=== PATIENT | male | born 1970 | race Caucasian/White ===

== ENCOUNTER → 2021-09-20 | Outpatient (CLI) | payer MEDICARE, OTHER, SELFPAY ==
--- NOTE | 2021-09-20 10:20 | HIP_PTH ---
PATIENT: MICHAEL PARIKH [facility] U#:[id number] AGE/SX: 51/M ROOM: RE09/20/[address]: Dr. Zeyad Chandler MD : [id number] BED: DIS: 09/20/2021 SPEC #: [id number] RECD: 09/20/21 15:06 STATUS: JOSEPH RERicardo #: [id number] VILMA: 09/20/21 10:[address]: Zeyad Chandler DEPT: SURGICAL PATHOLOGY RECD BY: Chiki Piedra ENTERED: 09/23/21 06:54 SP TYPE: TOTAL HIP OTHR DR: Dr. Roxi Stallworth MD [facility] Tissues: Hip, NOS Procedures: Decalcification bone/plaque Surgery Specimen Level IV HEADER OPERATION: Left total hip arthroplasty PRE-OP DIAGNOSIS: Grade 4 osteoarthritis left hip TISSUE SUBMITTED: Left hip bone and soft tissue MICROSCOPIC DIAGNOSIS Bone and tissue of left hip, total hip resection: Consistent with degenerative joint disease. AM:dhara 10/01/2021 MICROSCOPIC DESCRIPTION Slides are reviewed. GROSS DESCRIPTION Received is one container labeled with the patient's name and designated bone and soft tissue hip, left. The specimen consists of a flores femoral head measuring 4.5 x 4.5 x 5 cm. The articular surface shows minimal erosion and osteophyte formation. Also present in the specimen container are multiple irregular fragments of bone reamings and pink-yellow soft tissue measuring in aggregate 9 x 10 x 3 cm. Camera Control Operator sections are submitted in four cassettes as follows: 1 - soft tissue, 2-4 - bone after decalcification. / MARY:dhara 09/23/2021 TC:5 CPT: 84297, 54280
== END | disposition home or self-care (01) ==
LOC: LABSPEC 15:21
PROVIDERS: PCP Family Medicine; Visit Provider Specialist
DX: M16.12 Unilateral primary osteoarthritis, left hip (principal)
CPT/HCPCS: 88305; 88311

== ENCOUNTER → 2022-06-03 | Outpatient (CLI) | payer MEDICARE, OTHER, SELFPAY ==
[2022-06-03 16:17] LABS: Hematocrit 47.6 % (40-54); Hemoglobin 15.8 g/dL (13.0-16.5); Mean Corp Hgb Conc 33.2 g/dL (32-36); Mean Corpuscular Hgb 31.9 pg (27.0-32.0); Mean Corpuscular Volume 96.2 fL (80-94); Mean Platelet Vol. 10.3 fl (6.2-12.0); Platelet Count 406 K/mm3 (150-450); RBC Distribution Width CV 12.5 % (11.6-14.6); RBC Distribution Width SD 43.3 fl (35.1-43.9); Red Blood Count 4.95 M/mm3 (4.6-6.2); White Blood Count 8.5 K/mm3 (4.4-11.0)
[2022-06-03 16:59] LABS: Anion Gap 5 (5-15); BUN 16 mg/dL (7-18); BUN/Creat Ratio 24.2 RATIO (10-20); Calcium,Total 8.9 mg/dL (8.5-10.1); Chloride 110 mmol/L (98-107); Creatinine, Serum 0.66 mg/dL (0.70-1.30); EST Glomerular Filtration Rate 133 mL/min (>60); Est Glom Filt Rate - Afr Amer 161 mL/min (>60); Glucose 74 mg/dL (74-106); PSA,Total - Annual Screen 0.79 ng/mL (0.00-4.00); Potassium 4.2 mmol/L (3.5-5.1); Sodium Level 142 mmol/L (136-145)
== END | disposition home or self-care (01) ==
LOC: LAB 15:04
PROVIDERS: PCP Family Medicine; Referring Provider Urology; Visit Provider Urology
DX: Z12.5 Encounter for screening for malignant neoplasm of prostate (principal); M79.7 Fibromyalgia
CPT/HCPCS: 36415; 80048; 84153; 85027; G0103

== ENCOUNTER → 2022-06-12 | Outpatient (CLI) | payer MEDICARE, OTHER, SELFPAY ==
--- NOTE | 2022-06-12 13:54 | CT_ITS ---
STUDY: CT ABDOMEN AND PELVIS WITH CONTRAST REASON FOR EXAM: Male, 52 years old. Diffuse abdominal pain RADIATION DOSAGE (If Supplied By Facility): CTDIvol = ( 17.68 ) mGy, DLP = ( 2167.79 ) mGycm TECHNIQUE: Transaxial images were obtained from the dome of the diaphragm to the symphysis pubis without oral contrast. IV 100mL Isovue-370 was administered. Sagittal and coronal images were reconstructed. Individualized dose optimization techniques were used for this CT. COMPARISON: None. FINDINGS: The visualized lung bases are unremarkable. The visualized portions of the heart are within normal limits. Normal liver. There are surgical clips in the gallbladder fossa consistent with a prior cholecystectomy. Normal spleen. Normal pancreas. Normal bilateral adrenal glands. Normal right kidney. Left kidney shows hydronephrosis and dilated renal pelvis. Findings due to a 1.13 cm calcification at the left UPJ Postsurgical changes noted in the stomach without anastomotic leak. Normal small intestine. Post surgical changes also noted in the left upper quadrant without anastomotic leak. There is non-visualization of the appendix. Normal abdominal aorta. Normal inferior vena cava. Normal retroperitoneum. Normal urinary bladder. Normal abdominal wall. Bony structures show degenerative change with replaced left hip joint free of complication CT/Abdomen/Pelvis W IV Cont ONLY IMPRESSION: There is a 1.13 cm calcification in the left UPJ causing dilatation of the left renal calyces in the left renal pelvis. No free intraperitoneal fluid, air, or suspicious adenopathy Replaced left hip joint free of complication Electronically Signed: Ezequiel Jimenez MD at 14:48 EDT ,
== END | disposition home or self-care (01) ==
LOC: CT 13:52
PROVIDERS: PCP Family Medicine; Referring Provider Urology; Visit Provider Urology
DX: R10.2 Pelvic and perineal pain (principal)
CPT/HCPCS: 74177; Q9967

== ENCOUNTER 2022-06-25 13:59 | Day surgery (SDC) | payer MEDICARE, OTHER, SELFPAY ==
--- NOTE | 2022-06-25 14:05 | RAD_ITS ---
STUDY: X-RAY - ABDOMEN/PELVIS REASON FOR EXAM: Male, 52 years old. PRE-OP TECHNIQUE: Total views COMPARISON: None. FINDINGS: Normal visualized lung bases. There is an unremarkable bowel gas pattern. There is no demonstrated free abdominal air. Possible 1 cm stone over the left renal shadow. Surgical clips visible over the right upper quadrant. Normal soft tissue structures. There is a left hip prosthesis in place. RAD/Abdomen Single View IMPRESSION: There is a left renal calculus. Electronically Signed: Moncho Bustillo DO at 18:05 EDT ,
[2022-06-25 14:32] VITALS: BP 143/91; PULSE 73; RESP 14; TEMP 36.3; O2SAT 98; BMI 30.8
[2022-06-25] MEDS: Lactated Ringers 1,000 ML 15 ML IV (14:35)
[2022-06-25] MEDS: Cefazolin 2 GM in 0.9% Normal Saline 100 ML IV (15:19)
--- NOTE | 2022-06-25 15:53 | DCINST_ITS ---
Discharge Instructions Diet Discharge Diet: No restrictions, Light diet - advance as tolerated and Soft diet Activity Discharge Activity: Return to Normal Activity Follow Up Care Please Follow Up With: Kervin Nielson MD When: call for an appt in ten days to remove stent, need xray day of procedure to check stone. Test Results: Test results from this visit will be discussed in further detail at your follow- up appointment, if applicable. Discharge Plan Admission Primary Reason for Your Visit: left kidney stone Attending Provider: Kervin Nielson Primary Care Provider: Kristin Holliday Discharge Orders/Prescriptions Prescriptions: New ciprofloxacin HCl [Cipro] 500 mg tablet 500 mg PO BID Qty: 10 0RF oxycodone-acetaminophen [Endocet] 5-325 mg tablet 1 tab PO Q6H PRN (Reason: pain) 7 Days Qty: 20 0RF phenazopyridine [Pyridium] 100 mg tablet 100 mg PO TID PRN (Reason: pain) Qty: 14 0RF Continued venlafaxine [Effexor XR] 75 mg Capsule,Extended Release 24hr 225 mg PO DAILY gabapentin 600 mg tablet 600 mg PO TID acetaminophen 650 mg Tablet 650 mg PO Q6H PRN (Reason: Pain) tramadol 50 mg tablet 100 mg PO TID Label Comments: TAKE 1 TO 2 TABLETS BY MOUTH THREE TIMES DAILY NEEDED FOR SEVERE PAIN pantoprazole 20 mg tablet,delayed release (DR/EC) 20 mg PO DAILY ferrous sulfate 325 mg (65 mg iron) Tablet 325 mg PO BID zolpidem [Ambien] 10 mg Tablet 10 mg PO QHS PRN (Reason: Sleep) prazosin 2 mg capsule 2 mg PO QHS diclofenac sodium 1 % gel 1 g TOPICAL BID Centrum Silver Men 300-600-300 mcg Tablet 1 tab PO DAILY calcium carb-mag ox-zinc gluc 333-133-5 mg Tablet 3 tab PO DAILY Referrals / Follow Up: Kristin Holliday DO [Primary Care Provider] - Kervin Nielson MD [Med Staff - Active Staff] - Disposition Disposition (needs filled in before D/C Order can be placed): Home, Self Care
--- NOTE | 2022-06-25 15:53 | PCM.HP.STD ---
HPI - General General Date of Service: 06/25/22 Chief Complaint: Left kidney stone HPI Narrative MICHAEL PARIKH, is a 52 M who presents for treatment of a left kidney stone with shockwave lithotripsy here stent also placed a stent at the same time he also knows is possible he may need more than 1 treatment [facility] Medical History (Updated 06/25/22 @ 15:[address] Kervin Nielson MD) Alcohol use Anemia Anxiety Arthritis Asthma Depression Gastric reflux History of echocardiogram History of pain when walking History of ulceration Injury of back Injury of head and neck Kidney stones Leg cramps Migraine headache Seizures Sleep apnea Wears glasses Wears hearing aid Home Medications acetaminophen 650 mg tablet 650 mg PO Q6H PRN Pain 06/18/22 [History Last Taken Unknown] calcium carbonate 333 mg-magnesium oxide 133 mg-zinc gluc 5 mg tablet 3 tab PO DAILY 06/18/22 [History Last Taken Unknown] diclofenac sodium 1 % topical gel 1 g topical BID 06/18/22 [History Last Taken Unknown] ferrous sulfate 325 mg (65 mg iron) tablet 325 mg PO BID 06/18/22 [History Last Taken Unknown] gabapentin 600 mg tablet 600 mg PO TID 06/18/22 [History Last Taken 06/25/22] xlywpsjv-hnc-biqrt acid 300 mcg-lycopene 600 mcg-lutein 300 mcg tablet (Centrum Silver Men) 1 tab PO DAILY 06/18/22 [History Last Taken Unknown] pantoprazole 20 mg tablet,delayed release 20 mg PO DAILY 06/18/22 [History Last Taken 06/25/22] prazosin 2 mg capsule 2 mg PO QHS 06/18/22 [History Last Taken Unknown] tramadol 50 mg tablet 100 mg PO TID 06/18/22 [History Last Taken Unknown] venlafaxine 75 mg capsule,extended release 24 hr (Effexor XR) 225 mg PO DAILY 06/18/22 [History Last Taken 06/25/22] zolpidem 10 mg tablet (Ambien) 10 mg PO QHS PRN Sleep 06/18/22 [History Last Taken Unknown] ciprofloxacin HCl 500 mg tablet (Cipro) 500 mg PO BID #10 tabs 06/25/22 [Rx Last Taken Unknown] oxycodone-acetaminophen 5 mg-325 mg tablet (Endocet) 1 tab PO Q6H PRN pain 7 days #20 tabs 06/25/22 [Rx Last Taken Unknown] phenazopyridine 100 mg tablet (Pyridium) 100 mg PO TID PRN pain #14 tabs 06/25/22 [Rx Last Taken Unknown] Allergy/AdvReac Type Severity Reaction Status Date / Time amoxicillin Allergy Rash Verified 06/25/22 14:31 bupropion [From Wellbutrin] Allergy Other Verified 06/25/22 14:31 Penicillins [PCN] Allergy Rash Verified 06/25/22 14:31 Surgical History (Updated 06/18/22 @ 09:35 by Rosa Hendrix) History of esophagogastroduodenoscopy (EGD) Hx laparoscopic cholecystectomy Hx of arthroscopic knee surgery Hx of arthroscopy of shoulder Hx of colonoscopy Hx of gastric bypass Hx of hernia repair Hx of tonsillectomy Hx of total hip arthroplasty Hx of vasectomy Social History Smoking Status: Never smoker Vital Signs Vital Signs Vital Signs: 06/25/22 14:32 06/25/22 14:32 Temperature 97.4 F L Temperature Source Temporal Pulse Rate 73 Respiratory Rate 14 Respiratory Pattern Normal Blood Pressure 143/91 H Blood Pressure Mean 108 Blood Pressure Source Monitor Blood Pressure Position Semi-Fowlers Blood Pressure Location Left Arm Pulse Ox 98 Oxygen Delivery Method Room Air Weight Weight: 92 kg Body Mass Index (BMI) 30.8
--- NOTE | 2022-06-25 15:55 | OP.PCM_ITS ---
Report of Operation Date of Procedure: 06/25/22 Pre-Operative Diagnosis: Left kidney stone Post-Operative Diagnosis: The same Surgery/Procedure Performed:: Cystoscopy left stent placement, left extracorporeal shockwave lithotripsy Description of Surgical Findings:: Patient was taken back to the operating room and smooth duction of general anesthesia he was placed in dorsolithotomy position. The penis and testicles were prepped and draped in usual sterile fashion went into the bladder with a 21 Upper Sorbian rigid cystourethroscope the entire entire length the urethra is normal prostate was normal identified the left ureteral orifice advanced a wire up into the kidney and coiled in the kidney and over the wire placed a stent of 6 Upper Sorbian by 26 cm stent. The stent coiled in the kidney and bladder good position left the string of the stent but cut it short to prevent early extraction. The patient was then repositioned on the lithotripter table and we found the stone in the left renal pelvis about an 8 mm stone and we proceeded with shockwave lithotripsy a total of 3000 shocks were delivered to the stone at a rate of 90 shocks per minute power from 3 to 5 kV and we during the fragmentation we monitored the stone removed the therapy had around to make sure all the fragments were freed treated at the end we are very happy with the results from the treatment of the stone. Patient anesthetic was reversed he was taken back to PACU in good condition plan to see him back in about 10 days with a KUB and will do a stent removal if the stone looks like it is broken up all the way. Surgeon: Kervin Nielson Type of Anesthesia: General Drains: stent left Estimated Blood Loss (mL): none Admit VTE Documentation VTE Present on Admission: No VTE Mechan Device Prophylaxis: SCD's VTE Pharm Prophylaxis ordered?: No
[2022-06-25 16:21] VITALS: BP 138/83; BP 143/91; PULSE 77; RESP 18; TEMP 36.2; O2SAT 92
[2022-06-25] MEDS: Ketorolac 15 MG/ML Vial IV (16:31)
[2022-06-25 16:32] VITALS: BP 129/96; BP 143/91; PULSE 80; RESP 18; O2SAT 95
[2022-06-25 16:51] VITALS: BP 143/91; BP 144/95; PULSE 77; RESP 18; TEMP 36.4; O2SAT 97
[2022-06-25 17:19] VITALS: BP 143/91
== END 2022-06-25 17:42 | disposition home or self-care (01) ==
LOC: SDC 14:00 → AC 14:12
PROVIDERS: PCP Family Medicine; Referring Provider Urology; Visit Provider Urology
PROC: (CPT 50590; principal; 2022-06-25 16:10)
DX: N20.0 Calculus of kidney (principal); G47.30 Sleep apnea, unspecified; F41.9 Anxiety disorder, unspecified; F32.A Depression, unspecified; K21.9 Gastro-esophageal reflux disease without esophagitis; Z79.899 Other long term (current) drug therapy
CPT/HCPCS: 50590; 52332; 00873; 74018; J7120; C1769; C2617; J2405

== ENCOUNTER → 2022-07-10 | Outpatient (CLI) | payer MEDICARE, OTHER, SELFPAY ==
--- NOTE | 2022-07-10 10:00 | RAD_ITS ---
STUDY: X-RAY - ABDOMEN/PELVIS REASON FOR EXAM: Male, 52 years old. Flank pain TECHNIQUE: Two AP supine views of the abdomen and pelvis. COMPARISON: 06/25/2022 FINDINGS: Normal visualized lung bases. Left-sided JJ stent has been placed since the previous study. It appears in satisfactory position. Previous noted left renal calculus is no longer identified, and static, there are are multiple calcific densities noted along the aspect of the distal stent suggesting lithotripsy has occurred since the previous study. Continued follow-up recommended to assure clearance of the calcific densities along the distal stent. There is an unremarkable bowel gas pattern. There is no demonstrated free abdominal air. The visualized liver, spleen and kidneys are grossly normal in size and morphology. Normal soft tissue structures. There are diffuse degenerative changes of the visualized lumbar spine. Replaced left hip joint free of complication RAD/Abdomen Single View IMPRESSION: I suspect there has been lithotripsy between the previous study and current study. Previously noted large calcification projecting over the left kidney no longer identified. Instead, there is now a left-sided JJ stent in place with multiple calcific densities now noted along the distal aspect of the stent. Follow-up recommended to assure passage of the calcifications. No acute findings, degenerative bony changes Electronically Signed: Ezequiel Jimenez MD at 10:27 EDT ,
== END | disposition home or self-care (01) ==
PROVIDERS: PCP Family Medicine; Referring Provider Urology; Visit Provider Urology
DX: N20.0 Calculus of kidney (principal)
CPT/HCPCS: 74018

== ENCOUNTER 2022-07-11 00:43 | Observation (INO) | payer MEDICARE, OTHER, SELFPAY ==
[2022-07-11 00:08] VITALS: BP 140/92; PULSE 67; RESP 18; TEMP 36.3; O2SAT 98; BMI 31.7
[2022-07-11] MEDS: 0.9% Saline Lock 10 ML Syringe IV (01:05)
[2022-07-11] MEDS: 0.9% Normal Saline 1,000 ML 150 ML IV ×3 (01:05→18:04)
[2022-07-11] MEDS: Morphine 4 MG/ML Syringe IV (01:06)
[2022-07-11] MEDS: Gabapentin 600 MG Tablet PO ×4 (01:16→21:50)
[2022-07-11] MEDS: Venlafaxine XR 75 MG Capsule 225 MG PO (01:19)
[2022-07-11] MEDS: traMADol 50 MG Tablet 100 MG PO ×4 (01:21→21:49)
[2022-07-11] MEDS: Zolpidem Tartrate 5 MG Tablet PO (01:21)
--- NOTE | 2022-07-11 01:37 | NURSING ---
PT GIVEN ALL HIS HS MEDS SINCE HE HAS NOT HAD ANY PER PT AND REQUEST, INCLUDING THE AMBIEN D/T PT HAVING PTSD AND OFTEN HAS DIFFICULTY SLEEPING. MULTIPLE STONES NOTED IN URINAL AND LEFT FOR DR VEGAS TO SEE IN AM.
--- NOTE | 2022-07-11 06:00 | EKG12_ITS ---
Test Reason : AM EKG Blood Pressure : / mmHG Vent. Rate : 078 BPM Atrial Rate : 078 BPM P-R Int : 154 ms QRS Dur : 082 ms QT Int : 372 ms P-R-T Axes : 063 058 036 degrees QTc Int : 424 ms Normal sinus rhythm Normal ECG No previous ECGs available Confirmed by OMKAR KELLEY ([id number]), makeup editor MAYE CUELLAR ([id number]) on 07/16/2022 10:29:44 AM Referred By: Kervin Nielson Confirmed By:OMKAR KELLEY
[2022-07-11 06:55] LABS: Absolute Lymphocyte Count 2.37 X10^3/uL (0.83-4.51); Absolute Neutrophil Count 4.7 X10^3/uL (2.0-7.7); Basophil# 0.06 X10^3/uL; Basophil% 0.7 % (0-1); Eosinophil# 0.24 X10^3/uL; Eosinophils% 2.8 % (0-5); Hematocrit 42.2 % (40-54); Hemoglobin 13.8 g/dL (13.0-16.5); Lymphocyte # 2.37 X10^3/ul (0.83-4.51); Mean Corp Hgb Conc 32.7 g/dL (32-36); Mean Corpuscular Hgb 31.9 pg (27.0-32.0); Mean Corpuscular Volume 97.7 fL (80-94); Mean Platelet Vol. 10.1 fl (6.2-12.0); Monocyte# 1.05 X10^3/uL; Monocyte% 12.4 % (0-10); NRBC Flagged by Analyzer 0 % (0-5); Neutrophil # 4.71 X10^3/uL (2.7-7.7); Neutrophil % 55.7 % (47-70); Platelet Count 284 K/mm3 (150-450); RBC Distribution Width CV 12.4 % (11.6-14.6); RBC Distribution Width SD 44.7 fl (35.1-43.9); Red Blood Count 4.32 M/mm3 (4.6-6.2); White Blood Count 8.5 K/mm3 (4.4-11.0)
[2022-07-11 07:55] VITALS: BP 133/90; PULSE 69; RESP 18; TEMP 36.5; O2SAT 96
[2022-07-11] MEDS: 0.9% Normal Saline 1,000 ML 999 ML IV (08:15)
[2022-07-11] MEDS: Multivitamins,Ther W-Minerals Tablet 1 TABLET PO (09:20)
[2022-07-11] MEDS: Ferrous Sulfate 325 MG Tablet PO ×2 (09:20→18:05)
[2022-07-11] MEDS: Pantoprazole Sodium 20 MG Tablet PO (09:20)
--- NOTE | 2022-07-11 14:00 | RAD_ITS ---
STUDY: X-RAY - ABDOMEN/PELVIS REASON FOR EXAM: Male, 52 years old. kidney stones TECHNIQUE: Two AP supine views of the abdomen and pelvis. COMPARISON: Yesterday FINDINGS: Normal visualized lung bases. Previously noted left sided JJ stent has been removed. Persistent subtle densities in the left hemipelvis likely represent residua of the lithotripsy. There is an unremarkable bowel gas pattern. There is no demonstrated free abdominal air. The visualized liver, spleen and kidneys are grossly normal in size and morphology. Normal soft tissue structures. Normal visualized osseous structures. Replaced left hip joint free of complication RAD/Abdomen Single View IMPRESSION: Status post removal of the left-sided JJ stent. Persistent subtle densities in the left hemipelvis likely sequela from previous lithotripsy No acute findings Electronically Signed: Ezequiel Jimenez MD at 14:01 EDT ,
[2022-07-11 15:32] VITALS: BP 123/72; PULSE 68; RESP 18; TEMP 36.2; O2SAT 97
--- NOTE | 2022-07-11 15:57 | CASEMGMT ---
DIDI CM in to discuss SNYDER form with patient. RN CM explained SNYDER form, patient voiced understanding. Pt signed form and filed in chart. Pt provided with a copy of signed SNYDER form. Patient had no further questions or concerns at this time.
--- NOTE | 2022-07-11 17:59 | HP.PCM_ITS ---
HPI - General General Date of Admission: 07/11/22 Chief Complaint: Severe left flank pain HPI Narrative MICHAEL PARIKH, is a 52 M who presents to the hospital with severe pain on the left side status post left ESWL and stent placement stent was removed then he presented to an outside emergency room with severe left flank pain he was transferred here for further care KUB demonstrates multiple fragments of distal left ureter has not been able to pass so plan to take him to surgery tomorrow for laser lithotripsy of these fragments and extraction of these fragments and stent placement to left side. [facility] Medical History (Updated 07/11/22 @ 00:22 by Lei Gunn) Alcohol use Anemia Anxiety Arthritis Asthma Depression Gastric reflux History of echocardiogram History of pain when walking History of ulceration Injury of back Injury of head and neck Kidney stones Leg cramps Migraine headache Seizures Sleep apnea Wears glasses Home Medications acetaminophen 650 mg tablet 650 mg PO Q6H PRN Pain 06/18/22 [History Last Taken Unknown] calcium carbonate 333 mg-magnesium oxide 133 mg-zinc gluc 5 mg tablet 3 tab PO DAILY supplement 06/18/22 [History Last Taken 07/10/22] diclofenac sodium 1 % topical gel 1 g topical BID joint pain 06/18/22 [History Last Taken Unknown] ferrous sulfate 325 mg (65 mg iron) tablet 325 mg PO BID supplement 06/18/22 [History Last Taken 07/10/22] gabapentin 600 mg tablet 600 mg PO TID joint pain 06/18/22 [History Last Taken 07/10/22] ctrtuasd-ytb-udvfl acid 300 mcg-lycopene 600 mcg-lutein 300 mcg tablet (Centrum Silver Men) 1 tab PO DAILY supplement 06/18/22 [History Last Taken 07/10/22] pantoprazole 20 mg tablet,delayed release 20 mg PO DAILY GERD 06/18/22 [History Last Taken 07/10/22] prazosin 2 mg capsule 2 mg PO QHS nightmares 06/18/22 [History Last Taken 07/09/22] tramadol 50 mg tablet 100 mg PO TID pain 06/18/22 [History Last Taken 07/10/22] venlafaxine 75 mg capsule,extended release 24 hr (Effexor XR) 225 mg PO DAILY anxiety 06/18/22 [History Last Taken 07/10/22] zolpidem 10 mg tablet (Ambien) 10 mg PO QHS PRN Sleep 06/18/22 [History Last Taken 07/09/22] oxycodone-acetaminophen 5 mg-325 mg tablet (Endocet) 2 tab PO Q4H PRN pain 7 days #20 tabs 07/10/22 [Rx Last Taken Unknown] Allergy/AdvReac Type Severity Reaction Status Date / Time amoxicillin Allergy Rash Verified 06/25/22 14:31 bupropion [From Wellbutrin] Allergy Other Verified 06/25/22 14:31 Penicillins [PCN] Allergy Rash Verified 06/25/22 14:31 Surgical History History of esophagogastroduodenoscopy (EGD) Hx laparoscopic cholecystectomy Hx of arthroscopic knee surgery Hx of arthroscopy of shoulder Hx of colonoscopy Hx of gastric bypass Hx of hernia repair Hx of tonsillectomy Hx of total hip arthroplasty Hx of vasectomy Social History Smoking Status: Current every day smoker tobacco type: cigarettes Vital Signs Vital Signs Vital Signs: 07/11/22 00:08 07/11/22 07:55 07/11/22 15:32 Temperature 97.4 F L 97.7 F L 97.2 F L Temperature Source Oral Temporal Temporal Pulse Rate 67 69 68 Respiratory Rate 18 18 18 Blood Pressure 140/92 H 133/90 H 123/72 H Blood Pressure Mean 108 104 89 Blood Pressure Source Monitor Blood Pressure Position Semi-Fowlers Blood Pressure Location Left Arm Pulse Ox 98 96 97 Oxygen Delivery Method Room Air Room Air Room Air Weight Weight: 94.7 kg Body Mass Index (BMI) 31.7 Physical Exam Const alert and oriented x3 General Appearance: cooperative HEENT normocephalic, head/scalp atraumatic, EAC's normal and TM's normal bilaterally Eyes PERRL and EOMs intact bilaterally Pupil: sluggish Neck no lymphadenopathy, supple and no JVD General: trachea midline Lymph Lymphatic: no lymphadenopathy noted, lymphedema and lymphadenopathy Resp normal respiratory effort, normal air movement and clear to auscultation nery aterally Cardio regular rate, regular rhythm and peripheral pulses 2+ throughout GI soft to palpation, non-tender and non-distended Extremity normal capillary refill and no clubbing, cyanosis or edema General Extremity: no tenderness to palpation of joints or extremities Skin no rashes or lesions noted General Skin Exam: turgor normal Lesions: no lesions Rashes: no rashes Neuro CN's II-XII intact bilaterally Speech: speech normal Motor Exam: strength 5/5 throughout; Negative for general weakness Psych thought process normal, cooperative and affect normal Appearance: appropriate Results Lab / Micro Data Result Diagrams: 07/11/22 06:26 Labs: Laboratory Results - last 24 hr 07/11/22 06:26: WBC 8.5, RBC 4.32 L, Hgb 13.8, Hct 42.2, MCV 97.7 H, MCH 31.9, MCHC 32.7, RDW Std Deviation 44.7 H, RDW Coeff of Nichole 12.4, Plt Count 284, MPV 10.1, Immature Gran % (Auto) 0.400, Neut % (Auto) 55.7, Lymph % (Auto) 28.0, [place] % (Auto) 12.4 H, Eos % (Auto) 2.8, Baso % (Auto) 0.7, Absolute Neuts (auto) 4.7, Absolute Lymphs (auto) 2.37, Nucleated RBC % 0 Radiology Impression KUB X-Ray 07/11/22 14:00 IMPRESSION: Status post removal of the left-sided JJ stent. Persistent subtle densities in the left hemipelvis likely sequela from previous lithotripsy No acute findings Electronically Signed: Ezequiel Jimenez MD at 14:01 EDT , Assessment & Plan Assessment/Plan (1) Kidney stone on left side: PLAN: Plan for laser and basket extraction of stones on the left side and stent placement
[2022-07-11] MEDS: Doxazosin 1 MG Tablet 2 MG PO (21:49)
[2022-07-11 22:00] VITALS: BP 131/80; PULSE 68; RESP 14; TEMP 36.5; O2SAT 95
[2022-07-12] MEDS: 0.9% Normal Saline 1,000 ML 150 ML IV ×2 (00:15→05:50)
[2022-07-12] MEDS: Gabapentin 600 MG Tablet PO (05:50)
[2022-07-12] MEDS: traMADol 50 MG Tablet 100 MG PO (05:50)
[2022-07-12 05:54] VITALS: BP 147/89; PULSE 66; RESP 15; TEMP 36.6; O2SAT 97; BMI 31.6
--- NOTE | 2022-07-12 07:35 | NURSING ---
pt transferred down for surgery via bed. present
--- NOTE | 2022-07-12 07:59 | OP.PCM_ITS ---
Report of Operation Date of Procedure: 07/12/22 Pre-Operative Diagnosis: Distal stones in the left ureter status post shockwave lithotripsy Post-Operative Diagnosis: Stones past Surgery/Procedure Performed:: Cystoscopy, balloon dilation of left ureter, left ureteroscopy no stent Description of Surgical Findings:: Patient presented to the hospital with severe pain on the left side after stent removal he had a bunch of fragments that had passed down from the kidney were stuck in the distal ureter so today plan to take him to surgery to remove these stone fragments stuck in the distal ureter, KUB yesterday demonstrated the stones in distal ureter of note the patient stated that he did pass a few fragments last night Patient was taken back to the operating room at the [facility] of general anesthesia he was placed in dorsolithotomy position. The penis testicles were prepped and draped in usual fashion when in the bladder with a 21 Haitian rigid cystourethroscope I then cannulated the left ureter orifice with a Glidewire balloon dilated the distal ureter and then went in with a flexible ureteroscope was able to go all the way to the kidney inspected upper pole midpole lower pole the kidney worked my way all the way down the ureter and there was no more stone fragments left across the ureter he had passed all the stone, the night before. So therefore no stent was placed bladder was drained and is taken back to PACU in good condition to be discharged home today. Surgeon: Kervin Nielson Type of Anesthesia: General Drains: no stent Admit VTE Documentation VTE Present on Admission: No VTE Mechan Device Prophylaxis: SCD's VTE Pharm Prophylaxis ordered?: No
--- NOTE | 2022-07-12 07:59 | DCINST_ITS ---
Discharge Instructions Diet Discharge Diet: No restrictions Dressing / Incision Call your doctor if your incision/area has: Continuous Slow Oozing, Increased Pain/ Swelling, Increased Redness and Foul Smelling Discharge Call your doctor if you observe: Fever of 101 or Higher, Numbness or Tingling, Shortness of breath, Dizziness, Calf discomfort and Uncontrolled pain Follow Up Care Please Follow Up With: Kervin Nielson MD Test Results: Test results from this visit will be discussed in further detail at your follow- up appointment, if applicable. Discharge Plan Admission Admit Date/Time: 07/11/22 00:43 Primary Reason for Your Visit: stone Attending Provider: Kervin Nielson Primary Care Provider: Kristin Holliday Discharge Orders/Prescriptions Prescriptions: No Action venlafaxine [Effexor XR] 75 mg Capsule,Extended Release 24hr 225 mg PO DAILY gabapentin 600 mg tablet 600 mg PO TID acetaminophen 650 mg Tablet 650 mg PO Q6H PRN (Reason: Pain) tramadol 50 mg tablet 100 mg PO TID Label Comments: TAKE 1 TO 2 TABLETS BY MOUTH THREE TIMES DAILY NEEDED FOR SEVERE PAIN pantoprazole 20 mg tablet,delayed release (DR/EC) 20 mg PO DAILY ferrous sulfate 325 mg (65 mg iron) Tablet 325 mg PO BID zolpidem [Ambien] 10 mg Tablet 10 mg PO QHS PRN (Reason: Sleep) prazosin 2 mg capsule 2 mg PO QHS diclofenac sodium 1 % gel 1 g TOPICAL BID Centrum Silver Men 300-600-300 mcg Tablet 1 tab PO DAILY calcium carb-mag ox-zinc gluc 333-133-5 mg Tablet 3 tab PO DAILY oxycodone-acetaminophen [Endocet] 5-325 mg tablet 2 tab PO Q4H PRN (Reason: pain) 7 Days Qty: 20 0RF Referrals / Follow Up: Kristin Holliday DO [Primary Care Provider] - Kervin Nielson MD [Med Staff - Active Staff] -
--- NOTE | 2022-07-12 08:03 | PCM.DC.SUM ---
Providers Date of Admission: 07/11/22 Primary Care Physician: Dr. Kristin Holliday DO Reason For Visit: KIDNEY STONE Diagnosis Discharge Diagnosis (1) Kidney stone on left side: Status: Acute Code(s): N20.0 - Calculus of kidney Plan: Plan for laser and basket extraction of stones on the left side and stent placement Medications at Discharge Home Medications acetaminophen 650 mg tablet 650 mg PO Q6H PRN Pain 06/18/22 calcium carbonate 333 mg-magnesium oxide 133 mg-zinc gluc 5 mg tablet 3 tab PO DAILY supplement 06/18/22 diclofenac sodium 1 % topical gel 1 g topical BID joint pain 06/18/22 ferrous sulfate 325 mg (65 mg iron) tablet 325 mg PO BID supplement 06/18/22 gabapentin 600 mg tablet 600 mg PO TID joint pain 06/18/22 twhfvukt-eeb-ahqwa acid 300 mcg-lycopene 600 mcg-lutein 300 mcg tablet (Centrum Silver Men) 1 tab PO DAILY supplement 06/18/22 pantoprazole 20 mg tablet,delayed release 20 mg PO DAILY GERD 06/18/22 prazosin 2 mg capsule 2 mg PO QHS nightmares 06/18/22 tramadol 50 mg tablet 100 mg PO TID pain 06/18/22 venlafaxine 75 mg capsule,extended release 24 hr (Effexor XR) 225 mg PO DAILY anxiety 06/18/22 zolpidem 10 mg tablet (Ambien) 10 mg PO QHS PRN Sleep 06/18/22 oxycodone-acetaminophen 5 mg-325 mg tablet (Endocet) 2 tab PO Q4H PRN pain 7 days #20 tabs 07/10/22 Hospital Course Summary of Care Provided Hospital Course: Patient was admitted for severe pain on the left side after stent removal he had shockwave lithotripsy the week before and had broken up a large stone and he had developed severe fragments in the distal left ureter causing severe pain so he was admitted for pain control he did pass some fragments initially we got an x-ray still showed a lot of fragments left and then we put him on the schedule for the next day. Overnight he did pass a few more fragments the next day took him to surgery we did ureteroscopy and he had passed all the fragments so at that point in surgery we did not put a stent in he was taken back to PACU good condition he will go home today and follow-up as planned. Physical Exam Const alert and oriented x3 General Appearance: cooperative HEENT normocephalic, head/scalp atraumatic, EAC's normal and TM's normal bilaterally Eyes PERRL and EOMs intact bilaterally Pupil: sluggish Neck no lymphadenopathy, supple and no JVD General: trachea midline Lymph Lymphatic: no lymphadenopathy noted, lymphedema and lymphadenopathy Resp normal respiratory effort, normal air movement and clear to auscultation bilaterally Cardio regular rate, regular rhythm and peripheral pulses 2+ throughout GI soft to palpation, non-tender and non-distended Extremity normal capillary refill and no clubbing, cyanosis or edema General Extremity: no tenderness to palpation of joints or extremities Skin no rashes or lesions noted General Skin Exam: turgor normal Lesions: no lesions Rashes: no rashes Neuro CN's II-XII intact bilaterally Speech: speech normal Motor Exam: strength 5/5 throughout; Negative for general weakness Psych thought process normal, cooperative and affect normal Appearance: appropriate Weight / BMI Weight Weight: 94.376 kg Body Mass Index (BMI) 31.6 ABG / Lab / Microbiology Data Result Diagrams: 07/11/22 06:26 Radiography Diagnostic Testing: Radiology Impression KUB X-Ray 07/11/22 14:00 IMPRESSION: Status post removal of the left-sided JJ stent. Persistent subtle densities in the left hemipelvis likely sequela from previous lithotripsy No acute findings Electronically Signed: Ezequiel Jimenez MD at 14:01 EDT Reading Location ID and State: [address] [place] [address] , Service support , D/C Instructions Discharge Diet: No restrictions Call your doctor if your incision/area has: Continuous Slow Oozing, Increased Pain/ Swelling, Increased Redness and Foul Smelling Discharge Call your doctor if you observe: Fever of 101 or Higher, Numbness or Tingling, Shortness of breath, Dizziness, Calf discomfort and Uncontrolled pain Please Follow Up With: Kervin Nielson MD Meaningful Use Info Meaningful Use Diagnoses (Choose all that apply): None applicable Discharge Plan Admission Admit Date/Time: 07/11/22 00:43 Primary Reason for Your Visit: stone Attending Provider: Kervin Nielson Primary Care Provider: Kristin Holliday Discharge Orders/Prescriptions Prescriptions: No Action venlafaxine [Effexor XR] 75 mg Capsule,Extended Release 24hr 225 mg PO DAILY gabapentin 600 mg tablet 600 mg PO TID acetaminophen 650 mg Tablet 650 mg PO Q6H PRN (Reason: Pain) tramadol 50 mg tablet 100 mg PO TID Label Comments: TAKE 1 TO 2 TABLETS BY MOUTH THREE TIMES DAILY NEEDED FOR SEVERE PAIN pantoprazole 20 mg tablet,delayed release (DR/EC) 20 mg PO DAILY ferrous sulfate 325 mg (65 mg iron) Tablet 325 mg PO BID zolpidem [Ambien] 10 mg Tablet 10 mg PO QHS PRN (Reason: Sleep) prazosin 2 mg capsule 2 mg PO QHS diclofenac sodium 1 % gel 1 g TOPICAL BID Centrum Silver Men 300-600-300 mcg Tablet 1 tab PO DAILY calcium carb-mag ox-zinc gluc 333-133-5 mg Tablet 3 tab PO DAILY oxycodone-acetaminophen [Endocet] 5-325 mg tablet 2 tab PO Q4H PRN (Reason: pain) 7 Days Qty: 20 0RF Referrals / Follow Up: Kristin Holliday DO [Primary Care Provider] - Kervin Nielson MD [Med Staff - Active Staff] - Disposition Discharge Orders: Discharge Patient (Routine); Ordered 07/12/22 Ordered By: Dr. Kervin Nielson
--- NOTE | 2022-07-12 08:04 | NURSING ---
pt off unit in OR/PACU area
[2022-07-12 08:13] VITALS: BP 123/70; BP 147/89; PULSE 66; RESP 18; TEMP 36.3; O2SAT 95
[2022-07-12 08:15] VITALS: BP 125/73; BP 147/89; PULSE 74; RESP 18; O2SAT 95
[2022-07-12 08:37] VITALS: BP 126/74; BP 147/89; PULSE 74; RESP 18; TEMP 36.3; O2SAT 96
[2022-07-12 08:56] VITALS: BP 119/82; PULSE 63; RESP 18; TEMP 36.3; O2SAT 96
[2022-07-12] MEDS: Pantoprazole Sodium 20 MG Tablet PO (08:58)
[2022-07-12] MEDS: Multivitamins,Ther W-Minerals Tablet 1 TABLET PO (08:58)
[2022-07-12] MEDS: Venlafaxine XR 75 MG Capsule 225 MG PO (08:58)
[2022-07-12] MEDS: Ferrous Sulfate 325 MG Tablet PO (08:58)
[2022-07-12 10:21] VITALS: BP 124/76; PULSE 78; RESP 18; TEMP 36.7; O2SAT 97
== END 2022-07-12 10:20 | disposition home or self-care (01) ==
PROVIDERS: Anesthesiology; Admitting Provider Urology; PCP Family Medicine; Visit Provider Urology
PROC: 0TJ98ZZ Inspection of Ureter, Via Natural or Artificial Opening Endoscopic (ICD-10-PCS; CPT 52352; principal; 2022-07-12 07:30)
DX: N20.2 Calculus of kidney with calculus of ureter (principal); F17.210 Nicotine dependence, cigarettes, uncomplicated; M19.90 Unspecified osteoarthritis, unspecified site; J45.909 Unspecified asthma, uncomplicated; K21.9 Gastro-esophageal reflux disease without esophagitis; G47.30 Sleep apnea, unspecified; Z79.899 Other long term (current) drug therapy; Z98.84 Bariatric surgery status; D64.9 Anemia, unspecified
CPT/HCPCS: 52344; 00910; 36415; 74018; 76000; 85025; 93005; 96361; 96374; 99221; 99406; J7030; A4216; C1726; C1769; G0378; J2405

== ENCOUNTER → 2023-04-06 | Outpatient (CLI) | payer MEDICARE, OTHER, SELFPAY ==
[2023-04-06 18:16] LABS: Amphetamine Urine VISTA NEGATIVE (<1000 ng/mL); Barbiturate Urine VISTA NEGATIVE (< 200 ng/mL); Benzodiazepine Urine VISTA NEGATIVE (< 200 ng/mL); Cocaine Urine VISTA NEGATIVE (< 300 ng/mL); Ecstacy Urine VISTA NEGATIVE (< 500 ng/mL); Methadone Urine VISTA NEGATIVE (< 300 ng/mL); PCP Urine VISTA NEGATIVE (< 25 ng/mL); THC Urine VISTA NEGATIVE (< 50 ng/mL); Vista UDS pH Range 5
== END | disposition home or self-care (01) ==
PROVIDERS: PCP Nurse Practitioner Family; Referring Provider Anesthesiology Pain Medicine; Visit Provider Anesthesiology Pain Medicine
DX: Z79.891 Long term (current) use of opiate analgesic (principal); Z79.899 Other long term (current) drug therapy
CPT/HCPCS: 80307

== ENCOUNTER → 2024-10-21 | Outpatient (CLI) | payer MEDICARE, OTHER, SELFPAY ==
[2024-10-21 09:57] LABS: Hematocrit 40.5 % (40-54); Hemoglobin 13.4 g/dL (13.0-16.5); Immature Granulocytes Count 0.020 X10^3/uL (0.0-0.0); Mean Corp Hgb Conc 33.1 g/dL (32-36); Mean Corpuscular Volume 89.8 fL (80-94); Mean Platelet Vol. 10.0 fl (6.2-12.0); NRBC Flagged by Analyzer 0 % (0-5); POSITIVE MORPHOLOGY YES; Platelet Count 288 K/mm3 (150-450); RBC Distribution Width CV 13.9 % (11.6-14.6); RBC Distribution Width SD 45.5 fl (35.1-43.9); Red Blood Count 4.51 M/mm3 (4.6-6.2); White Blood Count 5.3 K/mm3 (4.4-11.0)
[2024-10-21 10:38] LABS: Differential Indicated SCAN CRITERIA MET
[2024-10-21 10:51] LABS: Anion Gap 11 (5-15); BUN 9 mg/dL (4-19); BUN/Creat Ratio 10.4 RATIO (10-20); Calcium,Total 8.8 mg/dL (7.6-11.0); Carbon Dioxide 24.5 mmol/L (21.0-32.0); Chloride 102 mmol/L (98-108); Glucose 106 mg/dL (70-99); Potassium 3.9 mmol/L (3.3-5.1)
== END | disposition home or self-care (01) ==
PROVIDERS: Referring Provider Physician Assistant Surgical; Visit Provider Physician Assistant Surgical
DX: Z01.818 Encounter for other preprocedural examination (principal)
CPT/HCPCS: 36415; 80048; 85025

== ENCOUNTER → 2025-02-09 | Outpatient (CLI) | payer MEDICARE, OTHER, SELFPAY ==
[2025-02-09 14:21] LABS: AST(SGOT) 23 U/L (<=37); Alanine Aminotransfer ALT/SGPT 30 U/L (<=46); Albumin, Serum 4.5 g/dL (3.5-5.0); Alkaline Phosphatase 94 U/L (40-129); Anion Gap 11 (5-15); BUN 8 mg/dL (4-19); BUN/Creat Ratio 7.4 RATIO (10-20); Calcium,Total 9.2 mg/dL (7.6-11.0); Carbon Dioxide 25.5 mmol/L (21.0-32.0); Chloride 105 mmol/L (98-108); Globulin 2.5 g/dL (2.2-4.2); Glucose 86 mg/dL (70-99); Magnesium 2.3 mg/dL (1.5-2.2); Potassium 4.3 mmol/L (3.3-5.1); Vitamin B12 257 pg/mL (180-914)
[2025-02-09 14:28] LABS: Ammonia 27.0 umol/L (16-60)
== END | disposition home or self-care (01) ==
DX: R56.9 Unspecified convulsions (principal); G31.84 Mild cognitive impairment of uncertain or unknown etiology
CPT/HCPCS: 36415; 80053; 81401; 82140; 82607; 83735; 84443

== ENCOUNTER → 2025-02-20 | Outpatient (CLI) | payer MEDICARE, OTHER, SELFPAY ==
--- NOTE | 2025-02-20 13:00 | RAD_ITS ---
PROCEDURE: HIPS B/L MIN 2 VIEWS W/ PELVIS 02/20/2025 REASON FOR EXAM: HIP PAIN TECHNIQUE: Procedure Code: [id number] Modality: DX Procedure: HIPS B/L 5 VIEWS W/ PELVIS Laterality: Bilateral. COMPARISON: Abdomen study of 07/11/2022. RAD/Hips B/L min 2 views w/ Pelvis IMPRESSION: A neurostimulator is partially visualized over the lower abdomen. Degenerative changes of the lower lumbar spine are again present. Sacroiliac joints appear symmetric and within the normal range for age. Bilateral total hip prostheses are in place, with satisfactory alignment noted. No evidence of loosening or metallic fracture. No fracture or dislocation is evident. Reading Location: [id number]
--- OUTSIDE RECORDS SUMMARY | 2025-02-20 17:41 | XMS RPT_ITS | CCD ---
Author Organization [facility] ion [facility] Care Team Providers Care Bean Weigher Name Role Phone Deb Rasheed LPN S Unavailable [phone] Wili CRANE Deb S Unavailable Ananya Kemp Unavailable DINA REPROGRAPHICS TECHNICIAN-BREEDER HEN SERVICE TECHNICIAN, YOSI Leach Consulting Kaseyvayulissa lable UNGERER REPROGRAPHICS TECHNICIAN-VERONICA, ANANYA Primary Care Unavai labLUIS Giles DO Admitting Unavailable LUIS LUCIANO DO Attending Unavailable KAPPER REPROGRAPHICS TECHNICIAN-BREEDER HEN SERVICE TECHNICIAN, CORRINA Mena Consulting Unavaila ble LUIS LUCIANO DO Attending Unavailable UNGERER REPROGRAPHICS TECHNICIAN-VERONICA, ANANYA Primary Care Physician Sunitha Rodriguez PA-C Unavailable Dr. Ramy Montoya Unavailable Floridalma Sanchez MA Unavailable Unavailable Sunitha Bergman Primary Care Provider Julia Rojas Attending Provider [phone] Julia Rojas Referring Provider Sunitha Rodriguez Primary Care Unavailable Julia Romero Referring Unavailable Julia Romero Attending Unavailable UNGERER, ANANYA RETAIL SPECIALIST Consulting Unavailable UNGERER, ANANYA RETAIL SPECIALIST Primary Care Unavailable UNGERER, ANANYA RETAIL SPECIALIST Admitting Unavailable UNGERER, ANANYA RETAIL SPECIALIST Attending Unavailable PROVIDER, UNKNOWN Consulting Unavailable UNGERER, ANANYA RETAIL SPECIALIST Consulting Unavailable UNGERER, ANANYA RETAIL SPECIALIST Primary Care Unavailable UNGERER, ANANYA RETAIL SPECIALIST Admitting Unavailable UNGERER, ANANYA RETAIL SPECIALIST Attending Unavailable PROVIDER, UNKNOWN Consulting Unavailable JASON CHILD DO Admitting Unavailable JASON CHILD DO Attending Unavailable JASON CHILD DO Primary Care Unavailable ANANYA NARVAEZ NP Consulting Unavailable PROVIDER, UNKNOWN Consulting Unavailable JENNIFER, SUNITHA PAC Consulting Unavailable JULIA ROMERO Admitting Unavailable JULIA ROMERO Attending Unavailable JULIA ROMERO Primary Care Unavailable PROVIDER, UNKNOWN Consulting Unavailable RODRIGUEZ, SUNITHA PAC Primary Care Unavailable RODRIGUEZ, SUNITHA PAC Consulting Unavailable RODRIGUEZ, SUNITHA PAC Admitting Unavailable RODRIGUEZ, SUNITHA PAC Attending Unavailable PROVIDER, UNKNOWN Consulting Unavailable RAMY MONTOYA MD Admitting Unavailable RODRIGUEZ, SUNITHA PAC Consulting Unavailable RAMY MONTOYA MD Attending Unavailable RAMY MONTOYA MD Primary Care Unavailable PROVIDER, UNKNOWN Consulting Unavailable RODRIGUEZ, SUNITHA PAC Consulting Unavailable RAMY MONTOYA MD Admitting Unavailable RAMY MONTOYA MD Attending Unavailable RAMY MONTOYA MD Primary Care Unavailable PROVIDER, UNKNOWN Consulting Unavailable Allergies Allergy Classification Reported Allergen(s) Allergy Type Date of Onset Reaction(s) Facility (3 sources) Amoxicillin Drug Allergy [address] [facility] (4 sources) buPROPion; Translations: [bupropion] Drug Allergy 3 Aggressive behavior (finding) [facility] Comment on above: AGGRESSIVE BEHAVIOR (3 sources) Penicillins Allergy to substance [address] [facility] (1 source) Penicillin; Translations: [penicillin] Drug Allergy [facility] (10 sources) buPROPion Drug Allergy [facility], [facility], [facility]. (10 sources) Penicillins [facility], [facility], [facility]. (1 source) Amoxicillin Drug Allergy 3 [facility] Repository (1 source) buPROPion Drug Allergy 3 [facility] (1 source) Penicillins Drug allergy (disorder) 3 [facility] (1 source) buPROPion Drug Allergy [facility] Repository (1 source) Penicillin Drug Allergy [facility] Repository Medications Current Medications Medication Drug Class(es) Dates Sig (Normalized) Sig (Original) acetaminophen 500 mg oral powder (7 sources) Start: 12-07-2023 Tylenol Extra Strength 500 mg oral powder 2 packet(s), Oral, q6h, PRN as needed for pain, # 12 packet(s), 0 Refill(s) Start Date: 12/07/23 Status: Ordered Start: 06-18-2022 take 1 tablet by cristofer th every six hours as needed for pain Acetaminophen 650 mg Tablet Active 650 mg PO EVERY 6 HOURS as needed for Pain June 18, 2022 12:00am Start: 10-10-2015 TYLENOL 8 HOUR ARTHRITIS PAIN 650 MG CR-TABS ACETAMINOPHEN [id number] Juan F Bowling Start: 10-10-2015 TYLENOL 8 HOUR ARTHRITIS PAIN 650 MG CR-TABS ACETAMINOPHEN [id number] Juan F Bowling acetaminophen 325 mg / HYDROcodone bitartrate 5 mg oral tablet (2 sources) Opioid Agonist Start: 12-09-2023 End: 12-16-2023 take 1 tablet by mouth every six hours as needed for pain Chauvin 325- 5 mg oral tablet Dose = 1 tab(s), Oral, q6h, PRN for pain, X 2 day(s), # 8 tab(s), 0 Refill(s), Acute pain, 100 Start Date: 12/12/23 Stop Date: 12/14/23 Status: Ordered acetaminophen 325 mg / oxyCODONE hydrochloride 5 mg oral tablet (13 sources) Opioid Agonist Start: 07-10-2022 take 2 tablets by mouth every four hours as needed for pain Oxycodone-Acetami nophen (Endocet) 5-325 mg tablet Active 2 {tbl} PO Q4H as needed for pain 20 7 0 July 10, 2022 Calculus of left kidney Calculus of kidney oxyCODONE-acetam inophen 5 mg-325 mg tablet ; as needed (5-325 mg) Comments: Medication taken as needed. Comment on above: Medication taken as needed. busPIRone hydrochloride 10 mg oral tablet (11 sources) Start: 12-07-2023 busPIRone 10 mg oral tablet Dose : 20 mg = 2 tab(s), Oral, BID, 0 Refill(s) Start Date: 12/07/23 Status: Ordered busPIRone 10 mg tablet ; 2 two times daily (10 mg) Calcium Carb-Mag Ox-Zinc Glu c (3 sources) Start: 06-18-2022 Calcium Carb-M ag Ox-Zinc Gluc 333-133-5 mg Tablet Active 3 {tbl} PO DAILY June 18, 2022 12:00am supplement Start: 06-18-2022 take 3 tablets by mo uth once daily Calcium Carb-Mag Ox-Zinc Gluc Active 3 TABLET PO DAILY June 17, 2022 11:00pm Start: 06-18-2022 take 3 tablets by mo uth once daily Calcium Carb-Mag Ox-Zinc Gluc Active 3 TABLET PO DAILY June 18, 2022 12:00am cefdinir 300 mg oral capsule (1 source) Cephalosporin Antibacterial Start: 12-13-2023 End: 12-18-2023 cefdinir 300 mg oral capsule Dose : 300 mg = 1 cap(s), Oral, q12h, X 5 day(s), # 10 cap(s), 0 Refill(s), 12/18/23 8:00:00 AM EDT, 100 Start Date: 12/13/23 Stop Date: 12/18/23 Status: Ordered clindamycin 300 mg oral capsule (10 sources) Lincosamide Antibacterial clindamycin HCL 300 mg capsule ; 1 four times daily (300 mg) Comments: x10 days Comment on above: x10 days cyclobenzaprine hydrochloride 10 mg oral tablet (11 sources) Muscle Relaxant Start: 12-07-2023 cyclobenzaprine 10 mg oral tablet Dose : 10 mg = 1 tab(s), Oral, qHS, PRN as needed for spasm, # 30 tab(s), 0 Refill(s) Start Date: 12/07/23 Status: Ordered diclofenac sodium 0.01 mg/mg topical gel (3 sources) Nonsteroidal Anti-inflammatory Drug Start: 06-18-2022 apply 1 g topically twice daily Diclofenac Sodium 1 % gel Active 1 g TOPICAL TWICE A DAY June 18, 2022 12:00am joint pain Start: 06-18-2022 apply 1 g topically twice aidan y Diclofenac Sodium Active 1 GM TOPICAL TWICE A DAY June 17, 2022 11:00pm doxazosin 2 mg oral tablet (20 sources) alpha-Adrenergic Maxwell Start: 12-07-2023 doxaz osin 2 mg oral tablet Dose : 2 mg = 1 tab(s), Oral, qHS, # 30 tab(s), 0 Refill(s) Start Date: 12/07/23 Status: Ordered Start: 12-07-2023 doxazosin 1 mg oral tablet Dose : 1 mg = 1 tab(s), Oral, qHS, # 30 tab(s), 0 Refill(s) Start Date: 12/07/23 Status: Ordered take 1 tablet by mouth at bedtim e doxazosin 1 mg tablet ; 1 at bedtime (1 mg) Comments: take with 2mg tab Comment on above: take with 2mg tab take with 1mg ferrous sulfate 325 mg oral tablet (3 sources) Start: 3 take 1 tablet by mouth twice daily Ferrous Sulfate 325 mg (65 mg iron) Tablet Active 325 mg PO TWICE A DAY June 18, 2022 12:00am supplement gabapentin 600 mg oral tablet (3 sources) Anti-epileptic Agent Start: 3 take 1 tablet by mouth three times daily Gabapentin 600 mg tablet Active 600 mg PO THREE TIMES A DAY June 18, 2022 12:00am joint pain hydrOXYzine pamoate 50 mg oral capsule (11 sources) Antihistamine Start: 4 hydrOXYzine pamoate 50 mg oral capsule Dose : 50 mg = 1 cap(s), Oral, BID, PRN for anxiety, # 40 cap(s), 0 Refill(s) Start Date: 12/07/23 Status: Ordered Comment on above: Medication taken as needed. Gjjdjuzn-Uwo-Qi-Lyco pen-Lutein (Centrum Silver Men) 300-600-300 mcg Tablet (1 source) Start: 3 take 300-600 tablets by mouth once daily Gikdcpwc-Olo-Re-Lyc open-Lutein (Centrum Silver Men) 300-600-300 mcg Tablet Active 1 TABLET PO DAILY June 18, 2022 12:00am Eb-Yay-Sbgbr-K1-Lyco pen-Lutein (Centrum Silver Men) 300-600-300 mcg Tablet (2 sources) Start: 3 Bi-Bif-Fugay-K1-Lyc open-Lutein (Centrum Silver Men) 300-600-300 mcg Tablet Active 1 {tbl} PO DAILY June 18, 2022 12:00am supplement Start: 06-18-2022 take 300-600 tablets by mouth once daily Ll-Not-Dvzkx-Y7-Ualrlxh-Pfgigr (Centrum Silver Men) 300-600-300 mcg Tablet Active 1 TABLET PO DAILY June 17, 2022 11:00pm pantoprazole 20 mg delayed release oral tablet (14 sources) Proton Pump Inhibitor Start: 06-18-2022 take 1 tablet by mouth once daily Pantoprazole 20 mg tablet,delayed release (DR/EC) Active 20 mg PO DAILY June 18, 2022 12:00am GERD prazosin 2 mg oral capsule (6 sources) alpha-Adrenergic Maxwell Start: 06-18-2022 take 1 capsule by mouth at bedtime Prazosin 2 mg capsule Active 2 mg PO AT BEDTIME June 18, 2022 12:00am nightmares Start: 10-10-2015 PRAZOSIN HCL 5 MG CAPS PRAZOSIN HCL [id number] Juan F Bowling pregabalin 150 mg oral capsule (11 sources) Start: 12-07-2023 pregabalin 150 mg oral capsule Dose : 150 mg = 1 cap(s), Oral, TID, # 180 cap(s), 0 Refill(s) Start Date: 12/07/23 Status: Ordered risperiDONE 1 mg oral tablet (10 sources) Atypical Antipsychotic risperiDO NE 1 mg tablet ; at bedtime (1 mg) rOPINIRole 1 mg oral tablet (14 sources) Nonergot Dopamine Agonist Start: 12-07-2023 rOPINIRole 1 mg oral tablet Dose : 1 mg = 1 tab(s), Oral, qHS, # 270 tab(s), 0 Refill(s) Start Date: 12/07/23 Status: Ordered Start: 10-10-2015 ROPINIROLE HCL 2 MG TABS ROPINIROLE HCL [id number] Juan F Bowling traMADol hydrochloride 50 mg oral tablet (3 sources) Opioid Agonist Start: 06-18-2022 take 2 tablets by mouth three times daily Tramadol 50 mg tablet Active 100 mg PO THREE TIMES A DAY June 18, 2022 12:00am pain Start: 06-18-2022 take 100 mg by mouth three times daily Tramadol Active 100 MG PO THREE TIMES A DAY June 17, 2022 11:00pm 24 hr venlafaxine 150 mg extended release oral capsule (17 sources) Serotonin and Norepinephrine Reuptake Inhibitor Start: 12-07-2023 venlafaxine 150 mg oral capsule, extended release Dose : 150 mg = 1 cap(s), Oral, BIDM, 0 Refill(s) Start Date: 12/07/23 Status: Ordered Start: 06-18-2022 take 1 capsule by [facility] once daily Venlafaxine (Effexor Xr) 75 mg Capsule,Extended Release 24hr Active 225 mg PO DAILY June 18, 2022 12:00am anxiety Start: 10-10-2015 EFFEXOR XR 150 MG [id number] VENLAFAXINE HCL [id number] Juan F Bowling Start: 10-10-2015 EFFEXOR XR 150 MG [id number]-BUF VENLAFAXINE HCL [id number] Juan F Bowling venlafaxine ER 1 50 mg capsule,extended release 24 hr ; 2 daily (150 mg) zolpidem tartrate 10 mg oral tablet (4 sources) gamma-Aminobutyric Acid-ergic Agonist Start: 06-18-2022 zolpidem 10 mg oral tablet Dose : 10 mg = 1 tab(s), Oral, qHS, PRN for sleep, 0 Refill(s) Start Date: 12/07/23 Status: Ordered Completed/Discontinued Medications Medication Drug Class(es) Dates Sig (Normalized) Sig (Original) clonazePAM 0.5 mg oral tablet (3 sources) Benzodiazepine Start: 10-10-2015 KLONOPIN 0.5 MG TABS CLONAZEPAM [id number] Juan F Bowling omeprazole 20 mg delayed release oral capsule (3 sources) Proton Pump Inhibitor Start: 10-10-2015 OMEPRAZOLE MAGNESIUM 20.6 (20 Base) MG CPDR OMEPRAZOLE MAGNESIUM [id number] Juan F Bowling traZODone hydrochloride 150 mg oral tablet (3 sources) Serotonin Reuptake Inhibitor Start: 10-10-2015 TRAZODONE HCL 150 MG TABS TRAZODONE HCL [id number] Juan F Bowling Problems Active Problems Problem Classification Problem Date Documented Date Episodic/Chronic Anxiety disorders (20 sources) Anxiety; Translations: [Anxiety disorder, unspecified] 07-19-2024 Chronic Calculus of urinary tract (4 sources) Kidney stone; Translations: [Calculus of kidney] 06-25-2022 Episodic Deficiency and other anemia (1 source) Iron deficiency anemia secondary to blood loss (chronic); Translations: [Iron deficiency anemia secondary to blood loss (chronic)] Onset: 05-10-2024 Chronic Esophageal disorders (20 sources) Gastroesophageal reflux disease; Translations: [Gastro-esophageal reflux disease without esophagitis] 07-19-2024 Chronic Essential hypertension (20 sources) Hypertensive disorder; Translations: [Essential (primary) hypertension] Onset: 05-10-2024 07-19-2024 Chronic Mood disorders (20 sources) Recurrent major depression in partial remission; Translations: [Major depressive disorder, recurrent, in partial remission] 07-19-2024 Chronic Osteoarthritis (20 sources) Bilateral osteoarthritis of knees; Translations: [Bilateral primary osteoarthritis of knee] 07-19-2024 Chronic Other hereditary and degenerative nervous system conditions (20 sources) Restless legs; Translations: [Restless legs syndrome] 07-19-2024 Chronic Pleurisy; pneumothorax; pulmonary collapse (2 sources) Pleural effusion; Translations: [Pleural effusion, not elsewhere classified] Onset: 12-10-2023 Episodic Pneumonia (except that caused by tuberculosis or sexually transmitted disease) (2 sources) Pneumonia; Translations: [Pneumonia, unspecified organism] Onset: 12-10-2023 Episodic Residual codes; unclassified (1 source) Sleep apnea; Translations: [Sleep apnea, unspecified] Onset: 12-09-2023 Chronic Residual codes; unclassified (1 source) Tobacco user; Translations: [Tobacco use] Onset: 12-09-2023 Episodic Residual codes; unclassified (1 source) Past history of procedure; Translations: [Other specified postprocedural states] Onset: 12-10-2023 Episodic Residual codes; unclassified (1 source) Pain; Translations: [Pain, unspecified] Onset: 12-12-2023 Episodic Residual codes; unclassified (1 source) H/O Spinal surgery 12-10-2023 Episodic Respiratory failure; insufficiency; arrest (adult) (2 sources) Acute respiratory failure; Translations: [Acute respiratory failure with hypoxia] Onset: 12-10-2023 Episodic Spondylosis; intervertebral disc disorders; other back problems (20 sources) Degeneration of intervertebral disc; Translations: [Dorsopathy, unspecified] 07-19-2024 Episodic Unclassified (10 sources) Follow up for multiple chronic conditions - The patient is here for follow-up of anxiety, depression, GERD, hypertension and other condition(s) (PTSD). The patient always takes the prescribed medications. No side effects noted. The patient has an active lifestyle but no regular exercise program. The patient's out of office blood pressure checks occur frequently and dietary compliance is fairly good usually adhering to recommendations. The patient states that there is no recent angina or dyspnea, there are no vision changes or weakness, pain is generally stable (Patient has chronic pain related to osteoarthritis in his knees and spine. [facility] in general mood has improved (Patient reports good control of his symptoms with his current medications. He sees a psychiatric provider through the [facility] for management of PTSD, anxiety, and depression.) and they do not have headaches. The patient states that the disease has mild emotional impact, no impact on relationships and mild physical impact. Psychiatrist with [facility]. Note for Multiple chronic conditions follow-up: Patient is here to establish care today, voices no concerns at this time.Patient also has a history of hypertension, restless leg syndrome, and GERD all managed by his primary team at the [facility]. 07-19-2024 Unclassified (5 sources) Number of Children 10-04-2024 Comment on above: 3. Past or Other Problems Problem Classification Problem Date Documented Da te Episodic/Chronic Other bone disease and musculoskeletal deformities (3 sources) Chondromalacia; Translations: [Chondromalacia, unspecified knee] Onset: 10-10-2015 10-18-2015 Episodic Other connective tissue disease (3 sources) Lateral epicondylitis; Translations: [Lateral epicondylitis, unspecified elbow] Onset: 12-05-2015 12-14-2015 Episodic Other non-traumatic joint disorders (5 sources) Pain in elbow; Translations: [Knee pain] Onset: 10-10-2015 12-14-2015 Episodic Other non-traumatic joint disorders (1 source) Knee pain; Translations: [Pain in unspecified knee] Onset: 10-10-2015 10-10-2015 Episodic Other screening for suspected conditions (not mental disorders or infectious disease) (19 sources) Patient encounter status; Translations: [Encounter for screening for diabetes mellitus] Onset: 05-10-2024 10-31-2024 Episodic Unclassified (5 sources) Pre-operative clearance - Surgical procedure(s) planned: other (left knee arthroscopic medial meniscectomy). Date of procedure: (10/27/2024) Surgeon: (Ramy A. Jan, M.D) and Location of procedure: ([facility]) There have been no problems with general anesthesia or blood/blood products. Prosthetics include eye glasses and other (hearing aids). Note for Pre-operative clearance: Patient reports that he is feeling well at this time. He does not have any concerns at this time. 10-04-2024 NEGATED: Highlighted row has been ruled out!Unclassified (2 sources) No Problem Information Available Results Test Name Value Interpretation Reference Range Facility CBC (INCLUDES DIFF/PLT)on Basophils (Bld) [#/Vol] 0.08 10*3/uL Normal 0-200 [facility] Comment on above: Performed By: #### 1 023, 0, 6399 #### [facility] of [place] [address] [employer]ylon Machine Operator: Tyree Marcelo MD Basophils/100 WBC (Bld) 1.6 % Normal [facility] Comment on above: Performed By: #### 1 023, 7599, 6399 #### [facility] [place] [address] [employer] Machine Operator: Tyree Marcelo MD Eosinophils (Bld) [#/Vol] 0.25 10*3/uL Normal 15-500 [facility] Comment on above: Performed By: #### 1 023, 7599, 6399 #### [facility] [place] [address] [employer] Machine Operator: Tyree Marcelo MD Eosinophils/100 WBC (Bld) 5.0 % Normal [facility] Comment on above: Performed By: #### 1 023, 7599, 6399 #### [facility] [place] [address] [employer] Machine Operator: Tyree Marcelo MD Erythrocyte distribution width (RBC) [Ratio] 13.1 % Normal 11.0-15.0 [facility] Comment on above: Performed By: #### 1 023, 7599, 6399 #### [facility] [place] [address] [employer] Machine Operator: Tyree Marcelo MD Hematocrit (Bld) [Volume fraction] 40.6 % Normal 38.5-50.0 [facility] Comment on above: Performed By: #### 1 230, 7599, 6399 #### [facility] of [place] [address] [employer] Machine Operator: Tyree Marcelo MD Hemoglobin (Bld) [Mass/Vol] 13.2 g/dL Normal 13.2-17.1 [facility] Comment on above: Performed By: #### 1 023, 7599, 6399 #### [facility] [place] [address] [employer] Machine Operator: Tyree Marcelo MD Lymphocytes (Bld) [#/Vol] 2.225 10*3/uL Normal 850-3900 [facility] Comment on above: Performed By: #### 1 230, 7599, 6399 #### [facility] [place] [address] [employer] Machine Operator: Tyree Marcelo MD Lymphocytes/100 WBC (Bld) 44.5 % Normal [facility] Comment on above: Performed By: #### 1 230, 7599, 6399 #### [facility] [place] [address] [employer] Machine Operator: Tyree Marcelo MD MCH (RBC) [Entitic mass] 29.1 pg Normal 27.0-33.0 [facility] Comment on above: Performed By: #### 1 230, 7599, 6399 #### [facility] [place] [address] [employer] Machine Operator: Tyree Marcelo MD MCHC (RBC) [Mass/Vol] 32.5 g/dL Normal 32.0-36.[address] [facility] Comment on above: Result Comment: For adults, a slight decrease in the calculated MCHC value (in the range of 30 to 32 g/dL) is most likely not clinically significant; however, it should be interpreted with caution in correlation with other red cell parameters and the patient's clinical condition. Performed By: #### 1 023, 7599, 6399 #### [facility] of [address], [address] [place] [address] Nylon Machine Operator: Tyree Marcelo MD MCV (RBC) [Entitic vol] 89.4 fL Normal 80.0-100.0 [facility] Comment on above: Performed By: #### 1 0231, 0, 6399 #### [facility] of [address], [address] [place] [address] Nylon Machine Operator: Tyree Marcelo MD Monocytes (Bld) [#/Vol] 0.665 10*3/uL Normal 200-950 [facility] Comment on above: Performed By: #### 1 0231, 7599, 6399 #### [facility] [place] [address] [employer] Machine Operator: Tyree Marcelo MD Monocytes/100 WBC (Bld) 13.3 % Normal [facility] Comment on above: Performed By: #### 1 023, 7599, 6399 #### [facility] of [address], [address] [place] [address] Nylon Machine Operator: Tyree Marcelo MD Neutrophils (Bld) [#/Vol] 1.78 10*3/uL Normal 2766-0620 [facility] Comment on above: Performed By: #### 1 0231, 7599, 6399 #### [facility] [place] [address] [employer] Machine Operator: Tyree Marcelo MD Neutrophils/100 WBC (Bld) 35.6 % Normal [facility] Comment on above: Performed By: #### 1 0231, 0, 6399 #### [facility] [place] [address] [employer]ylon Machine Operator: Tyree Marcelo MD Platelet mean volume (Bld) [Entitic vol] 10.1 fL Normal 7.5-12.5 [facility] Comment on above: Performed By: #### 1 0231, 0, 6399 #### [facility] of [address] [place] [address] Nylon Machine Operator: Tyree Marcelo MD Platelets (Bld) [#/Vol] 303 10*3/uL Normal 140-400 [facility] Comment on above: Performed By: #### 1 0231, 7600, 6399 #### [facility] of [address], [address] [place] [address] Nylon Machine Operator: Tyree Marcelo MD RBC (Bld) [#/Vol] 4.54 10*6/uL Normal 4.20-5.80 [facility] Comment on above: Performed By: #### 1 0231, 7600, 6399 #### [facility] of [address], [address] [place] [address] Nylon Machine Operator: Tyree Marcelo MD WBC (Bld) [#/Vol] 5.0 10*3/uL Normal 3.8-10.8 [facility] Comment on above: Performed By: #### 1 0231, 0, 6399 #### [facility] of [address], [address] [place] [address] Nylon Machine Operator: Tyree Marcelo MD [facility] 01-11-2025 Albumin [Mass/Vol] 4.6 g/dL Normal 3.6-5.1 [facility] Comment on above: Performed By: #### 1 0231, 7600, 6399 #### [facility] of [place] [address] [employer] Machine Operator: Tyree Marcelo MD Albumin/Globulin [Mass ratio] 2.2 {ratio} Normal 1.0-2.5 [facility] Comment on above: Performed By: #### 1 0231, 7600, 6399 #### [facility] of [place] [address] [employer]ylon Machine Operator: Tyree Marcelo MD ALP [Catalytic activity/Vol] 85 U/L Normal 35-144 [facility] Comment on above: Performed By: #### 1 0231, 7600, 6399 #### [facility] of [address], [address] [place] [address] Nylon Machine Operator: Tyree Marcelo MD ALT [Catalytic activity/Vol] 29 U/L Normal 9-46 [facility] Comment on above: Performed By: #### 1 0231, 7599, 6399 #### [facility] of [address], [address] [place] [address] Nylon Machine Operator: Tyree Marcelo MD AST [Catalytic activity/Vol] 21 U/L Normal 10-35 [facility] Comment on above: Performed By: #### 1 0231, 7599, 6399 #### [facility] of [address], [address] [place] [address] [employer]ylon Machine Operator: Tyree Marcelo MD Bilirubin [Mass/Vol] 0.3 mg/dL Normal 0.2-1.2 [facility] Comment on above: Performed By: #### 1 023, 7599, 6399 #### [facility] of [address], [address] [place] [address] [employer]ylon Machine Operator: Tyree Marcelo MD BUN/CREATININE RATIO SEE NOTE: Normal 6-22 [facility] Comment on above: Result Comment: Not Reported: BUN and Creatinine are within reference range. Performed By: #### 1 023, 7599, 6399 #### [facility] of [address], [address] [place] [address] Nylon Machine Operator: Tyree Marcelo MD Calcium [Mass/Vol] 9.4 mg/dL Normal 8.6-10.3 [facility] Comment on above: Performed By: #### 1 023, 7599, 6399 #### [facility] of [address], [address] [place] [address] Nylon Machine Operator: Tyere Marcelo MD Chloride [Moles/Vol] 105 mmol/L Normal 98-110 [facility] Comment on above: Performed By: #### 1 023, 760, 6399 #### [facility] of [address], [address] [place] [address] Nylon Machine Operator: Tyree Marcelo MD CO2 [Moles/Vol] 29 mmol/L Normal 20-32 [facility] Comment on above: Performed By: #### 1 023, 7599, 6399 #### [facility] of [place] [address] Nylon Machine Operator: Tyree Marcelo MD Creatinine [Mass/Vol] 0.98 mg/dL Normal 0.70-1.[address] [facility] Comment on above: Performed By: #### 1 023, 7599, 6399 #### [facility] of [address], [address] [place] [address] Nylon Machine Operator: Tyree Marcelo MD GFR/1.73 sq M.predicted among non-blacks MDRD (S/P/Bld) [Vol rate/Area] 91 mL/min/{1.73_m2} Normal > OR = 60 [facility] Comment on above: Performed By: #### 1 230, 7599, 6399 #### [facility] of [address], [address] [place] [address] Nylon Machine Operator: Tyree Marcelo MD Globulin (S) [Mass/Vol] 2.1 g/dL Normal 1.9-3.7 [facility] Comment on above: Performed By: #### 1 023, 7599, 6399 #### [facility] [place] [address] Nylon Machine Operator: Tyree Marcelo MD Glucose [Mass/Vol] 93 mg/dL Normal 65-99 [facility] Comment on above: Result Comment: Fasting reference interval Performed By: #### 1 0231, 7599, 6399 #### [facility] of [address], [address] [place] [address] Nylon Machine Operator: Tyree Marcelo MD Potassium [Moles/Vol] 4.9 mmol/L Normal 3.5-5.[address] [facility] Comment on above: Performed By: #### 1 023, 7599, 6399 #### [facility] of [place] [address] Nylon Machine Operator: Tyree Marcelo MD Protein [Mass/Vol] 6.7 g/dL Normal 6.1-8.1 [facility] Comment on above: Performed By: #### 1 0231, 7600, 6399 #### [facility] of [place] [address] Nylon Machine Operator: Tyree Marcelo MD Sodium [Moles/Vol] 142 mmol/L Normal 135-146 [facility] Comment on above: Performed By: #### 1 0231, 7600, 6399 #### [facility] [place] [address] Nylon Machine Operator: Tyree Marcelo MD Urea nitrogen [Mass/Vol] 10 mg/dL Normal 7-25 [facility] Comment on above: Performed By: #### 1 0231, 7600, 6399 #### [facility] [place] [address] Nylon Machine Operator: Tyree Marcelo MD LIPID PANEL, [place] [address] Cholesterol [Mass/Vol] 212 mg/dL High <200 [facility] Comment on above: Performed By: #### 1 0231, 7600, 6399 #### [facility] [place] [address] Nylon Machine Operator: Tyere Marcelo MD Cholesterol in HDL [Mass/Vol] 59 mg/dL Normal > OR = 40 [facility] Comment on above: Performed By: #### 1 0231, 7600, 6399 #### [facility] [place] [address] Nylon Machine Operator: Tyree Marcelo MD Cholesterol in LDL [Mass/Vol] 118 mg/dL High [facility] Comment on above: Result Comment: Refe rence range: <100 Desirable range <100 mg/dL for primary prevention; <70 mg/dL for patients with CHD or diabetic patients with > or = 2 CHD risk factors. LDL-C is now calculated using the Sue calculation, which is a validated novel method providing better accuracy than the Friedewald equation in the estimation of LDL-C. Sergio RON et al. DANDRE. 2013;310(19): 3153-7624 (http://education.The Poshpacker.Kinvey/faq/KKC185) Performed By: #### 1 0231, 7600, 6399 #### [facility] [address], [address] [place] [address] Nylon Machine Operator: Tyree Marcelo MD Cholesterol.total/Chol esterol in HDL [Mass ratio] 3.6 {ratio} Normal <5.0 [facility] Comment on above: Performed By: #### 1 0231, 7600, 6399 #### [facility] [address], [address] [place] [address] Nylon Machine Operator: Tyree Marcelo MD NON HDL CHOLESTEROL 153 mg/dL (calc) High <130 [facility] Comment on above: Result Comment: For patients with diabetes plus 1 major ASCVD risk factor, treating to a non-HDL-C goal of <100 mg/dL (LDL-C of <70 mg/dL) is considered a therapeutic option. Performed By: #### 1 0231, 7600, 6399 #### [facility] [address], [address] [place] [address] Nylon Machine Operator: Tyree Marcelo MD Triglyceride [Mass/Vol] 228 mg/dL High <150 [facility] Comment on above: Result Comment: If a non-fasting specimen was collected, consider repeat triglyceride testing on a fasting specimen if clinically indicated. Solomon et al. J. of Clin. Lipidol. 2015;9:129-169. Performed By: #### 1 0231, 7600, 6399 #### [facility] [address], [address] [place] [address] Nylon Machine Operator: Tyree Marcelo MD PSA, TOTALon 01-11-2025 PSA, TOTAL 0.26 ng/mL Normal < OR = 4.00 [facility] Comment on above: Result Comment: The total PSA value from this assay system is standardized against the WHO standard. The test result will be approximately 20% lower when compared to the equimolar-standardized total PSA (Ursula Hugoton). Comparison of serial PSA results should be interpreted with this fact in mind. This test was performed using the Siemens chemiluminescent method. Values obtained from different assay methods cannot be used interchangeably. PSA levels, regardless of value, should not be interpreted as absolute evidence of the presence or absence of disease. Performed By: #### 1 0231, 3320, 6399 #### [facility] [address], [address] [place] [address] Nylon Machine Operator: Tyree Marcelo MD Absolute lymphocyte countOrd ered By: Julia Romero on 10-21-2024 Lymphocytes Auto (Unsp spec) [#/Vol] 2.22 10*3/uL 0.83-4.51 [facility] Absolute neutrophil countOrd ered By: Julia Romero on 10-21-2024 Neutrophils (Bld) [#/Vol] 1.9 10*3/uL Low 2.0-7.7 [facility] Anion gap in Serum or Plasma Ordered By: Julia Romero on 10-21-2024 Anion gap [Moles/Vol] 11 mmol/L 5-15 [facility] Automated lymphocyte count a s percentage of total leukocytesOrdered By: Julia Romero on 10-21-2024 Lymphocytes/100 WBC Auto (Unsp spec) 42.3 % High 19-41 [facility] BUN/creatinine ratioOrdered By: Julia Romero on 10-21-2024 Urea nitrogen/Creatinine [Mass ratio] 10.4 mg/mg 10- [facility] Basic Metabolic Profile (BMP )on 10-21-2024 BUN/CRE 10.4 RATIO Normal -20 [facility] Comment on above: Performed By: #### L 100.0100, L500.2500 #### [facility] [address] [place], [address] Calcium [Mass/Vol] 8.8 mg/dL Normal 7.6-11.0 [facility] Comment on above: Performed By: #### L 100.0100, L500.2500 #### [facility] [address] [place], [address] Chloride [Moles/Vol] 102 mmol/L Normal 98-108 [facility] Comment on above: Performed By: #### L 100.0100, L500.2500 #### [facility] [address] [place], [address] CO2 [Moles/Vol] 24.5 mmol/L Normal 21.0-32.0 [facility] Comment on above: Performed By: #### L 100.0100, L500.2500 #### [facility] [address] [place], [address] Creatinine [Mass/Vol] 0.88 mg/dL Normal 0.70-1.20 [facility] Comment on above: Performed By: #### L 100.0100, L500.2500 #### [facility] [address] [place], [address] GAP 11 Normal 5-15 [facility] Comment on above: Performed By: #### L 100.0100, L500.2500 #### [facility] [address] [place], [address] GFR/1.73 sq M.predicted among non-blacks MDRD (S/P/Bld) [Vol rate/Area] 101 mL/min/{1.73_m2} Normal >60 [facility] Comment on above: Result Comment: mL/m in/1.73m2 CKD-EPI Creatinine Equation (2020) Performed By: #### L 100.0100, L500.2500 #### [facility] [address] [place], [address] Glucose [Mass/Vol] 106 mg/dL High 70-99 [facility] Comment on above: Performed By: #### L 100.0100, L500.2500 #### [facility] [address] [place], [address] Potassium [Moles/Vol] 3.9 mmol/L Normal 3.3-5.1 [facility] Comment on above: Performed By: #### L 100.0100, L500.2500 #### [facility] [address] [place], [address] Sodium [Moles/Vol] 138 mmol/L Normal 133-145 [facility] Comment on above: Performed By: #### L 100.0100, L500.2500 #### [facility] [address] [place], [address] Urea nitrogen [Mass/Vol] 9 mg/dL Normal 4-19 [facility] Comment on above: Performed By: #### L 100.0100, L500.2500 #### [facility] [address] [place], [address] Basophil percentageOrdered B y: Julia Romero on 10-21-2024 Basophils/100 WBC (Bld) 1.5 % High 0-1 [facility] CBC W/Diff, Automatedon 09-28 Absolute Lymph 2.22 X10 3/uL Normal 0.83-4.51 [facility] Comment on above: Performed By: #### L 100.0100, L500.2500 #### [facility] [address] [place], [address] Absolute Neut 1.9 X10 3/uL Low 2.0-7.7 [facility] Comment on above: Performed By: #### L 100.0100, L500.2500 #### [facility] [address] [place], [address] Basophils/100 WBC (Bld) 1.5 % High 0-1 [facility] Comment on above: Performed By: #### L 100.0100, L500.2500 #### [facility] [address] [place], [address] Eosinophils/100 WBC (Bld) 4.6 % Normal 0-5 [facility] Comment on above: Performed By: #### L 100.0100, L500.2500 #### [facility] [address] [place], [address] Erythrocyte distribution width (RBC) [Ratio] 13.9 % Normal 11.6-14.6 [facility] Comment on above: Performed By: #### L 100.0100, L500.2500 #### [facility] [address] [place], [address] Hematocrit (Bld) [Volume fraction] 40.5 % Normal 40-54 [facility] Comment on above: Performed By: #### L 100.0100, L500.2500 #### [facility] [address] [place], [address] Hemoglobin (Bld) [Mass/Vol] 13.4 g/dL Normal 13.0-16.5 [facility] Comment on above: Performed By: #### L 100.0100, L500.2500 #### [facility] [address] [place], [address] IG% 0.400 Normal 0.0-0.9 [facility] Comment on above: Result Comment: IG% - Immature Granulocytes (promyelocytes, myelocytes and metamyelocytes) > 1% indicates that a LEFT SHIFT is Present. Performed By: #### L 100.0100, L500.2500 #### [facility] [address] [place] [place], [address] Lymphocytes/100 WBC (Bld) 42.3 % High 19-41 [facility] Comment on above: Performed By: #### L 100.0100, L500.2500 #### [facility] [address] [place], [address] MCH (RBC) [Entitic mass] 29.7 pg Normal 27.0-32.0 [facility] Comment on above: Performed By: #### L 100.0100, L500.2500 #### [facility] [address] [place], [address] MCHC (RBC) [Mass/Vol] 33.1 g/dL Normal 32-36 [facility] Comment on above: Performed By: #### L 100.0100, L500.2500 #### [facility] [address] [place], [address] MCV (RBC) [Entitic vol] 89.8 fL Normal 80-94 [facility] Comment on above: Performed By: #### L 100.0100, L500.2500 #### [facility] [address] [place], [address] Monocytes/100 WBC (Bld) 15.4 % High 0-10 [facility] Comment on above: Performed By: #### L 100.0100, L500.2500 #### [facility] [address] [place], [address] Neutrophils/100 WBC (Bld) 35.8 % Low 47-70 [facility] Comment on above: Performed By: #### L 100.0100, L500.2500 #### [facility] [address] [place], [address] Nucleated RBC (Bld) [#/Vol] 0 10*3/uL Normal 0-5 [facility] Comment on above: Performed By: #### L 100.0100, L500.2500 #### [facility] [address] [place], [address] Platelet mean volume (Bld) [Entitic vol] 10.0 fL Normal 6.2-12.0 [facility] Comment on above: Performed By: #### L 100.0100, L500.2500 #### [facility] [address] [place], [address] Platelets (Bld) [#/Vol] 288 10*3/uL Normal 150-450 [facility] Comment on above: Performed By: #### L 100.0100, L500.2500 #### [facility] [address] [place], [address] RBC (Bld) [#/Vol] 4.51 10*6/uL Low 4.6-6.2 [facility] Comment on above: Performed By: #### L 100.0100, L500.2500 #### [facility] [address] [place], [address] RDW SD 45.5 fl High 35.1-43.9 [facility] Comment on above: Performed By: #### L 100.0100, L500.2500 #### [facility] [address] [place], [address] WBC (Bld) [#/Vol] 5.3 10*3/uL Normal 4.4-11.0 [facility] Comment on above: Performed By: #### L 100.0100, L500.2500 #### [facility] [address] [place], [address] Carbon dioxide, total [Moles /volume] in Central venous bloodOrdered By: Julia Romero on 10-21-2024 CO2 [Moles/Vol] 24.5 mmol/L 21.0-32.0 [facility] Chloride assayOrdered By: Nino Romero on 10-21-2024 Chloride [Moles/Vol] 102 mmol/L 98-108 [facility] Eosinophil percentageOrdered By: Julia Romero on 10-21-2024 Eosinophils/100 WBC (Bld) 4.6 % 0-5 [facility] Erythrocyte distribution wid th ratioOrdered By: Julia Romero on 10-21-2024 Erythrocyte distribution width (RBC) [Ratio] 13.9 % 11.6-14.6 [facility] Erythrocyte distribution wid th standard deviationOrdered By: Julia Romero on 10-21-2024 Erythrocyte distribution width (RBC) [Ratio] 45.5 fl High 35.1-43.9 [facility] Glomerular filtration rate ( GFR) estimation/1.73 sq m using serum, plasma, or whole bOrdered By: Julia Romero on 10-21-2024 GFR/1.73 sq M.predicted among non-blacks MDRD (S/P/Bld) [Vol rate/Area] 101 mL/min/{1.73_m2} >60 [facility] Comment on above: mL/min/1.73m2 CKD-EP I Creatinine Equation (2020) Hematocrit Auto (Bld) [Volum e fraction]Ordered By: Julia Romero on 10-21-2024 Hematocrit (Bld) [Volume fraction] 40.5 % 40-54 [facility] Hemoglobin measurementOrdere d By: Julia Romero on 10-21-2024 Hemoglobin (Bld) [Mass/Vol] 13.4 g/dL 13.0-16.5 [facility] Immature granulocytes/100 WB C Auto (Bld)Ordered By: Julia Romero on 10-21-2024 Immature granulocytes/100 WBC (Bld) 0.400 % 0.0-0.9 [facility] Comment on above: IG% - Immature Granu locytes (promyelocytes, myelocytes and metamyelocytes) > 1% indicates that a LEFT SHIFT is Present. MCV (mean corpuscular volume ) determinationOrdered By: Julia Romero on 10-21-2024 MCV (RBC) [Entitic vol] 89.8 fL 80-94 [facility] Mean corpuscular hemoglobin (MCH) determinationOrdered By: Julia Romero on 10-21-2024 MCH (RBC) [Entitic mass] 29.7 pg 27.0-32.0 [facility] Mean corpuscular hemoglobin concentration (MCHC) determinationOrdered By: Julia Romero on 10-21-2024 MCHC (RBC) [Mass/Vol] 33.1 g/dL 32-36 [facility] Mean platelet volume determi nationOrdered By: Julia Romero on 10-21-2024 Platelet mean volume (Bld) [Entitic vol] 10.0 fL 6.2-12.0 [facility] Monocyte percentageOrdered B y: Julia Romero on 10-21-2024 Monocytes/100 WBC (Bld) 15.4 % High 0-10 [facility] Neutrophil percentageOrdered By: Julia Romero on 10-21-2024 Neutrophils/100 WBC (Bld) 35.8 % Low 47-70 [facility] Nucleated red blood cell per centageOrdered By: Julia Romero on 10-21-2024 Nucleated RBC/100 WBC (Bld) [Ratio] 0 % 0-5 [facility] Platelet countOrdered By: Nino Romero on 10-21-2024 Platelets (Bld) [#/Vol] 288 10*3/uL 150-450 [facility] Potassium measurement (mass/ volume)Ordered By: Julia Romero on 10-21-2024 Potassium (Unsp spec) [Mass/Vol] 3.9 mmol/L 3.3-5.1 [facility] RBC Auto (Bld) [#/Vol]Ordere d By: Julia Romero on 10-21-2024 RBC (Bld) [#/Vol] 4.51 10*6/uL Low 4.6-6.2 [facility] Serum creatinine measurement (mass/volume)Ordered By: Julia Romero on 10-21-2024 Creatinine [Mass/Vol] 0.88 mg/dL 0.70-1.20 [facility] Serum glucose measurement (m ass/volume)Ordered By: Julia Romero on 10-21-2024 Glucose [Mass/Vol] 106 mg/dL High 70-99 [facility] Serum or plasma calcium hemalatha urement (mass/volume)Ordered By: Julia Romero on 10-21-2024 Calcium [Mass/Vol] 8.8 mg/dL 7.6-11.0 [facility] Serum or plasma urea nitroge n measurement (mass/volume)Ordered By: Julia Romero on 10-21-2024 Urea nitrogen [Mass/Vol] 9 mg/dL 4-19 [facility] Sodium levelOrdered By: Odalis Romero on 10-21-2024 Sodium [Moles/Vol] 138 mmol/L 133-145 [facility] White blood cell (WBC) count Ordered By: Julia Romero on 10-21-2024 WBC (Bld) [#/Vol] 5.3 10*3/uL 4.4-11.0 [facility] MR KNEE W/O LTon 09-19-2024 MR KNEE W/O [place] [address] Patient: MICHAEL PARIKH Phone#: : 1970 Age: 54 Gender: M Pt. Type: Out Account: [id number] Location: 052 Ordering: RAMY RajeshBrandie MONTOYA Exam Date: 09/19/2024/12:08 Family Phys: SUNITHA RODRIGUEZ Charge Code: [id number] Physician: Cannon Order #: [id number] Dose#: PROCEDURE: MRI KNEE LT WITHOUT CONTRAST COMPARISON: [facility], MR, KNEE LT W/O CON, 10/14/2021, 8:23. INDICATIONS: Left knee sprain TECHNIQUE: A complete multi-planar MRI was performed. FINDINGS: MEDIAL COMPARTMENT MEDIAL MENISCUS: Complex tear of the medial/posterior body of the medial meniscus. HYALINE CARTILAGE: Normal. No visible defect. BONES: Normal. No marrow pathology, fracture, or significant arthropathy. MCL AND MEDIAL CAPSULE: Normal medial collateral ligament and medial capsule. LATERAL COMPARTMENT LATERAL MENISCUS: Normal. No visible tear or significant degeneration. HYALINE CARTILAGE: Normal. No visible defect. BONES: Normal. No marrow pathology, fracture, or significant arthropathy. LCL/POSTEROLAT. COMPLEX: Normal lateral collateral ligament, fascicles, lateral capsule and ligaments. ACL: Normal appearing ligament. PCL: Normal appearing ligament. MENISCOFEMORAL: Normal meniscofemoral ligaments. PATELLOFEMORAL: There is narrowing the lateral patellofemoral joint. Mildly signal the articular cartilage is consistent with chondromalacia. There is fraying the articular cartilage EFFUSION: None. No synovitis or loose bodies. OTHER: Negative. CONCLUSION: 1. Complex tear the medial/posterior medial meniscal body. Appearance is similar to prior exam. 2. Findings consistent with chondromalacia patella. Dictated by: Vashti Branham MD on 09/23/2024 at 16:42 Continued Report - Page 2 of 2 Patient: MICHAEL PARIKH Phone#: : 1970 Age: 54 Gender: M Pt. Type: Out Account: [id number] Location: 052 Ordering: RAMY MONTOYA Exam Date: 09/19/2024/12:08 Family Phys: SUNITHAABEBA RODRIGUEZ Charge Code: [id number] Physician: Cannon Order #: [id number] Dose#: Approved by: Vashti Branham MD on 09/23/2024 at 16:52 Normal [facility] MR KNEE WO RTon 09-19-2024 MR KNEE WO RT [facility] [address] [place], [place] [address] Patient: MICHAEL PARIKH [place] Phone#: : 1970 Age: 54 Gender: M Pt. Type: Out Account: [id number] Location: 052 Ordering: RAMY MONTOYA Exam Date: 09/19/2024/12:08 Family Phys: SUNITHA BEAN Charge Code: [id number] Physician: Cannon Order #: [id number] Dose#: PROCEDURE: MRI KNEE RT WITHOUT CONTRAST COMPARISON: [facility], , KNEE RT W/O CON, 05/20/2018, 19:26. INDICATIONS: Right knee sprain TECHNIQUE: A complete multi-planar MRI was performed. FINDINGS: MEDIAL COMPARTMENT MEDIAL MENISCUS: Normal. No visible tear or significant degeneration. HYALINE CARTILAGE: Normal. No visible defect. BONES: Normal. No marrow pathology, fracture, or significant arthropathy. MCL AND MEDIAL CAPSULE: There is thickening of the posterior capsule consistent with chronic injury. LATERAL COMPARTMENT LATERAL MENISCUS: Normal. No visible tear or significant degeneration. HYALINE CARTILAGE: Normal. No visible defect. BONES: Normal. No marrow pathology, fracture, or significant arthropathy. LCL/POSTEROLAT. COMPLEX: Normal lateral collateral ligament, fascicles, lateral capsule and ligaments. ACL: Normal appearing ligament. PCL: Normal appearing ligament. MENISCOFEMORAL: Normal meniscofemoral ligaments. PATELLOFEMORAL: There is minimal lateral patellar subluxation. Mildly abnormal signal of the patellar articular cartilage consistent with chondromalacia patella. EFFUSION: None. No synovitis or loose bodies. OTHER: Negative. CONCLUSION: 1. Chronic injury of the medial posterior capsule. 2. There is no evidence of acute meniscal abnormality. 3. Anterior and posterior cruciate ligaments are intact. 4. Findings consistent with chondromalacia patella. Continued Report - Page 2 of 2 Patient: MICHAEL PARIKH Phone#: : 1970 Age: 54 Gender: M Pt. Type: Out Account: [id number] Location: 052 Ordering: RAMY RajeshBrandie JAN Exam Date: 09/19/2024/12:08 Family Phys: SUNITHA RODRIGUEZ Charge Code: [id number] Physician: Cannon Order #: [id number] Dose#: Dictated by: Vashti Branham MD on 09/23/2024 at 10:20 Approved by: Vashti Branham MD on 09/23/2024 at 10:51 Normal [facility] ED MED ADMINISTRATION DETAIL on 06-13-2024 ED MED ADMINISTRATION DETAIL Rope [employer]utter Medication Administration Record [address] [address] [id number] 06/10/2024 Patient: MICHAEL PARIKH Sex: Male : 1970 Age: 54y MEASUREMENTS: Wt: 98.0 kg, Ht/Emeka: 68.0 in, BMI: 32.84 ALLERGIES: Penicillins, Wellbutrin, amoxicillin Medication Ordered Medication Administration Date/Time IV NS 0.9 % 1000 22:06/10 IV NS 0.9 % 1000 mL started in bag#1 1000 mL at Started mL at 150 mL/hr 150 mL/hr over 1 hour(s) via Site# 1. - 22:00 Herbie Arevalo R.N. 22:00 06/10/2024 (NOW x1) Herbie Arevalo R.N. 01:40 06/11 Medication Discontinued: bag #1 completed upon Stopped discharge. Total amount infused: 1000 mL. IV patency established. 01:40 06/11/2024 IV site checked: no pain, redness, or swelling. IV flushed thoroughly Jared Sarabia post-medication administration. - 01:45 Jared Sarabia R.N. R.N. Scanned Clindamycin IVPB 22:00 06/10 Clindamycin IVPB 600mg/50ml Premix 600 mg started Started 600mg/50ml Premix at 100 mL/hr over 1 hour(s) via Site# 1. - 22:00 Herbie Arevalo 22:00 06/10/2024 600 mg at 100 R.N. Herbie Arevalo R.N. mL/hr (NOW x1) Stopped :06/11 Medication Discontinued: IV completed upon :06/11/2024 discharge. Total amount infused: 50 mL. IV patency established. IV Jared Sarabia, site checked: no pain, redness, or swelling. IV flushed thoroughly R.N. post-medication administration. - 01:45 Jared Sarabia R.N. Scanned MORPHine IVP 4 22:00 06/10 MORPHine IVP 4 mg given over 2 minute(s) via Site# Given mg (NOW x1, HIGH 1. - 22:00 Suzie ToneyN. 22:06/10/2024 ALERT Herbie Arevalo R.N. MEDICATION) Not Scanned 1 of 2 [employer] Medication Ordered Medication Administration Date/Time Ondansetron IVP 4 21:59 06/10 Ondansetron IVP 4 mg given over 2 minute(s) via Given mg (NOW x1) Site# 1. - 21:59 Suzie ToneyNBrandie 21:59 06/10/2024 Herbie Arevalo R.N. Scanned MORPHine IVP 4 00:51 06/11 MORPHine IVP 4 mg given via Site# 1. Allergies Given mg (NOW x1, HIGH verified and confirmed 5 rights. IV patency established. IV site 00:51 06/11/2024 ALERT checked: no pain, redness, or swelling. IV flushed thoroughly Jared Sarabia MEDICATION) pre-medication administration. IVP given by nurse. Information R.N. reviewed with patient including reason for taking this medication, Not Scanned signs of allergic reaction and precautions. Verbalizes understanding. - 00:51 Jared Sarabia R.N. 2 of 2 Normal [facility] ED NURSES CLINICAL NOTEon ED NURSES CLINICAL NOTE Nurse Narrative Nurse Clinical Narrative [address] [address] [id number] 06/10/2024 Patient: MICHAEL PARIKH Sex: Male : 1970 Age: 54y Primary Insurance: MEDICARE OUTPATIENT Policy Number: [id number] Subscriber: Other Secondary Insurance: [employer] Policy Number: [id number] Subscriber: Other Disposition: Discharge to Home Disposition Decision Time: 00:05 06/11/2024 Departure Time: 01:45 06/11/2024 TRIAGE Arrived by private vehicle. Historian: (patient). ( Pt c/o tooth pain.). Triage time: 20:27 06/10/2024. Acuity: LEVEL 4. Chief Complaint: DENTAL PAIN. -- 20:33 06/10/24 EDT Suzie SandersNBrandie 20:06/10/24. SEPSIS SCREEN: NEGATIVE. SIRS criteria negative. -- 20:06/10/24 EDT Suzie SandersNBrandie 20:06/10/24. BP: 131/81 MAP: 98. HR: 85. RR: 16. O2 saturation: 97% Temperature: 98.6 F. Pain level now 8/10. -- 20:33 06/10/24 EDT Giovanny Anderson R.N. Measurements: 20:06/10/24 Wt: 98.0 kg, Ht/Emeka: 68.0 in, BMI: 32.84 -- 20:31 06/10/24 EDT Giovanny Anderson R.N. Medications: ropinirole 1 mg tablet: 1 tablet every night. -- 20:35 06/10/24 EDT Giovanny Anderson R.N. 1 of 4 Nurse Narrative Allergies: amoxicillin -- 20:06/10/24 EDT Giovanny Anderson RKassie Penicillins -- 20:06/10/24 EDT Suzie SandersNBrandie Wellbutrin -- 20:06/10/24 EDT Suzie SandersN. Problems: PTSD -- 20:06/10/24 EDT Giovanny Anderson R.N. Anxiety disorder -- 20:06/10/24 EDT Suzie SandersN. Depression -- 20:06/10/24 EDT Suzie SandersN. Fibromyalgia -- 20:30 06/10/24 EDT Suzie SandersN. Restless Legs Syndrome -- 20:30 06/10/24 EDT Suzie SandersYanet Arthritis -- 20:30 14/25 DREWT Giovanny Anderson R.N. ADDITIONAL SURGERIES: Hip Surgery -- 20:06/10/24 JOYCE Anderson R.N. Cholecystectomy -- 20:06/10/24 JOYCE Anderson R.N. History 20:06/10/24. SOCIAL HX: Former smoker. Alcohol use; consumes beer occasionally. Drug use: marijuana. The patient has not traveled outside the [place] Infectious disease exposure: No infectious disease exposure. ABUSE ASSESSMENT: The patient answered yes to the question(s) Do you feel safe in your home? and no to the question(s) Are you afraid to go home?. SELF HARM ASSESSMENT: Self harm assessment was performed. The patient answered no to the question(s) Have you recently felt down, depressed, or hopeless? and Do you have thoughts of harming or killing yourself?. FALL RISK ASSESSMENT: Fall risk assessment completed. No risk factors identified. -- 20:33 06/10/24 JOYCE Anderson R.N. 2 of 4 Nurse Narrative PHYSICAL ASSESSMENT 22:06/10/24. GENERAL / NEURO / PSYCH: Alert. Oriented X 4. HEENT: ( LEFT FACIAL SWELLING THAT STARTED AFTER DINNER). RESPIRATORY: Respirations not labored. Chest nontender. Breath sounds within normal limits. CVS: Normal sinus rhythm noted. Capillary refill less than 2 seconds. Pulses within normal limits. GI / : Abdomen soft and nontender and normal bowel sounds. SKIN: Skin is warm and dry. -- 22:06/10/24 JOYCE Arevalo R.N. NURSING PROGRESS NOTES 21:06/10/24. Ondansetron IVP 4 mg given over 2 minute(s) via Site# 1. -- 21:06/10/24 JOYCE Arevalo R.N. 21:06/10/24. Site #1 started via IV in the right antecubital space with an 18g angiocath; 1 attempt. Blood drawn: rainbow set tube(s). -- 21:06/10/24 JOYCE Arevalo R.N. 22:06/10/24. MORPHine IVP 4 mg given over 2 minute(s) via Site# 1. -- 22:00 06/10/24 EDT Herbie Arevalo R.N. 22:00 06/10/24. Clindamycin IVPB 600mg/50ml Premix 600 mg started at 100 mL/hr over 1 hour(s) via Site# 1. -- 22:00 06/10/24 EDT Herbie Arevalo R.N. 22:00 06/10/24. IV NS 0.9 % 1000 mL started in bag#1 1000 mL at 150 mL/hr over 1 hour(s) via Site# 1. -- 22:00 06/10/24 EDT Herbie Arevalo R.N. 22:06 06/10/24. RESPIRATORY: No respiratory distress. Breath sounds normal. CVS: Normal sinus rhythm noted. SKIN: Skin is warm and dry. Skin color within normal limits. Two patient identifiers checked. Call light placed in reach. Side rails up x 2. Bed placed in lowest position. Brakes of bed on. Brakes of chair on. -- 22:06/10/24 EDT Herbie Arevalo R.N. 22:53 06/10/24. ( REPORT TO JARED TOLBERT SBAR FORMAT). -- 22:53 06/10/24 EDT Herbie Arevalo R.N. 23:01 06/10/24. Care transferred and report received (From Chema TOLBERT). -- 23:06 06/10/24 EDT Jared Sarabia R.N. 00:51 06/11/24. MORPHine IVP 4 mg given via Site# 1. Allergies verified and confirmed 5 rights. IV patency established. IV site checked: no pain, redness, or swelling. IV flushed thoroughly pre-medication administration. IVP given by nurse. Information reviewed with patient including reason for taking this medication, signs of allergic reaction and precautions. Verbalizes understanding. -- 00:51 06/11/24 EDT Jared Sarabia R.N. DISPOSITIO (more content not included)... Normal [facility] ED ORDER SHEET (CPOE ONLY)on 06-13-2024 ED ORDER SHEET (CPOE ONLY) Order Sheet Order Sheet [address] [place] [address] [id number] 06/10/2024 [id number] Sex[facility] Male : 1970 Age: 54y MEASUREMENTS: Wt: 98.0 kg, Ht/Emeka: 68.0 in, BMI: 32.84 ALLERGIES: Penicillins, Wellbutrin, amoxicillin MEDICATION/IV/DRIP/FLUI D ORDERS Order Description Priority Entered Acknowledged Completed IV NS 0.9 %1000 mL at 150 21:43 06/10/2024 21:52 22:00 mL/hr (NOW x1) Jason Child D.O. 06/10/2024 06/10/2024 Herbie Toney R.NBrandie R.N. Clindamycin IVPB 600mg/50ml 21:43 06/10/2024 21:52 22:00 [id number] mg at 100 mL/hr Jason Child D.O. 06/10/2024 06/10/2024 (NOW x1) Herbie Toney R.N. R.NBrandie MORPHine IVP4 mg (NOW x1, 21:43 06/10/2024 21:52 22:00 HIGH ALERT MEDICATION) Jason Child D.O. 06/10/2024 06/10/2024 Herbie Toney R.N. R.N. Ondansetron IVP4 mg (NOW x1) 21:44 06/10/2024 21:52 21:59 Jason Child D.O. 06/10/2024 06/10/2024 Herbie Toney R.N. R.NBrandie 1 of 2 Order Sheet MORPHine IVP4 mg (NOW x1, 00:30 06/11/2024 00:31 00:51 HIGH ALERT MEDICATION) Jason Child D.O. 06/11/2024 06/11/2024 David Galindo R.N. Reason for ordering with alerts: Clinical consideration given --00:30 06/11/2024 Jason Child D.O. LAB ORDERS Order Description Priority Entered Acknowledged Collected Completed CBC w Diff Stat Stat 21:43 06/10/2024 21:52 06/10/2024 21:52 06/10/2024 Hoda Perez Samuel Burgett, R.N. R.N. CMP Stat Stat 21:43 06/10/2024 21:52 06/10/2024 21:52 06/10/2024 Hoda Perez Samuel Burgett, R.N. R.N. Amylase Stat Stat 23:46 06/10/2024 00:30 06/11/2024 00:30 06/11/2024 Hoda Perez R.N. [place], R.N. DIAGNOSTIC STUDY ORDERS Order Description Priority Entered Acknowledged Completed CT Facial w Cont Stat Stat 21:43 06/10/2024 21:52 21:52 Jason Child D.O. 06/10/2024 06/10/2024 Herbie Toney R.N. R.N. Reason for Study: Facial Pain STAFF ORDERS Order Description Priority Entered Acknowledged Collected Completed [Electronically signed by Jason Child D.O. (06/13/2024 21:17 EDT)] 2 of 2 Normal [facility] ED PHYSICIAN CLINICAL REPORT on 06-13-2024 ED PHYSICIAN CLINICAL REPORT Narrative Physician Clinical Narrative [address] [address] [id number] 06/10/2024 Patient: MICHAEL PARIKH Sex: Male : 1970 Age: 54y Primary Insurance: MEDICARE OUTPATIENT Policy Number: [id number] Subscriber: Other Secondary Insurance: [employer] Policy Number: [id number] Subscriber: Other Disposition: Discharge to Home Disposition Decision Time: 00:05 06/11/2024 Departure Time: 01:45 06/11/2024 Measurements Wt: 98.0 kg, Ht/Emeka: 68.0 in, BMI: 32.84 Initial Vital Sign Measured Time BP MAP HR RR O2Sat ETCO2 Temp Pain GCS RTS 20:33 06/10/2024 131/81 98 85 16 97% 98.6 F 8 Time Seen: 21:17 06/10/2024. Arrived- By private vehicle. Historian- patient. HISTORY OF PRESENT ILLNESS Chief Complaint: DENTAL PAIN. TOOTHACHE, JAW PAIN and SWELLING OF JAW / FACE. This started yesterday and is still present (worse). No sore throat, mouth sores, ear pain or swollen face. The patient has had toothache, swelling of the jaw, jaw pain, facial pain and nasal congestion. The patient has had a nasal discharge. Similar symptoms previously. None. Recent medical care: Not recently seen/assessed. REVIEW OF SYSTEMS of 11 Narrative : No difficulty with urination. SKIN: No skin rash. MUSCULOSKELETAL: No joint pain. NEUROLOGICAL: The patient has had a headache. No fainting episodes. CONSTITUTIONAL: No fever. RESPIRATORY: No cough or difficulty breathing. CVS: No chest pain. GI: No nausea, diarrhea, abdominal pain or vomiting. ENDO/HEME/LYMPH: The patient has had enlarged lymph nodes. PAST HISTORY See nurses notes. Anxiety disorder Arthritis Depression Fibromyalgia PTSD Restless Legs Syndrome Surgeries: Cholecystectomy Hip Surgery Medications: ropinirole 1 mg tablet: 1 tablet every night. Allergies: amoxicillin Penicillins Wellbutrin SOCIAL HISTORY Heavy tobacco smoker- less than 1 pack per day. Occasional alcohol use. Drug use: marijuana. ADDITIONAL NOTES The nursing notes have been reviewed. PHYSICAL EXAM of 11 Narrative Appearance: Alert. Patient in mild distress. Head: Moderate swelling of the left mandible. No facial erythema. Eyes: Pupils equal, round and reactive to light. No conjunctival findings. ENT: Severe, extensive dental decay. Moderate dental tenderness of multiple teeth with gingival tenderness (lower left first premolar and second premolar, lower left first molar, second molar and third molar). Nose normal. Pharynx normal. Lips normal. Uvula midline. (Some swelling redness and tenderness noted to the left lower gums. No focal abscess noted.). Neck: Trachea midline. No adenopathy. Thyroid normal. Neck supple. CVS: Normal heart rate and rhythm. Heart sounds normal. Pulses normal. Respiratory: No respiratory distress. Breath sounds normal. Chest nontender. Abdomen: Soft and nontender. No organomegaly. Skin: Normal skin color. No rash. Extremities: Extremities exhibit normal ROM. Extremities nontender. Neuro: Oriented X 3. No motor deficit. No sensory deficit. (Normal speech. No slurred speech. No hot potato voice.). LABS, X-RAYS, AND EKG Laboratory Tests: CBC + DIFF Final VILMA: 06/10/2024 22:32:00 EDT MsgRcvd: 06/10/2024 23:12 EDT Lab Test Result Reference Status Received Comments 06/10/2024 23:12 CBC-COMPLETE CBC + DIFF Final EDT BLOOD COUNT 06/10/2024 23:12 WBC 6.9 x 10/UL 4.5 - 10.8 Final EDT 06/10/2024 23:12 RBC 4.77 x 10/UL 4.50 - 6.00 Final EDT 06/10/2024 23:12 HEMOGLOBIN 14.7 g/dl 13.0 - 17.5 Final EDT 06/10/2024 23:12 HEMATOCRIT 42.4 % 40.0 - 52.0 Final EDT 3 of 11 Narrative Lab Test Result Reference Status Received Comments 06/10/2024 23:12 MCV 89 fl 81 - 98 Final EDT 06/10/2024 23:12 MCH 31 pg 27 - 33 Final EDT 06/10/2024 23:12 MCHC 35 X10 3 32 - 36 Final EDT 06/10/2024 23:12 RDW/CV 13.3 % 12.0 - 15.6 Final EDT 06/10/2024 23:12 PLATELET 303 x10/UL 150 - 450 Final EDT 06/10/2024 23:12 AUTOMATED MPV 7.7 fl 6.4 - 10.5 Final EDT DIFFERENTIAL 06/10/2024 23:12 NEUT % 48.8 % 46.0 - 76.0 Final EDT 06/10/2024 23:12 LYMPH % 33.4 % 20.0 - 45.0 Final EDT 14.4 % 06/10/2024 23:12 MONOS % 0.0 - 10.0 Final Above high normal EDT 06/10/2024 23:12 EO % 3.0 % 0.0 - 7.0 Final EDT 06/10/2024 23:12 BASO % 0.4 % 0.0 - 2.0 Final EDT 06/10/2024 23:12 Lymph # 2.30 x10/UL 0.80 - 2.80 Final EDT 06/10/2024 23:12 Neut # 3.36 x10/UL 1.50 - 7.10 Final EDT 4 of 11 Narrative Lab Test Result Reference Status Received Comments 06/10/2024 23:12 Cataño # 0.99 x10/UL 0.20 - 1.00 Final EDT 06/10/2024 23:12 EO # 0.21 x10/UL 0.00 - 0.50 Final EDT 06/10/2024 23:12 Baso # 0.03 x10/UL 0.00 - 0.10 Final EDT 06/10/2024 23:12 MANUAL (more content not included)... Normal [facility] ED SUPER BILLon 06-13-2024 ED SUPER BILL [facility] [address] [address] [id number] 06/10/2024 Patient: MICHAEL PARIKH Sex: Male : 1970 Age: 54y Item Facility Professional Category Description Code Code Quantity Fee Total Nurse/E/M EMERGENCY 886146 1 $0.00 $0.00 DEPARTMENT VISIT HIGH/URGENT SEVERITY (79910-09) Nurse/IV/IM/Infusions Drip/IVPB 890320 3 $0.00 $0.00 additional hour (14321) Nurse/IV/IM/Infusions Drip/IVPB initial 739769 1 $0.00 $0.00 (06139) Nurse/IV/IM/Infusions IVP additional 587894 2 $0.00 $0.00 push (55236) Nurse/IV/IM/Infusions IVP same med 652308 1 $0.00 $0.00 (31 min apart) (33486) Grand Total $0.00 Providers Jason Child D.O. 1 of 2 [facility] Chief Complaint DENTAL PAIN. TOOTHACHE, JAW PAIN and SWELLING OF JAW / FACE. Principal Diagnosis Acute sialoadenitis (Sialoadenitis left submandibular gland without obstructing stone and without abscess.). ICD-10 Codes K11.21: Acute sialoadenitis 2 of 2 Normal [facility] ED VISIT SUMMARYon ED VISIT SUMMARY Visit Overview Visit Overview [address] [place] [address] [id number] 06/10/2024 Patient: MICHAEL PARIKH Sex: Male : 1970 Age: 54y 06/13/2024 09:17 PM EDT ED Arrival:20:25 06/10/2024 EDT Status: Recent Travel:no Language:eng Adv Directive: Isolation Status: Ethnicity:N Fall Risk:no risk Infectious Disease Exposure:no Measurements:5'8 / 172.7 Self-Harm Status:risk Sepsis Screen:negative cm 216.0 lb / 98.0 kg Chief Complaint:DENTAL PAIN and (Pt c/o tooth pain.) ALLERGIES amoxicillin Penicillins Wellbutrin HOME MEDICATIONS ropinirole 1 mg tablet: 1 tablet every night. PAST MEDICAL HISTORY / PROBLEMS Anxiety disorder 1 of 3 Visit Overview Arthritis Depression Fibromyalgia PTSD Restless Legs Syndrome See nurses notes PAST SURGICAL HISTORY Cholecystectomy Hip Surgery SOCIAL HISTORY Smoking status: No Alcohol use: Yes Drug use: Yes ED COURSE MEDICATIONS GIVEN IN EMERGENCY DEPARTMENT 21:59 06/10/24 Ondansetron IVP 4 mg over 2 minute(s) 22:00 06/10/24 MORPHine IVP 4 mg over 2 minute(s) 22:00 06/10/24 Clindamycin IVPB 600mg/50ml Premix 600 mg 100 mL/hr over 1 hour(s) 22:00 06/10/24 IV NS 0.9 % 1000 mL 150 mL/hr over 1 hour(s) 00:51 06/11/24 MORPHine IVP 4 mg IV SITE INFORMATION INTAKE OUTPUT REASSESMENT (most recent) 22:06 06/10/24. RESPIRATORY: No respiratory distress. Breath sounds normal. CVS: Normal sinus rhythm noted. SKIN: Skin is warm and dry. Skin color within normal limits. Two patient identifiers checked. Call light placed in reach. Side rails up x 2. Bed placed in lowest position. Brakes of bed on. Brakes of chair on. 2 of 3 Visit Overview VITAL SIGNS First Vitals Last Vitals Temp 20:33 06/10/24 98.6 F Temp 01:36 06/11/24 BP 20:33 06/10/24 131/81 BP 01:36 06/11/24 129/79 HR 20:33 06/10/24 85 HR 01:36 06/11/24 71 RR 20:33 06/10/24 16 RR 01:36 06/11/24 16 O2 Sat 20:33 06/10/24 97% O2 Sat 01:36 06/11/24 97% Pain 20:33 06/10/24 8 Pain 01:36 06/11/24 2 ETCO2 20:33 06/10/24 ETCO2 01:36 06/11/24 GCS 20:33 06/10/24 GCS 01:36 06/11/24 RTS 20:33 06/10/24 RTS 01:36 06/11/24 PROCEDURES NURSING INTERVENTIONS LABS / STUDIES LABS / STUDIES ORDERED Amylase CBC w Diff CMP CT Facial w Cont CLINICAL IMPRESSION ACUTE SIALOADENITIS (SIALOADENITIS LEFT SUBMANDIBULAR GLAND WITHOUT OBSTRUCTING STONE AND WITHOUT ABSCESS.) 3 of 3 Normal [facility] ED VITALS FLOW SHEETon 06-13 ED VITALS FLOW SHEET Vitals [place] [address] [id number] 06/10/2024 Patient: MICHAEL PARIKH Sex: Male : 1970 Age: 54y Measurements Wt: 98.0 kg, Ht/Emeka: 68.0 in, BMI: 32.84 Measured Time BP MAP HR RR O2Sat ETCO2 Temp Pain GCS RTS 01:36 06/11/2024 129/79 96 71 16 97% 2 20:33 06/10/2024 131/81 98 85 16 97% 98.6 F 8 1 of 1 Normal [facility] AMYLASEon 06-11-2024 Amylase [Catalytic activity/Vol] 2385 U/L High 25 - 115 [facility] Comment on above: Performed By: #### 2 [id number] #### [address] [address] CBC + DIFFon 06-10-2024 Baso # 0.03 x10EE3/UL Normal 0.00 - 0.[address] [facility] Comment on above: Performed By: #### 2 55921 ####[facility],[address] [place] [address] Basophils/100 WBC (Bld) 0.4 % Normal 0.0 - 2.0 [facility] Comment on above: Performed By: #### 2 21443 ####[facility],[address] [place] [address] CBC + DIFF Normal [facility] Comment on above: Result Comment: CBC- COMPLETE BLOOD COUNT Performed By: #### 2 65593 ####[facility],[address] [place] [address] EO # 0.21 x10EE3/UL Normal 0.00 - 0.[address] [facility] Comment on above: Performed By: #### 2 40798 ####[facility],[address] [place] [address] Eosinophils/100 WBC (Bld) 3.0 % Normal 0.0 - 7.0 [facility] Comment on above: Performed By: #### 2 85555 ####[facility],[address] [place] [address] Erythrocyte distribution width (RBC) [Ratio] 13.3 % Normal 12.0 - 15.6 [facility] Comment on above: Performed By: #### 2 12337 ####[facility],[address] [place] [address] Hematocrit (Bld) [Volume fraction] 42.4 % Normal 40.0 - 52.0 [facility] Comment on above: Performed By: #### 2 34881 ####[facility],[address] [place] [address] Hemoglobin (Bld) [Mass/Vol] 14.7 g/dL Normal 13.0 - 17.5 [facility] Comment on above: Performed By: #### 2 95177 ####[facility],[address] [place] [address] Lymph # 2.30 x10EE3/UL Normal 0.80 - 2.[address] [facility] Comment on above: Performed By: #### 2 05009 ####[facility],[address] [place], [place] [id number] Lymphocytes/100 WBC (Bld) 33.4 % Normal 20.0 - 45.0 [facility] Comment on above: Performed By: #### 2 85475 ####[facility],[address] [place] [address] MANUAL DIFF N/A Normal [facility] Comment on above: Performed By: #### 2 17321 ####[facility],[address] [place] [address] MCH (RBC) [Entitic mass] 31 pg Normal 27 - 33 [facility] Comment on above: Performed By: #### 2 98764 ####[facility],[address] [place] [address] MCHC 35 X10 3 Normal 32 - 36 [facility] Comment on above: Performed By: #### 2 80423 ####[facility],[address] [place] [address] MCV (RBC) [Entitic vol] 89 fL Normal 81 - 98 [facility] Comment on above: Performed By: #### 2 09925 ####[facility],[address] [place] [address] Cataño # 0.99 x10EE3/UL Normal 0.20 - 1.[address] [facility] Comment on above: Performed By: #### 2 29937 ####[facility],[address] [place] [address] MONOS % 14.4 % High 0.0 - 10.0 [facility] Comment on above: Performed By: #### 2 84315 ####[facility],[address] [place], [place] [id number] Morphology Altaf (Bld) [Interp] N/A Normal [facility] Comment on above: Performed By: #### 2 95762 ####[facility],[address] [place] [address] Neut # 3.36 x10EE3/UL Normal 1.50 - 7.[address] [facility] Comment on above: Performed By: #### 2 83130 ####[facility],[address] [place] [address] Neutrophils/100 WBC (Bld) 48.8 % Normal 46.0 - 76.0 [facility] Comment on above: Performed By: #### 2 77724 ####[facility],[address] [place] [address] PLATELET 303 x10EE3/UL Normal 150 - 450 [facility] Comment on above: Performed By: #### 2 83098 ####[facility],[address] [place] [address]9595 Platelet mean volume (Bld) [Entitic vol] 7.7 fL Normal 6.4 - 10.5 [facility] Comment on above: Result Comment: AUTO MATED DIFFERENTIAL Performed By: #### 2 35962 ####[facility],[address] [place] [address]1282 RBC 4.77 x 10EE6/UL Normal 4.50 - 6.00 [facility] Comment on above: Performed By: #### 2 37957 ####[facility],[address] [place] [address] WBC 6.9 x 10EE3/UL Normal 4.5 - 10.8 [facility] Comment on above: Performed By: #### 2 04134 ####[facility],[address] [place] [address]81 CMP with eGFRon 06-10-2024 AGE 54 years Normal [facility] Comment on above: Performed By: #### 2 88805 #### [facility],[address] [place] [address] 98439 Albumin [Mass/Vol] 3.9 g/dL Normal 3.4 - 5.0 [facility] Comment on above: Performed By: #### 2 70256 #### [facility],[address] [place] [address]776 Albumin/Globulin [Mass ratio] 1.3 {ratio} Normal 0.9 - 1.6 [facility] Comment on above: Performed By: #### 2 95828 #### [facility],[address] [place] [address] ALK PHOS 140 U/L High 46 - 116 [facility] Comment on above: Performed By: #### 2 32970 #### [facility],[address] [place] [address] 98399 ALT [Catalytic activity/Vol] 43 U/L Normal 16 - 63 [facility] Comment on above: Performed By: #### 2 22106 #### [facility],[address] [place] [address] 42024 Anion gap [Moles/Vol] 13 mmol/L Normal 10 - 20 [facility] Comment on above: Performed By: #### 2 58412 #### [facility],[address] [place] [address] 96837 AST [Catalytic activity/Vol] 20 U/L Normal 15 - 37 [facility] Comment on above: Performed By: #### 2 16384 #### [facility],[address] [place] [address] 65700 B/C RATIO 11 ratio Normal 0 - 30 [facility] Comment on above: Performed By: #### 2 35851 #### [facility],[address] [place] [address] 83134 Bilirubin [Mass/Vol] 0.2 mg/dL Normal 0.2 - 1.0 [facility] Comment on above: Performed By: #### 2 43995 #### [facility],[address] [place] [address] 65098 Calcium [Mass/Vol] 8.4 mg/dL Low 8.5 - 10.1 [facility] Comment on above: Performed By: #### 2 67213 #### [facility],[address] [place] [address] 34086 Chloride [Moles/Vol] 104 mmol/L Normal 98 - 107 [facility] Comment on above: Performed By: #### 2 09975 #### [facility],[address] [place] [address] 11305 CMP with eGFR Normal [facility] Comment on above: Result Comment: COMP REHENSIVE METABOLIC PANEL Performed By: #### 2 87009 #### [facility],[address] [place] [address]109 CO2 [Moles/Vol] 24.2 mmol/L Normal 21.0 - 32.0 [facility] Comment on above: Performed By: #### 2 76943 #### [facility],[address] [place] [address] 86869 Creatinine [Mass/Vol] 0.92 mg/dL Normal 0.70 - 1.30 [facility] Comment on above: Performed By: #### 2 38103 #### [facility],[address] [place] [address] 82910 GFR/1.73 sq M.predicted among non-blacks MDRD (S/P/Bld) [Vol rate/Area] mL/min/{1.73_m2} Normal 60 - 999 [facility] Comment on above: Performed By: #### 2 89892 #### [facility],[address] [place] [id number] Result Comment: ACCO RDING TO THE NATIONAL KIDNEY DISEASE EDUCATION PROGRAM(NKDE), A NORMAL eGFR IS A VALUE GREATER THAN OR EQUAL TO 60 ML/MIN/1.73 SQ METERS. CHRONIC KIDNEY DISEASE: <60mL/MIN/1.73 SQ METERS KIDNEY FAILURE: <15mL/MIN/1.73 SQ METERS THIS TEST SHOULD ONLY BE USED FOR PATIENTS 18 YEARS OF AGE AND OLDER. Globulin (S) [Mass/Vol] 3.1 g/dL Normal 1.5 - 3.8 [facility] Comment on above: Performed By: #### 2 84288 #### [facility],[address] [place] [address] 96649 Glucose [Mass/Vol] 79 mg/dL Normal 74 - 106 [facility] Comment on above: Performed By: #### 2 57168 #### [facility],[address] [place] [address] 17831 Potassium [Moles/Vol] 4.0 mmol/L Normal 3.5 - 5.1 [facility] Comment on above: Performed By: #### 2 87843 #### [facility],[address] [place] [address] 24998 Protein [Mass/Vol] 7.0 g/dL Normal 6.4 - 8.2 [facility] Comment on above: Performed By: #### 2 97431 #### [facility],[address] [place] [address] 50546 Sodium [Moles/Vol] 137 mmol/L Normal 136 - 145 [facility] Comment on above: Performed By: #### 2 04787 #### [facility],[address] [place], [place] [id number] Urea nitrogen [Mass/Vol] 10 mg/dL Normal 7 - 18 [facility] Comment on above: Performed By: #### 2 06234 #### [facility],[address] [place], [place] [id number] CT FACIAL BONES W/CONTRASTon 06-10-2024 CT FACIAL BONES W/CONTRAST [place] [address] Patient: MICHAEL PARIKH Phone#: : 1970 Age: 54 Gender: M Pt. Type: ER Account: [id number] Location: [facility] Ordering: JASON CHILD Exam Date: 06/10/2024/22:16 Family Phys: ANANYA NARVAEZ Charge Code: 038284 Physician: Cannon Order #: [id number] Dose#: 30.50 PROCEDURE: CT FACIAL BONES WITH CONTRAST COMPARISON: None. INDICATIONS: Jaw pain. TECHNIQUE: After obtaining the patient's consent, CT images were created with non-ionic intravenous contrast. All CT scans at this facility use dose modulation, iterative reconstruction, and/or weight based dosing when appropriate to reduce radiation dose to as low as reasonably achievable. IV CONTRAST: Omnipaque 350,50ml TOTAL DOSE: 30.5 CTDIvol(mGy) FINDINGS: FACIAL BONES: Left mandibular canine and right mandibular 1st premolar periapical lucencies and dental caries. SINUSES: Maxillary sinus mucosal thickening. Right maxillary sinus mucous retention cysts. NASAL FOSSA: Rightward nasal septal spur. Right sphenoid sinus mucosal thickening. SKULL BASE: Normal. No mass or bone destruction. ORBITS: Normal. No visible mass, hematoma, edema or fracture. CAVERNOUS SINUS: Normal. Symmetric appearance with no visible lesion. SALIVARY GLANDS: Soft tissue swelling of the left parotid gland with stranding of the adjacent subcutaneous tissues. No loculated or rim enhancing fluid collection. There are reactive appearing left lymph nodes. OTHER: There is soft tissue stranding overlying the anterior mandible. No rim enhancing fluid collection. CONCLUSION: 1. Left parotid sialadenitis 2. Mandibular periapical lucencies and dental caries. Dictated by: Malka Dunn MD on 06/11/2024 at 14:53 Continued Report - Page 2 of 2 Patient: MICHAEL PARIKH Phone#: : 1970 Age: 54 Gender: M Pt. Type: ER Account: [id number] Location: [facility] Ordering: JASON CHILD Exam Date: 06/10/2024/22:16 Family Phys: ANANYA NARVAEZ Charge Code: 846342 Physician: Cannon Order #: [id number] Dose#: 30.50 Approved by: Malka Dunn MD on 06/11/2024 at 15:09 Normal [facility] CBC + DIFFon 05-10-2024 Baso # 0.01 x10EE3/UL Normal 0.00 - 0.[address] [facility] Comment on above: Performed By: #### 2 97248 #### [facility],[address] [place] [address] 09456 Basophils/100 WBC (Bld) 0.3 % Normal 0.0 - 2.0 [facility] Comment on above: Performed By: #### 2 69881 #### [facility],[address] [place] [address] CBC + DIFF Normal [facility] Comment on above: Result Comment: CBC- COMPLETE BLOOD COUNT Performed By: #### 2 26369 #### [facility],[address] [place] [address] EO # 0.21 x10EE3/UL Normal 0.00 - 0.[address] [facility] Comment on above: Performed By: #### 2 96986 #### [facility],[address] [place] [address] 36525 Eosinophils/100 WBC (Bld) 5.2 % Normal 0.0 - 7.0 [facility] Comment on above: Performed By: #### 2 22450 #### [facility],[address] [place], [place] [address] Erythrocyte distribution width (RBC) [Ratio] 13.2 % Normal 12.0 - 15.6 [facility] Comment on above: Performed By: #### 2 57553 #### [facility],[address] [place] [address] Hematocrit (Bld) [Volume fraction] 49.0 % Normal 40.0 - 52.0 [facility] Comment on above: Performed By: #### 2 11552 #### [facility],[address] [place] [address] 64644 Hemoglobin (Bld) [Mass/Vol] 16.1 g/dL Normal 13.0 - 17.5 [facility] Comment on above: Performed By: #### 2 25610 #### [facility],[address] [place], [place] [address] Lymph # 1.79 x10EE3/UL Normal 0.80 - 2.[address] [facility] Comment on above: Performed By: #### 2 45132 #### [facility],[address] [place] [address] Lymphocytes/100 WBC (Bld) 43.8 % Normal 20.0 - 45.0 [facility] Comment on above: Performed By: #### 2 48616 #### [facility],[address] [place] [address] MANUAL DIFF N/A Normal [facility] Comment on above: Performed By: #### 2 75099 #### [facility],[address] [place] [address] MCH (RBC) [Entitic mass] 30 pg Normal 27 - 33 [facility] Comment on above: Performed By: #### 2 58629 #### [place] [address] MCHC 33 X10 3 Normal 32 - 36 [facility] Comment on above: Performed By: #### 2 27308 #### [place] [address] MCV (RBC) [Entitic vol] 90 fL Normal 81 - 98 [facility] Comment on above: Performed By: #### 2 56563 #### [facility],[address] [place] [address] Cataño # 0.36 x10EE3/UL Normal 0.20 - 1.[address] [facility] Comment on above: Performed By: #### 2 79925 #### [place] [id number] MONOS % 8.7 % Normal 0.0 - 10.0 [facility] Comment on above: Performed By: #### 2 15665 #### [facility],[address] [place], [place] [address] Morphology Altaf (Bld) [Interp] N/A Normal [facility] Comment on above: Performed By: #### 2 32518 #### [facility],[address] [place] [address] 32867 Neut # 1.72 x10EE3/UL Normal 1.50 - 7.[address] [facility] Comment on above: Performed By: #### 2 50966 #### [facility],[address] [place] [address] 26105 Neutrophils/100 WBC (Bld) 42.0 % Low 46.0 - 76.0 [facility] Comment on above: Performed By: #### 2 42500 #### [facility],[address] [place] [address] 18237 PLATELET 274 x10EE3/UL Normal 150 - 450 [facility] Comment on above: Performed By: #### 2 37413 #### [facility],[address] [place] [address] 01642 Platelet mean volume (Bld) [Entitic vol] 8.2 fL Normal 6.4 - 10.5 [facility] Comment on above: Result Comment: AUTO MATED DIFFERENTIAL Performed By: #### 2 35982 #### [facility],[address] [place] [address] 70026 RBC 5.46 x 10EE6/UL Normal 4.50 - 6.00 [facility] Comment on above: Performed By: #### 2 30264 #### [facility],[address] [place] [address] 80962 WBC 4.1 x 10EE3/UL Low 4.5 - 10.8 [facility] Comment on above: Performed By: #### 2 27985 #### [facility],[address] [place] [address] 32506 CMP with eGFRon 05-10-2024 AGE 54 years Normal [facility] Comment on above: Performed By: #### 2 25462 #### [facility],[address] [place] [address] 06814 Albumin [Mass/Vol] 4.3 g/dL Normal 3.4 - 5.0 [facility] Comment on above: Performed By: #### 2 10711 #### [facility],[address] [place] [address] 29278 Albumin/Globulin [Mass ratio] 1.3 {ratio} Normal 0.9 - 1.6 [facility] Comment on above: Performed By: #### 2 20405 #### [facility],[address] [place] [address] ALK PHOS 120 U/L High 46 - 116 [facility] Comment on above: Performed By: #### 2 60278 #### [facility],[address] [place] [address] ALT [Catalytic activity/Vol] 47 U/L Normal 16 - 63 [facility] Comment on above: Performed By: #### 2 56979 #### [facility],[address] [place], [place] [address] Anion gap [Moles/Vol] 17 mmol/L Normal 10 - 20 [facility] Comment on above: Performed By: #### 2 59459 #### [facility],[address] [place] [address] AST [Catalytic activity/Vol] 23 U/L Normal 15 - 37 [facility] Comment on above: Performed By: #### 2 13654 #### [facility],[address] [place] [address] 32411 B/C RATIO 12 ratio Normal 0 - 30 [facility] Comment on above: Performed By: #### 2 39007 #### [facility],[address] [place] [address] 70077 Bilirubin [Mass/Vol] 0.5 mg/dL Normal 0.2 - 1.0 [facility] Comment on above: Performed By: #### 2 18207 #### [facility],[address] [place] [address] 35332 Calcium [Mass/Vol] 9.2 mg/dL Normal 8.5 - 10.1 [facility] Comment on above: Performed By: #### 2 89586 #### [facility],[address] [place] [address] 42919 Chloride [Moles/Vol] 103 mmol/L Normal 98 - 107 [facility] Comment on above: Performed By: #### 2 07463 #### [facility],[address] [place] [address] 69932 CMP with eGFR Normal [facility] Comment on above: Result Comment: COMP REHENSIVE METABOLIC PANEL Performed By: #### 2 77370 #### [facility],[address] [place] [address] 52582 CO2 [Moles/Vol] 23.5 mmol/L Normal 21.0 - 32.0 [facility] Comment on above: Performed By: #### 2 51318 #### [facility],[address] [place], [place] [address] Creatinine [Mass/Vol] 0.97 mg/dL Normal 0.70 - 1.30 [facility] Comment on above: Performed By: #### 2 09874 #### [facility],[address] [place] [address] 52821 GFR/1.73 sq M.predicted among non-blacks MDRD (S/P/Bld) [Vol rate/Area] mL/min/{1.73_m2} Normal 60 - 999 [facility] Comment on above: Performed By: #### 2 78861 #### [facility],[address] [place] [address] 02327 Result Comment: ACCO RDING TO THE NATIONAL KIDNEY DISEASE EDUCATION PROGRAM(NKDE), A NORMAL eGFR IS A VALUE GREATER THAN OR EQUAL TO 60 ML/MIN/1.73 SQ METERS. CHRONIC KIDNEY DISEASE: <60mL/MIN/1.73 SQ METERS KIDNEY FAILURE: <15mL/MIN/1.73 SQ METERS THIS TEST SHOULD ONLY BE USED FOR PATIENTS 18 YEARS OF AGE AND OLDER. Globulin (S) [Mass/Vol] 3.2 g/dL Normal 1.5 - 3.8 [facility] Comment on above: Performed By: #### 2 78770 #### [facility],[address] [place] [address] 05784 Glucose [Mass/Vol] 85 mg/dL Normal 74 - 106 [facility] Comment on above: Performed By: #### 2 88650 #### [facility],[address] [place] [address] 17643 Potassium [Moles/Vol] 4.2 mmol/L Normal 3.5 - 5.1 [facility] Comment on above: Performed By: #### 2 49737 #### [facility],[address] [place] [address] 39111 Protein [Mass/Vol] 7.5 g/dL Normal 6.4 - 8.2 [facility] Comment on above: Performed By: #### 2 30223 #### [facility],[address] [place] [address] 95884 Sodium [Moles/Vol] 139 mmol/L Normal 136 - 145 [facility] Comment on above: Performed By: #### 2 84467 #### [facility],[address] [place] [address] 31461 Urea nitrogen [Mass/Vol] 12 mg/dL Normal 7 - 18 [facility] Comment on above: Performed By: #### 2 22155 #### [facility],[address] [place] [address] 81174 HEMOGLOBIN A1C (POM)on 05-10 Glucose [Mass/Vol] 114.0 mg/dL High 0.0 - 0.0 [facility] Comment on above: Result Comment: BLDo HEMOGLOBIN A1C REFERENCE RANGESBLDo Suggested Diagnosis HbA1c(%) HbA1C (mmol/mol Diabetic >/=6.5 >/=48 Prediabetes 5.7 - 6.4 39 - 47 Normal <5.7 <39 Performed By: #### 2 29950 #### [facility],[address] [place] [address] 87669 HbA1c (Bld) [Mass fraction] 5.6 % Normal 0.0 - 6.5 [facility] Comment on above: Performed By: #### 2 55890 #### [facility],[address] [place] [address] 90770 LIPID PROFILEon 05-10-2024 Cholesterol [Mass/Vol] 227 mg/dL Normal 0 - 240 [facility] Comment on above: Performed By: #### 2 40184 #### [facility],[address] [place] [address] 26485 Cholesterol in HDL [Mass/Vol] 47 mg/dL Normal 40 - 60 [facility] Comment on above: Performed By: #### 2 47326 #### [facility],[address] [place] [address] 13794 Cholesterol in LDL [Mass/Vol] 145 mg/dL High 0 - 129 [facility] Comment on above: Performed By: #### 2 49913 #### [facility],[address] [place] [address] 12588 Cholesterol.total/Chol esterol in HDL [Mass ratio] 4.8 {ratio} Normal 0.0 - 5.0 [facility] Comment on above: Performed By: #### 2 03541 #### [facility],[address] [place] [address] 37240 Lipid 1996 panel Normal [facility] Comment on above: Result Comment: LIPI D PROFILE Performed By: #### 2 81465 #### [facility],[address] [place] [address] 43625 Triglyceride [Mass/Vol] 177 mg/dL High 0 - 150 [facility] Comment on above: Performed By: #### 2 65021 #### [facility],[address] [place] [address] 47847 VITAMIN D, 25 HYDROXYon 04-30 VitD 12.20 ng/mL Low 30.00 - 100 [facility] Comment on above: Result Comment: 25-O HD3 indicates both endogenous production and supplementation. 25-OHD2 is an indicator of exogenous sources, such as diet or supplementation. Therapy is based on measurement of Total 25-OHD, with levels <20 ng/mL indicative of Vitamin D deficiency, while levels between 20 ng/mL and 30 ng/mL suggest insufficiency. Optimal levels are >=30ng/mL. Vitamin D, 25-OH D3 Not Established Vitamin D, 25-OH D2 Not Established Performed By: #### 2 87279 ####[facility],[address] [place], [place] [address] CT BRAIN W/O CONTRASTon 12- CT BRAIN W/O CONTRAST [place] [id number] Patient: MICHAEL PARIKH Phone#: : 1970 Age: 54 Gender: M Pt. Type: Out Account: [id number] Location: [facility] Ordering: ANANYA NARVAEZ Exam Date: 03/17/2024/13:09 Family Phys: Charge Code: [id number] Physician: Cannon Order #: [id number] Dose#: 57.50 PROCEDURE: CT BRAIN WITHOUT CONTRAST COMPARISON: [facility], CT, BRAIN W/O CON, 12/16/2021, 0:30. INDICATIONS: Memory change. TECHNIQUE: CT images were obtained without contrast material. All CT scans at this facility use dose modulation, iterative reconstruction, and/or weight based dosing when appropriate to reduce radiation dose to as low as reasonably achievable. IV CONTRAST: No IV contrast used,0ml TOTAL DOSE: 57.50 CTDIvol(mGy) FINDINGS: CEREBRUM: Age-appropriate atrophy is present, without visible acute hemorrhage or lesion. CEREBELLUM: No edema, hemorrhage, mass, acute infarction, or inappropriate atrophy. BRAINSTEM: No edema, hemorrhage, mass, acute infarction, or inappropriate atrophy. CSF SPACES: Ventricles, cisterns, and sulci are appropriate for age. No hydrocephalus, subarachnoid hemorrhage, or mass. SKULL: No mass or other significant visible lesion. SINUSES: Mucosal thickening is present in the maxillary sinuses. ORBITS: Limited views are unremarkable. OTHER: Negative. CONCLUSION: 1. There is no evidence of acute intracranial abnormality. Dictated by: Vashti Branham MD on 03/17/2024 at 14:55 Approved by: Vashti Branham MD on 03/17/2024 at 14:57 Normal [facility] .Auto Diffon 12-12-2023 Basophil, Absolute 0.1 10 3/mcL Normal 0.0-0.[address] [facility] Comment on above: Performed By: #### B MP, CBC, ANEU, ADIFF, MG, GFR ####[place] [address] [place], [place] [address] Basophils/100 WBC (Bld) 0.7 % Normal 0.0-2.5 Comment on above: Performed By: #### B MP, CBC, ANEU, ADIFF, MG, GFR ####[place] [address] [place], [place] [address] Eosinophil, Absolute 0.3 10 3/mcL Normal 0.0-0.4 [facility] Comment on above: Performed By: #### B MP, CBC, ANEU, ADIFF, MG, GFR ####[place] [address] [place], [place] [address] Eosinophils/100 WBC (Bld) 3.4 % Normal 0.0-7.0 Comment on above: Performed By: #### B MP, CBC, ANEU, ADIFF, MG, GFR ####[facility] [place] [address] 93951 Lymphocyte, Absolute 1.7 10 3/mcL Normal 0.8-3.9 [facility] Comment on above: Performed By: #### B MP, CBC, ANEU, ADIFF, MG, GFR ####[address] [address] Lymphocytes/100 WBC (Bld) 17.7 % Normal 10.0-50.0 Comment on above: Performed By: #### B MP, CBC, ANEU, ADIFF, MG, GFR ####[address] [place], [place] [address] Monocyte, Absolute 0.9 10 3/mcL Normal 0.2-1.[address] [facility] Comment on above: Performed By: #### B MP, CBC, ANEU, ADIFF, MG, GFR ####[address] [place], [place] [address] Monocytes/100 WBC (Bld) 8.9 % Normal 1.7-13.0 Comment on above: Performed By: #### B MP, CBC, ANEU, ADIFF, MG, GFR ####[address] [place], [place] [address] Neutrophils/100 WBC (Bld) 69.3 % Normal 37.0-80.0 Comment on above: Performed By: #### B MP, CBC, ANEU, ADIFF, MG, GFR ####[address] [place], [place] [address] .GFRon 12-12-2023 GFR 137 ml/min/1.73sqm Normal Comment on above: Result Comment: GFR Population mean for , Non- Americans Ages 20-29 = 116 mL/min/1.73 sq.m. Ages 30-39 = 107 mL/min/1.73 sq.m. Ages 40-49 = 99 mL/min/1.73 sq.m. Ages 50-59 = 93 mL/min/1.73 sq.m. Ages 60-69 = 85 mL/min/1.73 sq.m. Ages 70+ = 75 mL/min/1.73 sq.m. Chronic Kidney Disease: Less than 60 mL/min/1.73 square meters End Stage Renal Disease: Less than 15 mL/min/1.73 square meters Performed By: #### B MP, CBC, ANEU, ADIFF, MG, GFR ####[address] [place], [place] [address] GFR Non- 113 ml/min/1.73sqm Normal Comment on above: Result Comment: GFR Population mean for , Non- Americans Ages 20-29 = 116 mL/min/1.73 sq.m. Ages 30-39 = 107 mL/min/1.73 sq.m. Ages 40-49 = 99 mL/min/1.73 sq.m. Ages 50-59 = 93 mL/min/1.73 sq.m. Ages 60-69 = 85 mL/min/1.73 sq.m. Ages 70+ = 75 mL/min/1.73 sq.m. Chronic Kidney Disease: Less than 60 mL/min/1.73 square meters End Stage Renal Disease: Less than 15 mL/min/1.73 square meters Performed By: #### B MP, CBC, ANEU, ADIFF, MG, GFR ####[facility] [place], [place] [address] .NEUABSon 12-12-2023 Neutrophil, Absolute 6.8 10 3/mcL High 2.9-6.2 [facility] Comment on above: Performed By: #### B MP, CBC, ANEU, ADIFF, MG, GFR ####[place] [address] [place], [place] [address] BMPon 12-12-2023 BUN/Creatinine Ratio 12 ratio Normal 7-[address] [facility] Comment on above: Performed By: #### B MP, CBC, ANEU, ADIFF, MG, GFR ####[facility] [place], [place] [address] Calcium [Mass/Vol] 8.4 mg/dL Normal 8.4-10.2 [facility] Comment on above: Performed By: #### B MP, CBC, ANEU, ADIFF, MG, GFR ####[place] [address] [place], [place] [address] Chloride [Moles/Vol] 100 mmol/L Normal 98-[address] [facility] Comment on above: Performed By: #### B MP, CBC, ANEU, ADIFF, MG, GFR ####[place] [address] [place], [place] [address] CO2 [Moles/Vol] 30 mmol/L High 22-29 Comment on above: Performed By: #### B MP, CBC, ANEU, ADIFF, MG, GFR ####[address] [address] Creatinine [Mass/Vol] 0.72 mg/dL Normal 0.70-1.30 [facility] Comment on above: Result Comment: Test ing performed on Siemens Dimension EXL analyzer using a modified kinetic Tiera technique. Performed By: #### B MP, CBC, ANEU, ADIFF, MG, GFR ####[address] [address] Electrolyte Balance 5.0 mEq/L Normal 4.0-15.0 [facility] Comment on above: Performed By: #### B MP, CBC, ANEU, ADIFF, MG, GFR ####[address] [address] Glucose [Mass/Vol] 94 mg/dL Normal 70-105 [facility] Comment on above: Performed By: #### B MP, CBC, ANEU, ADIFF, MG, GFR ####[address] [address] Potassium [Moles/Vol] 3.7 mmol/L Normal 3.5-5.1 [facility] Comment on above: Performed By: #### B MP, CBC, ANEU, ADIFF, MG, GFR ####[address] [address] Sodium [Moles/Vol] 135 mmol/L Low 136-145 [facility] Comment on above: Performed By: #### B MP, CBC, ANEU, ADIFF, MG, GFR ####[address] [address] Urea nitrogen [Mass/Vol] 9 mg/dL Normal 7-18 Comment on above: Performed By: #### B MP, CBC, ANEU, ADIFF, MG, GFR ####[address] [address] CBCon 12-12-2023 Erythrocyte distribution width (RBC) [Ratio] 14.4 % Normal 11.5-14.5 Comment on above: Performed By: #### B MP, CBC, ANEU, ADIFF, MG, GFR ####[facility] [place], [place] [address] Hematocrit (Bld) [Volume fraction] 39.8 % Low 42.0-52.0 Comment on above: Performed By: #### B MP, CBC, ANEU, ADIFF, MG, GFR ####[place] [place], [place] [address] Hgb 13.3 G/dL Low 14.0-18.0 Comment on above: Performed By: #### B MP, CBC, ANEU, ADIFF, MG, GFR ####[place] [address] [place] [id number] MCH (RBC) [Entitic mass] 30.0 pg Normal 27.0-31.2 Comment on above: Performed By: #### B MP, CBC, ANEU, ADIFF, MG, GFR ####[place] [address] MCHC 33.5 G/dL Normal 31.8-35.4 Comment on above: Performed By: #### B MP, CBC, ANEU, ADIFF, MG, GFR ####[place] [id number] MCV (RBC) [Entitic vol] 89.5 fL Normal 80.0-94.0 Comment on above: Performed By: #### B MP, CBC, ANEU, ADIFF, MG, GFR ####[place] [id number] Platelet 246 10 3/mcL Normal 130-400 Comment on above: Performed By: #### B MP, CBC, ANEU, ADIFF, MG, GFR ####[place] [address] [place], [place] [address] Platelet mean volume (Bld) [Entitic vol] 8.5 fL Normal 7.4-10.4 Comment on above: Performed By: #### B MP, CBC, ANEU, ADIFF, MG, GFR ####[address] [place], [place] [address] RBC 4.45 10 6/mcL Normal 4.04-6.13 Comment on above: Performed By: #### B MP, CBC, ANEU, ADIFF, MG, GFR ####[address] [place], [place] [address] WBC 9.8 10 3/mcL Normal 4.6-10.8 Comment on above: Performed By: #### B MP, CBC, ANEU, ADIFF, MG, GFR ####[address] [place], [place] [address] LABORATORYOrdered By: SYSTEM SYSTEM on 12-12-2023 Basophils (Bld) [#/Vol] 0.1 103/mcL Normal 0.0 - 0.2 10^3/mcL AO Workflow SS Basophils/100 WBC (Bld) 0.7 % Normal 0.0 - 2.5 % AO Workflow SS Calcium [Mass/Vol] 8.4 mg/dL Normal 8.4 - 10. 2 mg/dL AO ADM SS Chloride [Moles/Vol] 100 mmol/L Normal 98 - 10 7 mmol/L AO ADM SS CO2 [Moles/Vol] 30 mmol/L High 22 - 29 mmol/L AO ADM SS Creatinine [Mass/Vol] 0.72 mg/dL Normal 0.70 - 1.30 mg/dL AO ADM SS Comment on above: Interpretive Data: T esting performed on Siemens Dimension EXL analyzer using a modified kinetic Tiera technique. Electrolyte Balance 5.0 mEq/L Normal 4.0 - 15 .0 mEq/L AO ADM SS Eosinophil, Absolute 0.3 103/mcL Normal 0.0 - 0 .4 10^3/mcL AO Workflow SS Eosinophils/100 WBC (Bld) 3.4 % Normal 0.0 - 7.0 % AO Workflow SS Erythrocyte distribution width (RBC) [Ratio] 14.4 % Normal 11.5 - 14.5 % AO Workflow SS GFR/1.73 sq M.predicted among blacks MDRD (S/P/Bld) [Vol rate/Area] 137 ml/min/1.73sqm Invalid Interpretation Code AO Chemistry S Comment on above: Interpretive Data: GFR Population mean for , Non- Americans Ages 20-29 = 116 mL/min/1.73 sq.m. Ages 30-39 = 107 mL/min/1.73 sq.m. Ages 40-49 = 99 mL/min/1.73 sq.m. Ages 50-59 = 93 mL/min/1.73 sq.m. Ages 60-69 = 85 mL/min/1.73 sq.m. Ages 70+ = 75 mL/min/1.73 sq.m. Chronic Kidney Disease: Less than 60 mL/min/1.73 square meters End Stage Renal Disease: Less than 15 mL/min/1.73 square meters GFR/1.73 sq M.predicted among non-blacks MDRD (S/P/Bld) [Vol rate/Area] 113 ml/min/1.73sqm Invalid Interpretation Code AO Chemistry S Comment on above: Interpretive Data: GFR Population mean for , Non- Americans Ages 20-29 = 116 mL/min/1.73 sq.m. Ages 30-39 = 107 mL/min/1.73 sq.m. Ages 40-49 = 99 mL/min/1.73 sq.m. Ages 50-59 = 93 mL/min/1.73 sq.m. Ages 60-69 = 85 mL/min/1.73 sq.m. Ages 70+ = 75 mL/min/1.73 sq.m. Chronic Kidney Disease: Less than 60 mL/min/1.73 square meters End Stage Renal Disease: Less than 15 mL/min/1.73 square meters Glucose [Mass/Vol] 94 mg/dL Normal 70 - 105 mg/dL AO ADM SS Hematocrit (Bld) [Volume fraction] 39.8 % Low 42.0 - 52.0 % AO Workflow SS Hemoglobin (Bld) [Mass/Vol] 13.3 G/dL Low 14.0 - 18.0 G/dL AO Workflow SS Lymphocytes (Bld) [#/Vol] 1.7 103/mcL Normal 0.8 - 3.9 10^3/mcL AO Workflow SS Lymphocytes/100 WBC (Bld) 17.7 % Normal 10.0 - 50.0 % AO Workflow SS Magnesium [Mass/Vol] 2.2 mg/dL Normal 1.8 - 2 .4 mg/dL AO ADM SS MCH (RBC) [Entitic mass] 30.0 pg Normal 27.0 - 31.2 pg AO Workflow SS MCHC 33.5 G/dL Normal 31.8 - 35.4 G/dL AO Workflow SS MCV (RBC) [Entitic vol] 89.5 fL Normal 80.0 - 94.0 fL AO Workflow SS Monocytes (Bld) [#/Vol] 0.9 103/mcL Normal 0.2 - 1.0 10^3/mcL AO Workflow SS Monocytes/100 WBC (Bld) 8.9 % Normal 1.7 - 13.0 % AO Workflow SS Neutrophils (Bld) [#/Vol] 6.8 103/mcL High 2.9 - 6.2 10^3/mcL AO Workflow SS Neutrophils/100 WBC (Bld) 69.3 % Normal 37.0 - 80.0 % AO Workflow SS Platelet mean volume (Bld) [Entitic vol] 8.5 fL Normal 7.4 - 10.4 fL AO Workflow SS Platelets (Bld) [#/Vol] 246 103/mcL Normal 130 - 400 10^3/mcL AO Workflow SS Potassium [Moles/Vol] 3.7 mmol/L Normal 3.5 - 5.1 mmol/L AO ADM SS RBC (Bld) [#/Vol] 4.45 106/mcL Normal 4.04 - 6.1 3 10^6/mcL AO Workflow SS Sodium [Moles/Vol] 135 mmol/L Low 136 - 145 mmol/L AO ADM SS Urea nitrogen [Mass/Vol] 9 mg/dL Normal 7 - 18 mg/dL AO ADM SS Urea nitrogen/Creatinine [Mass ratio] 12 ratio Normal 7 - 27 ratio AO ADM SS WBC (Bld) [#/Vol] 9.8 103/mcL Normal 4.6 - 10.8 10^3/mcL AO Workflow SS MGon 12-12-2023 Magnesium [Mass/Vol] 2.2 mg/dL Normal 1.8-2.[address] [facility] Comment on above: Performed By: #### B MP, CBC, ANEU, ADIFF, MG, GFR ####[facility] [place], [place] [address] MYCOon 12-12-2023 Mycoplasma IgG Negative Normal Comment on above: Result Comment: INTE RPRETATION OF MYCOPLASMA IgG BY EIA: Negative: No detectable M. pneumoniae IgG antibody. Positive: Mycoplasma pneumoniae IgG antibody Detected. Equivocal: Equivocal for IgG antibodies to Mycoplasma pneumoniae. Suggest repeat testing in 10-14 days. Performed By: #### M YCO ####[address] [address] .Auto Diffon 12-11-2023 Basophil, Absolute 0.0 10 3/mcL Normal 0.0-0.[address] [facility] Comment on above: Performed By: #### A DIFF, MG, CBC, BMP, GFR, ANEU ####[place] [address] [place], [place] [address] Basophils/100 WBC (Bld) 0.2 % Normal 0.0-2.5 Comment on above: Performed By: #### A DIFF, MG, CBC, BMP, GFR, ANEU ####[place] [address] [place], [place] [address] Eosinophil, Absolute 0.0 10 3/mcL Normal 0.0-0.4 [facility] Comment on above: Performed By: #### A DIFF, MG, CBC, BMP, GFR, ANEU ####[facility] [place], [place] [address] Eosinophils/100 WBC (Bld) 0.4 % Normal 0.0-7.0 Comment on above: Performed By: #### A DIFF, MG, CBC, BMP, GFR, ANEU ####[facility] [place], [place] [address] Lymphocyte, Absolute 1.1 10 3/mcL Normal 0.8-3.9 [facility] Comment on above: Performed By: #### A DIFF, MG, CBC, BMP, GFR, ANEU ####[address] [address] Lymphocytes/100 WBC (Bld) 9.2 % Low 10.0-50.0 Comment on above: Performed By: #### A DIFF, MG, CBC, BMP, GFR, ANEU ####[facility] [place], [place] [address] Monocyte, Absolute 1.1 10 3/mcL High 0.2-1.[address] [facility] Comment on above: Performed By: #### A DIFF, MG, CBC, BMP, GFR, ANEU ####[facility] [place], [place] [address] Monocytes/100 WBC (Bld) 8.5 % Normal 1.7-13.0 Comment on above: Performed By: #### A DIFF, MG, CBC, BMP, GFR, ANEU ####[address] [place] [place], [place] [address] Neutrophils/100 WBC (Bld) 81.5 % High 37.0-80.0 Comment on above: Performed By: #### A DIFF, MG, CBC, BMP, GFR, ANEU ####[place] [address] [place], [place] [address] .GFRon 12-11-2023 GFR 118 ml/min/1.73sqm Normal Comment on above: Result Comment: GFR Population mean for , Non- Americans Ages 20-29 = 116 mL/min/1.73 sq.m. Ages 30-39 = 107 mL/min/1.73 sq.m. Ages 40-49 = 99 mL/min/1.73 sq.m. Ages 50-59 = 93 mL/min/1.73 sq.m. Ages 60-69 = 85 mL/min/1.73 sq.m. Ages 70+ = 75 mL/min/1.73 sq.m. Chronic Kidney Disease: Less than 60 mL/min/1.73 square meters End Stage Renal Disease: Less than 15 mL/min/1.73 square meters Performed By: #### A DIFF, MG, CBC, BMP, GFR, ANEU #### [facility] [address] [place], [place] [address] GFR Non- 98 ml/min/1.73sqm Normal Comment on above: Result Comment: GFR Population mean for , Non- Americans Ages 20-29 = 116 mL/min/1.73 sq.m. Ages 30-39 = 107 mL/min/1.73 sq.m. Ages 40-49 = 99 mL/min/1.73 sq.m. Ages 50-59 = 93 mL/min/1.73 sq.m. Ages 60-69 = 85 mL/min/1.73 sq.m. Ages 70+ = 75 mL/min/1.73 sq.m. Chronic Kidney Disease: Less than 60 mL/min/1.73 square meters End Stage Renal Disease: Less than 15 mL/min/1.73 square meters Performed By: #### A DIFF, MG, CBC, BMP, GFR, ANEU #### [address] [address] .NEUABSon 12-11-2023 Neutrophil, Absolute 10.5 10 3/mcL High 2.9-6.2 [facility] Comment on above: Performed By: #### A DIFF, MG, CBC, BMP, GFR, ANEU ####[address] [address] BMPon 12-11-2023 BUN/Creatinine Ratio 16 ratio Normal 7-[address] [facility] Comment on above: Performed By: #### A DIFF, MG, CBC, BMP, GFR, ANEU #### [address] [address] Calcium [Mass/Vol] 8.5 mg/dL Normal 8.4-10.2 [facility] Comment on above: Performed By: #### A DIFF, MG, CBC, BMP, GFR, ANEU #### [address] [address] Chloride [Moles/Vol] 100 mmol/L Normal 98-[address] [facility] Comment on above: Performed By: #### A DIFF, MG, CBC, BMP, GFR, ANEU #### [address] [address] CO2 [Moles/Vol] 31 mmol/L High 22-29 Comment on above: Performed By: #### A DIFF, MG, CBC, BMP, GFR, ANEU #### [address] [address] Creatinine [Mass/Vol] 0.82 mg/dL Normal 0.70-1.30 [facility] Comment on above: Result Comment: Test ing performed on Siemens Dimension EXL analyzer using a modified kinetic Tiera technique. Performed By: #### A DIFF, MG, CBC, BMP, GFR, ANEU #### [address] [address] Electrolyte Balance 3.0 mEq/L Low 4.0-15.0 [facility] Comment on above: Performed By: #### A DIFF, MG, CBC, BMP, GFR, ANEU #### [address] [address] Glucose [Mass/Vol] 117 mg/dL High 70-105 [facility] Comment on above: Performed By: #### A DIFF, MG, CBC, BMP, GFR, ANEU #### [address] [address] Potassium [Moles/Vol] 4.0 mmol/L Normal 3.5-5.1 [facility] Comment on above: Performed By: #### A DIFF, MG, CBC, BMP, GFR, ANEU #### [address] [address] Sodium [Moles/Vol] 134 mmol/L Low 136-145 [facility] Comment on above: Performed By: #### A DIFF, MG, CBC, BMP, GFR, ANEU #### [address] [address] Urea nitrogen [Mass/Vol] 13 mg/dL Normal 7-18 Comment on above: Performed By: #### A DIFF, MG, CBC, BMP, GFR, ANEU #### [address] [address] CBCon 12-11-2023 Erythrocyte distribution width (RBC) [Ratio] 13.4 % Normal 11.5-14.5 Comment on above: Performed By: #### A DIFF, MG, CBC, BMP, GFR, ANEU #### [address] [address] Hematocrit (Bld) [Volume fraction] 38.6 % Low 42.0-52.0 Comment on above: Performed By: #### A DIFF, MG, CBC, BMP, GFR, ANEU #### [place] [address] Hgb 13.0 G/dL Low 14.0-18.0 Comment on above: Performed By: #### A DIFF, MG, CBC, BMP, GFR, ANEU #### [place] [address] MCH (RBC) [Entitic mass] 29.8 pg Normal 27.0-31.2 Comment on above: Performed By: #### A DIFF, MG, CBC, BMP, GFR, ANEU #### [place] [address] MCHC 33.7 G/dL Normal 31.8-35.4 Comment on above: Performed By: #### A DIFF, MG, CBC, BMP, GFR, ANEU #### [place] [address] MCV (RBC) [Entitic vol] 88.3 fL Normal 80.0-94.0 Comment on above: Performed By: #### A DIFF, MG, CBC, BMP, GFR, ANEU #### [address] [address] Platelet 242 10 3/mcL Normal 130-400 Comment on above: Performed By: #### A DIFF, MG, CBC, BMP, GFR, ANEU #### [address] [address] Platelet mean volume (Bld) [Entitic vol] 8.7 fL Normal 7.4-10.4 Comment on above: Performed By: #### A DIFF, MG, CBC, BMP, GFR, ANEU #### [address] [address] RBC 4.37 10 6/mcL Normal 4.04-6.13 Comment on above: Performed By: #### A DIFF, MG, CBC, BMP, GFR, ANEU #### [facility] [address] [place], [place] [address] WBC 12.9 10 3/mcL High 4.6-10.8 Comment on above: Performed By: #### A DIFF, MG, CBC, BMP, GFR, ANEU #### [facility] [address] [place], [place] [address] LABORATORYOrdered By: SYSTEM SYSTEM on 12-11-2023 Basophils (Bld) [#/Vol] 0.0 103/mcL Normal 0.0 - 0.2 10^3/mcL AO Workflow SS Basophils/100 WBC (Bld) 0.2 % Normal 0.0 - 2.5 % AO Workflow SS Calcium [Mass/Vol] 8.5 mg/dL Normal 8.4 - 10. 2 mg/dL AO ADM SS Chloride [Moles/Vol] 100 mmol/L Normal 98 - 10 7 mmol/L AO ADM SS CO2 [Moles/Vol] 31 mmol/L High 22 - 29 mmol/L AO ADM SS Creatinine [Mass/Vol] 0.82 mg/dL Normal 0.70 - 1.30 mg/dL AO ADM SS Comment on above: Interpretive Data: T esting performed on Siemens Dimension EXL analyzer using a modified kinetic Tiera technique. Electrolyte Balance 3.0 mEq/L Low 4.0 - 15 .0 mEq/L AO ADM SS Eosinophil, Absolute 0.0 103/mcL Normal 0.0 - 0 .4 10^3/mcL AO Workflow SS Eosinophils/100 WBC (Bld) 0.4 % Normal 0.0 - 7.0 % AO Workflow SS Erythrocyte distribution width (RBC) [Ratio] 13.4 % Normal 11.5 - 14.5 % AO Workflow SS GFR/1.73 sq M.predicted among blacks MDRD (S/P/Bld) [Vol rate/Area] 118 ml/min/1.73sqm Invalid Interpretation Code AO Chemistry S Comment on above: Interpretive Data: GFR Population mean for , Non- Americans Ages 20-29 = 116 mL/min/1.73 sq.m. Ages 30-39 = 107 mL/min/1.73 sq.m. Ages 40-49 = 99 mL/min/1.73 sq.m. Ages 50-59 = 93 mL/min/1.73 sq.m. Ages 60-69 = 85 mL/min/1.73 sq.m. Ages 70+ = 75 mL/min/1.73 sq.m. Chronic Kidney Disease: Less than 60 mL/min/1.73 square meters End Stage Renal Disease: Less than 15 mL/min/1.73 square meters GFR/1.73 sq M.predicted among non-blacks MDRD (S/P/Bld) [Vol rate/Area] 98 ml/min/1.73sqm Invalid Interpretation Code AO Chemistry S Comment on above: Interpretive Data: GFR Population mean for , Non- Americans Ages 20-29 = 116 mL/min/1.73 sq.m. Ages 30-39 = 107 mL/min/1.73 sq.m. Ages 40-49 = 99 mL/min/1.73 sq.m. Ages 50-59 = 93 mL/min/1.73 sq.m. Ages 60-69 = 85 mL/min/1.73 sq.m. Ages 70+ = 75 mL/min/1.73 sq.m. Chronic Kidney Disease: Less than 60 mL/min/1.73 square meters End Stage Renal Disease: Less than 15 mL/min/1.73 square meters Glucose [Mass/Vol] 117 mg/dL High 70 - 105 mg/dL AO ADM SS Hematocrit (Bld) [Volume fraction] 38.6 % Low 42.0 - 52.0 % AO Workflow SS Hemoglobin (Bld) [Mass/Vol] 13.0 G/dL Low 14.0 - 18.0 G/dL AO Workflow SS Lymphocytes (Bld) [#/Vol] 1.1 103/mcL Normal 0.8 - 3.9 10^3/mcL AO Workflow SS Lymphocytes/100 WBC (Bld) 9.2 % Low 10.0 - 50.0 % AO Workflow SS Magnesium [Mass/Vol] 1.7 mg/dL Low 1.8 - 2 .4 mg/dL AO ADM SS MCH (RBC) [Entitic mass] 29.8 pg Normal 27.0 - 31.2 pg AO Workflow SS MCHC 33.7 G/dL Normal 31.8 - 35.4 G/dL AO Workflow SS MCV (RBC) [Entitic vol] 88.3 fL Normal 80.0 - 94.0 fL AO Workflow SS Monocytes (Bld) [#/Vol] 1.1 103/mcL High 0.2 - 1.0 10^3/mcL AO Workflow SS Monocytes/100 WBC (Bld) 8.5 % Normal 1.7 - 13.0 % AO Workflow SS Neutrophils (Bld) [#/Vol] 10.5 103/mcL High 2.9 - 6.2 10^3/mcL AO Workflow SS Neutrophils/100 WBC (Bld) 81.5 % High 37.0 - 80.0 % AO Workflow SS Platelet mean volume (Bld) [Entitic vol] 8.7 fL Normal 7.4 - 10.4 fL AO Workflow SS Platelets (Bld) [#/Vol] 242 103/mcL Normal 130 - 400 10^3/mcL AO Workflow SS Potassium [Moles/Vol] 4.0 mmol/L Normal 3.5 - 5.1 mmol/L AO ADM SS RBC (Bld) [#/Vol] 4.37 106/mcL Normal 4.04 - 6.1 3 10^6/mcL AO Workflow SS Sodium [Moles/Vol] 134 mmol/L Low 136 - 145 mmol/L AO ADM SS Urea nitrogen [Mass/Vol] 13 mg/dL Normal 7 - 18 mg/dL AO ADM SS Urea nitrogen/Creatinine [Mass ratio] 16 ratio Normal 7 - 27 ratio AO ADM SS WBC (Bld) [#/Vol] 12.9 103/mcL High 4.6 - 10.8 10^3/mcL AO Workflow SS LABORATORYOrdered By: Tonio Mancilla on 12-11-2023 M. pneumoniae IgG IA Ql (S) Negative Invalid Interpretation Code Auto Viro/Sero SS Comment on above: Interpretive Data: I NTERPRETATION OF MYCOPLASMA IgG BY EIA: Negative: No detectable M. pneumoniae IgG antibody. Positive: Mycoplasma pneumoniae IgG antibody Detected. Equivocal: Equivocal for IgG antibodies to Mycoplasma pneumoniae. Suggest repeat testing in 10-14 days. LABORATORYOrdered By: Gregory Hudson on 12-11-2023 M. pneumoniae IgM IA Ql (S) Negative 4 (12/11/23 5:32 AM) Normal Man Viro/Sero SS Comment on above: Interpretive Data: I NTERPRETATION OF MYCOPLASMA IgM: Negative: IgM to M. pneumoniae Absent, or at levels below the assay limit of detection. Positive: IgM to M. pneumoniae Present. Invalid: Test results are invalid due to invalid internal control. Assay was performed in duplicate. Repeat testing is suggested if clinically indicated. MGon 12-11-2023 Magnesium [Mass/Vol] 1.7 mg/dL Low 1.8-2.[address] [facility] Comment on above: Performed By: #### A DIFF, MG, CBC, BMP, GFR, ANEU #### [facility] [address] [place], [place] [address] MYCOon 12-11-2023 Mycoplasma IgM Negative Normal Comment on above: Result Comment: INTE RPRETATION OF MYCOPLASMA IgM: Negative: IgM to M. pneumoniae Absent, or at levels below the assay limit of detection. Positive: IgM to M. pneumoniae Present. Invalid: Test results are invalid due to invalid internal control. Assay was performed in duplicate. Repeat testing is suggested if clinically indicated. Performed By: #### M YCO ####[place] [address] No Panel Informationon 12-10 Legionella Urine Ag Presumptive negative for L. pneumophila serogroup 1 antigen in urine, suggesting no recent or current infection. Legionnaire's disease cannot be ruled out since other serogroups and species may also cause disease. [facility] XR CHEST 2 VIEWSon 4 XR CHEST 2 VIEWS ORIGINAL EXAMINATION: TWO XRAY VIEWS OF THE CHEST 12/11/2023 12:14 pm COMPARISON: 12/10/2023 HISTORY: ORDERING SYSTEM PROVIDED HISTORY: Reason for Exam: F/U PNA FINDINGS: Pulmonary vascular cephalization and veiling of the lower lobe vessels is seen. There are patchy areas of interstitial disease in both bases, unchanged. No cardiomegaly or pneumothorax is seen. Patient status post placement of a intrathecal lower thoracic spinal stimulator. IMPRESSION: 1. Mild pulmonary edema pattern. 2. Bibasilar interstitial infiltrates, unchanged. Interpreted by: Neil Cruz DO Preliminary Report By: Neil Cruz DO Electronically signed By Neil Cruz DO Dictated Date: 12/11/2023 12:35:46 PM Prelim Date: 12/11/2023 12:36:31 PM Sign Date: 12/11/2023 12:36:31 PM Ordering Provider: YOSI Mcclure .Auto Diffon 12-10-2023 Basophil, Absolute 0.0 10 3/mcL Normal 0.0-0.[address] [facility] Comment on above: Performed By: #### C BC, ADIFF, ANEU #### [address] [address] Basophils/100 WBC (Bld) 0.3 % Normal 0.0-2.5 Comment on above: Performed By: #### C BC, ADIFF, ANEU #### [address] [address] Eosinophil, Absolute 0.0 10 3/mcL Normal 0.0-0.4 [facility] Comment on above: Performed By: #### C BC, ADIFF, ANEU #### [address] [address] Eosinophils/100 WBC (Bld) 0.0 % Normal 0.0-7.0 Comment on above: Performed By: #### C BC, ADIFF, ANEU #### [address] [address] Lymphocyte, Absolute 1.4 10 3/mcL Normal 0.8-3.9 [facility] Comment on above: Performed By: #### C BC, ADIFF, ANEU #### [address] [address] Lymphocytes/100 WBC (Bld) 12.1 % Normal 10.0-50.0 Comment on above: Performed By: #### C BC, ADIFF, ANEU #### [address] [address] Monocyte, Absolute 1.1 10 3/mcL High 0.2-1.[address] [facility] Comment on above: Performed By: #### C BC, ADIFF, ANEU #### [address] [address] Monocytes/100 WBC (Bld) 9.3 % Normal 1.7-13.0 Comment on above: Performed By: #### C BC, KENIA, ANEU #### [facility] [address] [place], [place] [address] Neutrophils/100 WBC (Bld) 78.3 % Normal 37.0-80.0 Comment on above: Performed By: #### C BC, KENIA, ANEU #### [facility] [address] [place], [place] [address] .GFRon 12-10-2023 GFR 112 ml/min/1.73sqm Normal Comment on above: Result Comment: GFR Population mean for , Non- Americans Ages 20-29 = 116 mL/min/1.73 sq.m. Ages 30-39 = 107 mL/min/1.73 sq.m. Ages 40-49 = 99 mL/min/1.73 sq.m. Ages 50-59 = 93 mL/min/1.73 sq.m. Ages 60-69 = 85 mL/min/1.73 sq.m. Ages 70+ = 75 mL/min/1.73 sq.m. Chronic Kidney Disease: Less than 60 mL/min/1.73 square meters End Stage Renal Disease: Less than 15 mL/min/1.73 square meters Performed By: #### B MP, GFR ####[facility] [place], [place] [address] GFR Non- 92 ml/min/1.73sqm Normal Comment on above: Result Comment: GFR Population mean for , Non- Americans Ages 20-29 = 116 mL/min/1.73 sq.m. Ages 30-39 = 107 mL/min/1.73 sq.m. Ages 40-49 = 99 mL/min/1.73 sq.m. Ages 50-59 = 93 mL/min/1.73 sq.m. Ages 60-69 = 85 mL/min/1.73 sq.m. Ages 70+ = 75 mL/min/1.73 sq.m. Chronic Kidney Disease: Less than 60 mL/min/1.73 square meters End Stage Renal Disease: Less than 15 mL/min/1.73 square meters Performed By: #### B MP, GFR ####[facility] [address] [place], [place] [address] .NEUABSon 12-10-2023 Neutrophil, Absolute 9.4 10 3/mcL High 2.9-6.2 [facility] Comment on above: Performed By: #### C BC, ADIFF, ANEU #### [facility] [address] [place], [place] [address] BMPon 12-10-2023 BUN/Creatinine Ratio 14 ratio Normal 7-[address] [facility] Comment on above: Performed By: #### B MP, GFR ####[address] [place], [place] [address] Calcium [Mass/Vol] 8.6 mg/dL Normal 8.4-10.2 [facility] Comment on above: Performed By: #### B MP, GFR ####[address] [place], [place] [address] Chloride [Moles/Vol] 102 mmol/L Normal 98-[address] [facility] Comment on above: Performed By: #### B MP, GFR ####[address] [place], [place] [address] CO2 [Moles/Vol] 27 mmol/L Normal 22-29 Comment on above: Performed By: #### B MP, GFR ####[facility] [address] [place], [place] [address] Creatinine [Mass/Vol] 0.86 mg/dL Normal 0.70-1.30 [facility] Comment on above: Result Comment: Test ing performed on [employer] Dimension EXL analyzer using a modified kinetic Tiera technique. Performed By: #### B MP, GFR ####[facility] [address] [place], [place] [address] Electrolyte Balance 9.0 mEq/L Normal 4.0-15.0 [facility] Comment on above: Performed By: #### B MP, GFR ####[facility] [place], [place] [address] Glucose [Mass/Vol] 103 mg/dL Normal 70-105 [facility] Comment on above: Performed By: #### B MP, GFR ####[facility] [place], [place] [address] Potassium [Moles/Vol] 4.5 mmol/L Normal 3.5-5.1 [facility] Comment on above: Performed By: #### B MP, GFR ####[address] [place], [place] [address] Sodium [Moles/Vol] 138 mmol/L Normal 136-145 [facility] Comment on above: Performed By: #### B MP, GFR ####[address] [address] [place], [place] [address] Urea nitrogen [Mass/Vol] 12 mg/dL Normal 7-18 Comment on above: Performed By: #### B MP, GFR ####[place] [address] [place], [place] [address] CBCon 12-10-2023 Erythrocyte distribution width (RBC) [Ratio] 14.5 % Normal 11.5-14.5 Comment on above: Performed By: #### C KENIA JAY, ANEU #### [address] [address] Hematocrit (Bld) [Volume fraction] 39.6 % Low 42.0-52.0 Comment on above: Performed By: #### C KENIA JAY, ANEU #### [address] [address] Hgb 13.1 G/dL Low 14.0-18.0 Comment on above: Performed By: #### C KENIA JAY, ANEU #### [address] [address] MCH (RBC) [Entitic mass] 29.8 pg Normal 27.0-31.2 Comment on above: Performed By: #### C KENIA JAY, ANEU #### [address] [address] MCHC 33.0 G/dL Normal 31.8-35.4 Comment on above: Performed By: #### C KENIA JAY, ANEU #### [place] [address] MCV (RBC) [Entitic vol] 90.3 fL Normal 80.0-94.0 Comment on above: Performed By: #### C KENIA JAY, ANEU #### [place] [address] Platelet 249 10 3/mcL Normal 130-400 Comment on above: Performed By: #### C KENIA JAY, ANEU #### [place] [address] Platelet mean volume (Bld) [Entitic vol] 8.6 fL Normal 7.4-10.4 Comment on above: Performed By: #### C KENIA JAY, ANEU #### [place] [address] RBC 4.39 10 6/mcL Normal 4.04-6.13 Comment on above: Performed By: #### C KENIA JAY, ANEU #### [place] [address] WBC 12.0 10 3/mcL High 4.6-10.8 Comment on above: Performed By: #### C KENIA JAY, ANEU #### [place] [address] LABORATORYOrdered By: SYSTEM SYSTEM on 12-10-2023 Basophils (Bld) [#/Vol] 0.0 103/mcL Normal 0.0 - 0.2 10^3/mcL AO Workflow SS Basophils/100 WBC (Bld) 0.3 % Normal 0.0 - 2.5 % AO Workflow SS Calcium [Mass/Vol] 8.6 mg/dL Normal 8.4 - 10. 2 mg/dL AO ADM SS Chloride [Moles/Vol] 102 mmol/L Normal 98 - 10 7 mmol/L AO ADM SS CO2 [Moles/Vol] 27 mmol/L Normal 22 - 29 mmol/L AO ADM SS Creatinine [Mass/Vol] 0.86 mg/dL Normal 0.70 - 1.30 mg/dL AO ADM SS Comment on above: Interpretive Data: T esting performed on Siemens Dimension EXL analyzer using a modified kinetic Tiera technique. Electrolyte Balance 9.0 mEq/L Normal 4.0 - 15 .0 mEq/L AO ADM SS Eosinophil, Absolute 0.0 103/mcL Normal 0.0 - 0 .4 10^3/mcL AO Workflow SS Eosinophils/100 WBC (Bld) 0.0 % Normal 0.0 - 7.0 % AO Workflow SS Erythrocyte distribution width (RBC) [Ratio] 14.5 % Normal 11.5 - 14.5 % AO Workflow SS GFR/1.73 sq M.predicted among blacks MDRD (S/P/Bld) [Vol rate/Area] 112 ml/min/1.73sqm Invalid Interpretation Code AO Chemistry S Comment on above: Interpretive Data: GFR Population mean for , Non- Americans Ages 20-29 = 116 mL/min/1.73 sq.m. Ages 30-39 = 107 mL/min/1.73 sq.m. Ages 40-49 = 99 mL/min/1.73 sq.m. Ages 50-59 = 93 mL/min/1.73 sq.m. Ages 60-69 = 85 mL/min/1.73 sq.m. Ages 70+ = 75 mL/min/1.73 sq.m. Chronic Kidney Disease: Less than 60 mL/min/1.73 square meters End Stage Renal Disease: Less than 15 mL/min/1.73 square meters GFR/1.73 sq M.predicted among non-blacks MDRD (S/P/Bld) [Vol rate/Area] 92 ml/min/1.73sqm Invalid Interpretation Code AO Chemistry S Comment on above: Interpretive Data: GFR Population mean for , Non- Americans Ages 20-29 = 116 mL/min/1.73 sq.m. Ages 30-39 = 107 mL/min/1.73 sq.m. Ages 40-49 = 99 mL/min/1.73 sq.m. Ages 50-59 = 93 mL/min/1.73 sq.m. Ages 60-69 = 85 mL/min/1.73 sq.m. Ages 70+ = 75 mL/min/1.73 sq.m. Chronic Kidney Disease: Less than 60 mL/min/1.73 square meters End Stage Renal Disease: Less than 15 mL/min/1.73 square meters Glucose [Mass/Vol] 103 mg/dL Normal 70 - 105 mg/dL AO ADM SS Hematocrit (Bld) [Volume fraction] 39.6 % Low 42.0 - 52.0 % AO Workflow SS Hemoglobin (Bld) [Mass/Vol] 13.1 G/dL Low 14.0 - 18.0 G/dL AO Workflow SS Lymphocytes (Bld) [#/Vol] 1.4 103/mcL Normal 0.8 - 3.9 10^3/mcL AO Workflow SS Lymphocytes/100 WBC (Bld) 12.1 % Normal 10.0 - 50.0 % AO Workflow SS MCH (RBC) [Entitic mass] 29.8 pg Normal 27.0 - 31.2 pg AO Workflow SS MCHC 33.0 G/dL Normal 31.8 - 35.4 G/dL AO Workflow SS MCV (RBC) [Entitic vol] 90.3 fL Normal 80.0 - 94.0 fL AO Workflow SS Monocytes (Bld) [#/Vol] 1.1 103/mcL High 0.2 - 1.0 10^3/mcL AO Workflow SS Monocytes/100 WBC (Bld) 9.3 % Normal 1.7 - 13.0 % AO Workflow SS Neutrophils (Bld) [#/Vol] 9.4 103/mcL High 2.9 - 6.2 10^3/mcL AO Workflow SS Neutrophils/100 WBC (Bld) 78.3 % Normal 37.0 - 80.0 % AO Workflow SS Platelet mean volume (Bld) [Entitic vol] 8.6 fL Normal 7.4 - 10.4 fL AO Workflow SS Platelets (Bld) [#/Vol] 249 103/mcL Normal 130 - 400 10^3/mcL AO Workflow SS Potassium [Moles/Vol] 4.5 mmol/L Normal 3.5 - 5.1 mmol/L AO ADM SS RBC (Bld) [#/Vol] 4.39 106/mcL Normal 4.04 - 6.1 3 10^6/mcL AO Workflow SS Sodium [Moles/Vol] 138 mmol/L Normal 136 - 145 mmol/L AO ADM SS Urea nitrogen [Mass/Vol] 12 mg/dL Normal 7 - 18 mg/dL AO ADM SS Urea nitrogen/Creatinine [Mass ratio] 14 ratio Normal 7 - 27 ratio AO ADM SS WBC (Bld) [#/Vol] 12.0 103/mcL High 4.6 - 10.8 10^3/mcL AO Workflow SS XR CHEST 1 VIEWon 12-10-2023 XR CHEST 1 VIEW ORIGINAL EXAMINATION: ONE XRAY VIEW OF THE CHEST 12/10/2023 7:45 am COMPARISON: None. HISTORY: ORDERING SYSTEM PROVIDED HISTORY: Reason for Exam: hypoxia FINDINGS: Interstitial and alveolar haziness throughout the lungs bilaterally. No pneumothorax or large effusion. Central vascular prominence is noted. Possible small right effusion. IMPRESSION: Suspected small right effusion. Interstitial and alveolar opacities bilaterally could represent mild congestion/edema versus developing infectious or inflammatory process. Interpreted by: Edith Bob MD Preliminary Report By: Edith Bob MD Electronically signed By Edith Bob MD Dictated Date: 12/10/2023 8:01:07 AM Prelim Date: 12/10/2023 8:02:42 AM Sign Date: 12/10/2023 8:02:42 AM Ordering Provider: YOSI ARROYO Normal XR FLUORO > 2 HRS TECH TIMEo n 12-09-2023 XR FLUORO > 2 HRS TECH TIME ORIGINAL Images acquired, not reported on this accession number. Normal Laboratory - Drug toxicology Ordered By: Luis Lindquist on 04-06-2023 Amphetamines Ql (U) Negative <1000 ng/mL [facility] Benzodiazepines Ql (U) Negative < 200 ng/mL [facility] Cannabinoids Screen Ql (U) Negative < 50 ng/mL [facility] Cocaine Ql (U) Negative < 300 ng/mL [facility] Opiates Ql (U) Negative < 300 ng/mL [facility] No Panel InformationOrdered By: Luis Lindquist on 04-06-2023 MDMA (Ecstasy) Screen Negative < 500 ng/mL [facility] Urine Barbiturates Screen Negative < 200 ng/mL [facility] Urine Drug Screen Comment [facility] Comment on above: CONFIRMATORY TESTING FOR ALL POSITIVE URINE DRUG SCREENRESULTS WILL ONLY BE SENT OUT UPON PHYSICIAN ORDER. VISTA Urine Drug Screen methods provide only preliminaryanalytical test results. A more specific alternate chemicalmethod must be used in order to obtain a confirmedanalytical result. Gas chromatography/mass spectrometery(GC/MS) is the preferred confirmatory method. Clinicalconsideration and professional judgement should be appliedto any drug of abuse test result, particularly whenpreliminary positive results are used. URINE TCA TESTING MUST BE ORDERED SEPARATELY. USE TESTMNEMONIC: [facility] Urine Methadone Screen Negative < 300 ng/mL [facility] Urine phencyclidine (PCP) de tectionOrdered By: Luis Lindquist on 04-06-2023 Phencyclidine Ql (U) Negative < 25 ng/mL [facility] MRSAPCRon 07-30-2022 MRSA (PCR) Not detected Normal Not Detected [facility] ([place]) Comment on above: Result Comment: [place] [id number] Performed By: #### M RSAPCR #### [address] [address] MRSA PCR Int Normal [facility] ([place]) Comment on above: Result Comment: MRSA DNA not detected by Real-Time Polymerase Chain Reaction (PCR). A negative result may be due to intermittent colonization. Colonization may vary depending on patient treatment, patient status, or exposure to high-risk environments. As with all PCR based in vitro diagnostic tests, extremely low levels of target below the limit of detection of the assay may be detected, but results may not be reproducible. See Below Performed By: #### M RSAPCR #### [address] [address] Absolute lymphocyte countOrd ered By: Dr. Quevedo on 07-11-2022 Lymphocytes Auto (Unsp spec) [#/Vol] 2.37 10*3/uL 0.83-4.51 [facility] Basophil percentageOrdered B y: Dr. Quevedo on 07-11-2022 Basophils/100 WBC (Bld) 0.7 % 0-1 [facility] Eosinophils/100 WBC (Bld) 2.8 % 0-5 [facility] Neutrophils (Bld) [#/Vol] 4.7 10*3/uL 2.0-7.7 [facility] Neutrophils/100 WBC (Bld) 55.7 % 47-70 [facility] WBC (Bld) [#/Vol] 8.5 10*3/uL 4.4-11.0 [facility] Blood erythrocytes count (nu mber/volume)Ordered By: Dr. Quevedo on 07-11-2022 RBC (Bld) [#/Vol] 4.32 10*6/uL 4.6-6.2 [facility] Blood hemoglobin measurement (mass/volume)Ordered By: Dr. Quevedo on 07-11-2022 Hemoglobin (Bld) [Mass/Vol] 13.8 g/dL 13.0-16.5 [facility] Blood lymphocytes/100 leukoc ytesOrdered By: Dr. Quevedo on 07-11-2022 Lymphocytes/100 WBC (Bld) 28.0 % 19-41 [facility] Blood monocytes/100 leukocyt esOrdered By: Dr. Quevedo on 07-11-2022 Monocytes/100 WBC (Bld) 12.4 % 0-10 [facility] Blood platelet mean volumeOr dered By: Dr. Quevedo on 07-11-2022 Platelet mean volume (Bld) [Entitic vol] 10.1 fL 6.2-12.0 [facility] Determination of erythrocyte mean corpuscular volume (MCV)Ordered By: Dr. Quevedo on 07-11-2022 MCV (RBC) [Entitic vol] 97.7 fL 80-94 [facility] Hematocrit Auto (Bld) [Volum e fraction]Ordered By: Dr. Quevedo on 07-11-2022 Hematocrit (Bld) [Volume fraction] 42.2 % 40-54 [facility] Laboratory - Hematology and Cell countsOrdered By: Dr. Quevedo on 07-11-2022 Erythrocyte distribution width (RBC) [Entitic vol] 44.7 fL 35.1-43.9 [facility] Erythrocyte distribution width (RBC) [Ratio] 12.4 % 11.6-14.6 [facility] Immature granulocytes/100 WBC (Bld) 0.400 % 0.0-0.9 [facility] Comment on above: IG% - Immature Granu locytes (promyelocytes, myelocytes and metamyelocytes) > 1% indicates that a LEFT SHIFT is Present. MCH (RBC) [Entitic mass] 31.9 pg 27.0-32.0 [facility] Nucleated RBC/100 WBC (Bld) [Ratio] 0 % 0-5 [facility] MCHC Auto (RBC) [Mass/Vol]Or dered By: Dr. Quevedo on 07-11-2022 MCHC (RBC) [Mass/Vol] 32.7 g/dL 32-36 [facility] Platelets bldOrdered By: Dr. Quevedo on 07-11-2022 Platelets (Bld) [#/Vol] 284 10*3/uL 150-450 [facility] Basophil percentageOrdered B y: Dr. Nielson on 06-03-2022 Chloride [Moles/Vol] 110 mmol/L 98-107 [facility] Glucose [Mass/Vol] 74 mg/dL 74-106 [facility] Potassium [Moles/Vol] 4.2 mmol/L 3.5-5.1 [facility] Sodium [Moles/Vol] 142 mmol/L 136-145 [facility] WBC (Bld) [#/Vol] 8.5 10*3/uL 4.4-11.0 [facility] Blood erythrocytes count (nu mber/volume)Ordered By: Dr. Nielson on 06-03-2022 RBC (Bld) [#/Vol] 4.95 10*6/uL 4.6-6.2 [facility] Blood hemoglobin measurement (mass/volume)Ordered By: Dr. Nielson on 06-03-2022 Hemoglobin (Bld) [Mass/Vol] 15.8 g/dL 13.0-16.5 [facility] Blood platelet mean volumeOr dered By: Dr. Nielson on 06-03-2022 Platelet mean volume (Bld) [Entitic vol] 10.3 fL 6.2-12.0 [facility] Determination of erythrocyte mean corpuscular volume (MCV)Ordered By: Dr. Nielson on 06-03-2022 MCV (RBC) [Entitic vol] 96.2 fL 80-94 [facility] Hematocrit Auto (Bld) [Volum e fraction]Ordered By: Dr. Nielson on 06-03-2022 Hematocrit (Bld) [Volume fraction] 47.6 % 40-54 [facility] Laboratory - Chemistry and C hemistry - challengeOrdered By: Dr. Nielson on 06-03-2022 CO2 [Moles/Vol] 27.0 mmol/L 21.0-32.0 [facility] Urea nitrogen/Creatinine [Mass ratio] 24.2 mg/mg 10-20 [facility] Laboratory - Hematology and Cell countsOrdered By: Dr. Nielson on 06-03-2022 Erythrocyte distribution width (RBC) [Entitic vol] 43.3 fL 35.1-43.9 [facility] Erythrocyte distribution width (RBC) [Ratio] 12.5 % 11.6-14.6 [facility] MCH (RBC) [Entitic mass] 31.9 pg 27.0-32.0 [facility] MCHC Auto (RBC) [Mass/Vol]Or dered By: Dr. Nielson on 06-03-2022 MCHC (RBC) [Mass/Vol] 33.2 g/dL 32-36 [facility] No Panel InformationOrdered By: Dr. Nielson on 06-03-2022 Estimated GFR (MDRD) Amer 161 mL/min >60 [facility] Comment on above: GFR Calc Estimated GFR (MDRD) Non-Af Amer 133 mL/min >60 [facility] Comment on above: Non- GFR Calc Prostate Specific Antigen Screen 0.79 ng/mL 0.00-4.00 [facility] Comment on above: This test was perfor med using the TPSA assay method for theDimension chemistry system. Values obtained with differentassay methods cannot be used interchangably.When changing PSA assays in the course of monitoring apatient, additional sequential testing should be carriedout to confirm baseline values. Platelets bldOrdered By: Dr. Nielson on 06-03-2022 Platelets (Bld) [#/Vol] 406 10*3/uL 150-450 [facility] Serum or plasma calcium hemalatha urement (mass/volume)Ordered By: Dr. Nielson on 06-03-2022 Calcium [Mass/Vol] 8.9 mg/dL 8.5-10.1 [facility] Serum or plasma creatinine m easurement (mass/volume)Ordered By: Dr. Nielson on 06-03-2022 Creatinine [Mass/Vol] 0.66 mg/dL 0.70-1.30 [facility] Comment on above: The validity of the calculated GFR & GFRAA in patients over 70 years has not been determined. Clinical correlation is essential. Serum or plasma urea nitroge n measurement (mass/volume)Ordered By: Dr. Nielson on 06-03-2022 Urea nitrogen [Mass/Vol] 16 mg/dL 7-18 [facility] Thin prep Papanicolaou smear with manual screeningOrdered By: Dr. Nielson on 06-03-2022 Thin prep Papanicolaou smear with manual screening 5 5-15 [facility] Final Surgical Pathology Rep [facility] 09-03-2021 Final Surgical Pathology Report . Pathology Reports Accession: Collected Date/Time: Received Date/Time: Pathologist: [id number] 08/28/2021 08:23 EDT 08/29/2021 08:23 EDT BRENDA FORBES MD Final Surgical Pathology Report DIAGNOSIS: SOFT TISSUE MASS, LEFT ANKLE - DEEP BENIGN FIBROUS HISTIOCYTOMA Comment: Immunostain for CD31 highlights the vascular network. CD68 shows many histiocytes within the lesion. [place]-1 and Keratin are negative. These features support the above diagnosis. The le neli appears to be completely excised. Intradepartmental review: Dr. Rob. COMMENT: [facility] - [id number] CLINICAL INFORMATION: SOFT TISSUE MASS, LEFT LOWER EXTREMITY Procedure: EXCISION SOFT TISSUE MASS, LEFT LOWER EXTREMITY SPECIMEN: A SOFT TISSUE MASS, LEFT ANKLE GROSS DESCRIPTION: A. Received in formalin, labeled with the patients name, Case #[id number], and left ankle soft tissue mass is a unoriented skin excision measuring 2.7 x 1.6 and excised to a depth of 1.5 cm. Be neath the skin surface is a yellow firm soft tissue. Sectioning reveals yellow chalky cut foreign faces. TS -5 Dictated by RYAN MORALES MICROSCOPIC DESCRIPTION: Slides reviewed. Electronically Signed by Pathology Report verified by [facility] Electronically signed by BRENDA FORBES Sign out Date: 09/03/2021 11:23 Performing Lab: [facility], [address] [place] [id number] [place] [address] Normal [facility] ([place]) YANIV by IFAon 11-26-2020 YANIV Pattern ANANOT Normal [facility] Reference Lab Comment on above: Performed By: #### C CP, ANAIFS #### [facility] Immun[facility] [address] [phone] #### HBSAG, AHCV, RF, AHBSQ #### [facility] Routine Lab [address] [phone] YANIV Titer Normal Negative [facility] Reference Lab Comment on above: Result Comment: Nega tive Normal range : negatie at <1:80 serum dilution. Performed By: #### C CP, ANAIFS #### [facility] [address] [place] [phone] #### HBSAG, AHCV, RF, AHBSQ #### [facility] Routine Lab [address] [phone] Nuclear Ab IF (S) [Titer] Negative Normal Negative [facility] Reference Lab Comment on above: Performed By: #### C CP, ANAIFS #### [facility] [address] [phone] #### HBSAG, AHCV, RF, AHBSQ #### [facility] Routine Lab [address] [place] [phone] CCP Antibody, IgGon 08-30-20 21 CCP Antibody, IgG <15 Normal <20 [facility] Reference Lab Comment on above: Performed By: #### C CP, ANAIFS #### [facility] [address] [phone] #### HBSAG, AHCV, RF, AHBSQ #### [facility] Routine Lab [address] [phone] Hepatitis B Surf. Agon 11-25 Hepatitis B Surf. Ag NEGAT Normal Negative [facility] Reference Lab Comment on above: Performed By: #### C CP, ANAIFS #### [facility] [address] [address] #### HBSAG, AHCV, RF, AHBSQ #### [facility] Routine Lab [address] [phone] Hepatitis C Ab IAon 11-26-19 21 Hepatitis C Ab IA NEGAT Normal Negative [facility] Reference Lab Comment on above: Performed By: #### C CP, ANAIFS #### [facility] [address] [phone] #### HBSAG, AHCV, RF, AHBSQ #### [facility] Routine Lab [address] [place] [phone] HepB SurfaceAb,Quanton 11-24 HepB SurfaceAb,Quant <8.00 Normal <8.00 [facility] Reference Lab Comment on above: Performed By: #### C CP, ANAIFS #### [facility] [address] [phone] #### HBSAG, AHCV, RF, AHBSQ #### [facility] Routine Lab [address] [phone] Rheumatoid Factoron 11-25-19 21 Rheumatoid Factor <10 Normal <16 [facility] Reference Lab Comment on above: Performed By: #### C CP, ANAIFS #### [facility] [address] [phone] #### HBSAG, AHCV, RF, AHBSQ #### [facility] Routine Lab [address] [place] [address] Office Visiton 10-20-2016 Documentation of current medications (procedure) Done Invalid Interpretation Code [facility] Work Phone: Smoking cessation education (procedure) yes Invalid Interpretation Code [facility] Work Phone: Tobacco smoking status NHIS Unknown Invalid Interpretation Code [facility] Work Phone: [phone] Tobacco use [facility] Current every day smoker Invalid Interpretation Code [facility] Work Phone: [phone] Office Visiton 12-05-2015 Protein mass conc Done [facility] Work Phone: [phone] Tobacco smoking status NHIS Unknown [facility] Work Phone: [phone] Tobacco smoking status NHIS Current every day smoker [facility] Work Phone: [phone] Vital Signs Date Time Vital Sign Value Performing Clinician Facility 10-04-2024 08:00-0400 Body height 172.72 cm Floridalma Sanchez MA [facility], [facility]. 10-04-2024 08:00-0400 Body mass index (BMI) [Ratio] 33.35 kg/m2 Floridalma Sanchez MA [facility], [facility].; [facility]. 10-04-2024 08:00-0400 Body surface area Derived from formula 2.13 m2 Floridalma Sanchez MA [facility], [facility].; [employer] [facility]. 10-04-2024 08:00-0400 Body weight 99.48 kg Floridalma Sanchez MA [facility], [facility].; [place] [email or web address] [facility], [facility]. 10-04-2024 08:00-0400 Diastolic blood pressure 73 mm[Hg] Floridalma Sanchez MA [facility], [facility].; [employer] [facility]. Comment on above: Patient Position: Sitting; Cuff Location : Left Arm; Cuff Size: Standard 10-04-2024 08:00-0400 Heart rate 74 /min Floridalma Sanchez MA [email or web address] [email or web address] [facility].; [employer]. Comment on above: Pattern: Regular 10-04-2024 08:00-0400 Systolic blood pressure 122 mm[Hg] Floridalma Sanchez MA [facility], [facility].; [employer]. Comment on above: Patient Position: Sitting; Cuff Location : Left Arm; Cuff Size: Standard 07-19-2024 15:01-0400 Body height 172.72 cm Sunitha Rodriguez PA-C Work Phone: [facility]; [facility] 07-19-2024 15:01-0400 Body mass index (BMI) [Ratio] 33.15 kg/m2 Sunitha Nikki Rodriguez PA-C Work Phone: [facility]; [email or web address] [email or web address] [facility] 07-19-2024 15:01-0400 Body surface area Derived from formula 2.12 m2 Sunitha Nikki Rodriguez PA-C Work Phone: [facility] [employer]; [place] [email or web address] [facility] 07-19-2024 15:01-0400 Body weight 98.88 kg Sunitha Nikki Rodriguez PA-C Work Phone: [place] [employer]; [employer] [facility] 07-19-2024 15:01-0400 Diastolic blood pressure 86 mm[Hg] Sunitha J Rodriguez PA-C Work Phone: [employer]; [employer] Comment on above: Patient Position: Sitting; Cuff Location : Left Arm; Cuff Size: Standard 07-19-2024 15:01-0400 Heart rate 79 /min Sunitha Nikki Rodriguez PA-C Work Phone: [facility]; [employer] Comment on above: Pattern: Regular 07-19-2024 15:01-0400 Systolic blood pressure 134 mm[Hg] Sunitha J Rodriguez PA-C Work Phone: [facility]; [employer] Comment on above: Patient Position: Sitting; Cuff Location : Left Arm; Cuff Size: Standard 12-12-2023 11:33-0400 Body temperature 97.52 [degF] LUIS LUCIANO DO [facility] 12-12-2023 11:33-0400 Diastolic Blood Pressure Non-Invasive 74 mm[Hg] LUIS LUCIANO DO [facility] 12-12-2023 11:33-0400 Heart rate 69 /min LUIS LUCIANO DO [facility] 12-12-2023 11:33-0400 Reason For Taking VItal Signs LUIS LUCIANO DO [facility] 12-12-2023 11:33-0400 Respiratory rate 18 /min LUIS LUCIANO DO [facility] 12-12-2023 11:33-0400 Systolic Blood Pressure Non-Invasive 111 mm[Hg] LUIS LUCIANO DO [facility] 12-12-2023 10:32-0400 Heart rate 69 /min LUIS LUCIANO DO [facility] 12-12-2023 10:32-0400 Respiratory rate 18 /min LUIS LUCIANO DO [facility] 12-12-2023 06:53-0400 Heart rate 82 /min LUIS LUCIANO DO [facility] 12-12-2023 06:20-0400 Heart rate 76 /min LUIS LUCIANO DO [facility] 12-12-2023 06:20-0400 Respiratory rate 20 /min LUIS LUCIANO DO [facility] 12-12-2023 06:15-0400 Body temperature 97.88 [degF] LUIS LUCIANO DO [facility] 12-12-2023 06:15-0400 Diastolic Blood Pressure Non-Invasive 63 mm[Hg] LUIS LUCIANO DO [facility] 12-12-2023 06:15-0400 Heart rate 75 /min LUIS LUCIANO DO [facility] 12-12-2023 06:15-0400 Reason For Taking VItal Signs LUIS LUCIANO DO [facility] 12-12-2023 06:15-0400 Systolic Blood Pressure Non-Invasive 104 mm[Hg] LUIS LUCIANO DO [facility] 12-12-2023 03:53-0400 Body temperature 97.7 [degF] LUIS LUCIANO DO [facility] 12-12-2023 03:53-0400 Diastolic Blood Pressure Non-Invasive 52 mm[Hg] LUIS LUCIANO DO [facility] 12-12-2023 03:53-0400 Heart rate 72 /min LUIS LUCIANO DO [facility] 12-12-2023 03:53-0400 Reason For Taking VItal Signs LUIS LUCIANO DO [facility] 12-12-2023 03:53-0400 Systolic Blood Pressure Non-Invasive 105 mm[Hg] LUIS LUCIANO DO [facility] 12-11-2023 06:15-0400 Body temperature 99.5 [degF] LUIS LUCIANO DO [facility] 12-10-2023 12:19-0400 Heart rate 80 /min LUIS LUCIANO DO [facility] 12-10-2023 00:21-0400 Body temperature 99.5 [degF] LUIS LUCIANO DO [facility] 12-09-2023 15:42-0400 Body temperature 96.44 [degF] LUIS LUCIANO DO [facility] 12-09-2023 14:04-0400 Body height 172.7 cm LUIS LUCIANO DO [facility] 12-09-2023 14:04-0400 Body weight 100 kg LUIS LUCIANO DO [facility] 12-09-2023 14:04-0400 Body weight 33.53 kg/m2 LUIS LUCIANO DO [facility] 12-09-2023 12:30-0400 Body temperature 97.7 [degF] LUIS LUCIANO DO [facility] 12-09-2023 12:25-0400 Respiratory Rate - Anes 0 br/min LUIS LUCIANO DO [facility] 12-09-2023 12:20-0400 Respiratory Rate - Anes 0 br/min LUIS LUCIANO DO [facility] 12-09-2023 12:15-0400 Respiratory Rate - Anes 0 br/min LUIS LUCIANO DO [facility] 12-09-2023 10:45-0400 Body temperature 98.6 [degF] LUIS LUCIANO DO [facility] 07-12-2022 08:56-0400 Body temperature 97.3 [degF] [facility] 07-12-2022 08:56-0400 Diastolic blood pressure 82 mm[Hg] [facility] 07-12-2022 08:56-0400 Heart rate 63 /min [facility] 07-12-2022 08:56-0400 Respiratory rate 18 /min [facility] 07-12-2022 08:56-0400 SaO2% (BldA) [Mass fraction] 96 % [facility] 07-12-2022 08:56-0400 Systolic blood pressure 119 mm[Hg] [facility] 07-12-2022 08:13-0400 Inhaled oxygen flow rate 2 L/min [facility] 07-12-2022 05:54-0400 Body height 172.72 cm [facility] 07-12-2022 05:54-0400 Body mass index (BMI) [Ratio] 31.6 kg/m2 [facility] 07-12-2022 05:54-0400 Body weight 94.37 kg [facility] 06-25-2022 16:51-0400 Body temperature 97.6 [degF] [facility] 06-25-2022 16:51-0400 Diastolic blood pressure 95 mm[Hg] [facility] 06-25-2022 16:51-0400 Heart rate 77 /min [facility] 06-25-2022 16:51-0400 Respiratory rate 18 /min [facility] 06-25-2022 16:51-0400 SaO2% (BldA) [Mass fraction] 97 % [facility] 06-25-2022 16:51-0400 Systolic blood pressure 144 mm[Hg] [facility] 06-25-2022 14:32-0400 Body mass index (BMI) [Ratio] 30.8 kg/m2 [facility] 06-25-2022 14:32-0400 Body weight 92 kg [facility] 12-05-2015 08:20-0400 Height 170.18 cm [facility] Work Phone: 10-10-2015 10:46-0400 BMI (Body Mass Index) 0.28 kg/m2 [facility] Work Phone: 10-10-2015 10:46-0400 Weight 83.92 kg [facility] Work Phone: Encounters Encounter Date Encounter Type Care Provider Facility Start: 01-20-2025 End: 01-20-2025 ambulatory SUNITHA PAC [facility]ER [facility] Start: 11-03-2024 ambulatory SUNITHA PAC JENNIFER [facility] Start: 10-31-2024 End: 10-31-2024 Orders Sunitha Rodriguez PA-C Work Phone: [employer]. Start: 10-25-2024 Encounter for other preprocedural examination Julia Romero [facility] Start: 10-21-2024 End: 10-21-2024 ambulatory Sunitha Rodriguez PA Work Phone: -Laboratory Start: 10-21-2024 End: 10-21-2024 Patient encounter procedure Julia Romero PA -Laboratory Work Phone: Start: 10-21-2024 End: 10-21-2024 ambulatory Sunitha Rodriguez [facility] Start: 10-04-2024 End: 10-04-2024 Office outpatient visit 15 minutes Sunitha Rodriguez PA-C Work Phone: [employer]. Start: 10-04-2024 End: 10-04-2024 Preprocedural examination done Sunitha Rodriguez PA-C Work Phone: [employer]; [employer]. Start: 09-19-2024 End: 09-19-2024 ambulatory SUNITHA PAC RODRIGUEZ [facility] Start: 09-15-2024 End: 09-15-2024 ambulatory RAMY MONTOYA [facility] Start: 07-26-2024 End: 07-26-2024 Patient encounter procedure Sunitha Rodriguez PA-C Work Phone: [employer]. Start: 07-19-2024 End: 07-19-2024 Office outpatient new 45 minutes Sunitha Rodriguez PA-C Work Phone: [employer]. 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 Facility:[facility] Start: 12-04-2023 ambulatory [facility] Start: 04-06-2023 End: 04-06-2023 ambulatory [facility] Work Phone: Start: 04-06-2023 End: 04-06-2023 Patient encounter procedure [facility]Laboratory, [place] Work Phone: Start: 07-11-2022 End: 07-12-2022 Evaluation and management of inpatient [facility]-Medical Surgical 3 Start: 07-11-2022 End: 07-12-2022 observation encounter [facility] Work Phone: Start: 07-10-2022 Patient encounter procedure [facility]-Radiology, [facility] Start: 06-25-2022 End: 06-25-2022 Admission to same day surgery center [facility] Start: 06-12-2022 End: 06-12-2022 ambulatory [facility] Work Phone: Start: 06-12-2022 End: 06-12-2022 Patient encounter procedure [facility]-Cat Scan, [facility] Start: 06-03-2022 End: 06-03-2022 ambulatory [facility] Work Phone: Start: 06-03-2022 End: 06-03-2022 Patient encounter procedure [facility]-Laboratory Follow-up encounter Sunitha joseph PA-C Work Phone: [facility], [employer] [facility] Procedures Date Procedure Procedure Detail Performing Clinician Start: 05-10-2024 PSA screening ANANYA JACKSON Comment on above: Performed By: #### 2 [id number] #### [facility],[address] [place] [address] Start: 07-12-2022 Cystoscopy and retro grade pyelography Start: 07-12-2022 Fluoroscopic guidance Start: 07-11-2022 Diagnostic radiograp hy of abdomen Start: 07-10-2022 Diagnostic radiograp hy of abdomen Start: 06-25-2022 Diagnostic radiograp hy of abdomen Start: 06-12-2022 Computed tomography of abdomen and pelvis with intravenous contrast Start: 03-30-2021 End: 03-30-2021 Total replacement of hip Floridalma Prosper LYNN Comment on above: 2022 Bypass of stomach LUIS JOEL TTS DO Cholecystectomy LUSI WATT S DO Neurostimulation of spinal cord tissue LUIS LUCIANO DO Comment on above: TRIAL Structure of wisdom tooth (body structure) LUIS LUCIANO DO Tonsillectomy LUIS LUCIANO DO Total replacement of hip TMAI GAY LUCIANO DO Comment on above: MARCIA Plan of Treatment Date Care Activity Detail Author Start: 01-17-2025 Patient encounter procedure Medical; PHYSICAL - [facility] [employer]. Start: 17-Jan-2025 11:00-04:00 RICARDO Rodriguez Appointment Request [employer]. Start: 01-10-2025 Blood count complete auto&auto difrntl wbc CBC, PLATELETS & AUT DIFF (M) (99800) Start: 10-Jan-2025 10:50-04:00 Request [employer].; [employer] Start: 01-10-2025 Assay of prostate specific antigen total PSA TOTAL (PROSTATE SPECIFIC ANTIGEN) ([id number]) Start: 10-Jan-2025 10:50-04:00 Request [employer].; [employer] Start: 01-10-2025 Lipid panel LIPID PANEL ([id number]) Start: 10-Jan-2025 10:50-04:00 Request [employer].; [employer]. Start: 01-10-2025 Comprehensive metabolic panel CMP w/ GFR* ([id number]) Start: 10-Jan-2025 10:50-04:00 Request [employer]; [facility]. Start: 01-10-2025 Nursing evaluation of patient and report Medical; Nurse visit - fasting labs RJB [facility] Start: 10-Jan-2025 08:40-04:00 NURSE, FLOAT Appointment Request [facility] Start: 07-12-2022 Patient discharge [facility] Start: 07-11-2022 Admission procedure [facility] Start: 07-11-2022 Following clinical pathway protocol [facility] Start: 07-11-2022 Collection of urine and strain for calculus [facility] Start: 06-25-2022 Patient discharge [facility] Start: 06-25-2022 Ambulation without limitation [facility] Start: 06-25-2022 Medication education [facility] Start: 06-25-2022 Taking patient vital signs [facility] Start: 06-25-2022 [facility] Start: 06-25-2022 Anes lithotrp xtrcorp shock wave w/o water bath ANESTH KIDNEY STONE DESTRUCT [facility] Start: 06-25-2022 Cysto w/insert ureteral stent CYSTOSCOPY AND TREATMENT [facility] Start: 06-25-2022 Lithotripsy xtrcorp shock wave FRAGMENTING OF KIDNEY STONE [facility] Start: 10-20-2016 End: 10-20-2016 X-ray exam, knee, 4 or more X-Ray, Knee [facility] Work Phone: Start: 10-24-2015 End: 10-24-2015 Physical Therapy General Physical Therapy General Rehab [facility], [address] [place] [address], [id number] [facility] Work Phone: Start: 10-10-2015 End: 10-10-2015 X-ray exam, knee, 4 or more X-Ray, Knee [facility] Work Phone: Patient referral [facility] Work Phone: Immunizations Immunization Date Immunization Notes Care Provider Betsy denny 02-11-2024 influenza, seasonal, injectable, preservative free Sunitha Rodriguez PA-C [facility] Phone[facility] 08-05-2023 zoster vaccine recombinant LUIS LUCIANO DO [facility] 08-05-2023 zoster vaccine, live Sunitha Rodriguez PA-C Work Phone: [facility] 06-02-2023 COVID-Pfizer (30 MCG/0.3 ML) Sunitha Rodriguez PA-C Work Phone: [facility] 06-02-2023 pneumococcal 20-mark nt conjugate vaccine LUIS ADAMTS DO [facility] 06-02-2023 Pneumococcal conjuga te, 20 valent (PCV20) Sunitha Rodriguez PA-C Work Phone: [facility] 06-02-2023 SARS-CoV-2 (COVID-19 ) [id number] LUIS LUCIANO DO [facility] 06-02-2023 zoster vaccine recombinant LUIS LUCIANO DO [facility] 06-02-2023 zoster vaccine, live Sunitha Rodriguez PA-C Work Phone: [facility] 02-05-2023 influenza virus vaccine, unspecified formulation LUIS LUCIANO DO [facility] 02-05-2023 influenza, injectabl e, quadrivalent, contains preservative Sunitha Rodriguez PA-C Work Phone: [facility] 02-05-2023 tetanus toxoid, redu jordan diphtheria toxoid, and acellular pertussis vaccine, adsorbed LUIS LUCIANO DO [facility] 04-01-2022 Covid Pfizer Bivalen t Booster [facility] 04-01-2022 COVID-Pfizer (30 MCG/0.3 ML) Sunitha Rodriguez PA-C Work Phone: [facility] 04-01-2022 influenza virus vaccine, unspecified formulation LUIS LUCIANO DO [facility] 04-01-2022 influenza, injectabl e, quadrivalent, preservative free [facility] 04-01-2022 influenza, seasonal, injectable [facility] 11-21-2021 Covid (Moderna) [facility] 02-05-2021 influenza virus vaccine, unspecified formulation LUIS LUCIANO DO [facility] 02-05-2021 influenza, injectabl e, quadrivalent, preservative free Sunitha Rodriguez PA-C Work Phone: [facility] 06-28-2020 Covid (Pratik & Pratik) [facility] 12-13-2019 influenza virus vaccine, unspecified formulation LUIS LUCIANO DO [facility] 01-19-2019 influenza virus vaccine, unspecified formulation LUIS LUCIANO DO [facility] 01-19-2019 influenza, injectabl e, quadrivalent, contains preservative Sunitha Rodriguez PA-C Work Phone: [facility] 12-29-2015 influenza virus vaccine, unspecified formulation LUIS LUCIANO DO [facility] 12-29-2015 influenza, seasonal, injectable, preservative free Sunitha Rodriguez PA-C Work Phone: [facility] Payers Date Payer Category Payer Medicare [id number] 2024 Self-pay [id number] 2023 [facility] ( and others) [id number] 2023 Medicare [id number] 1970 Unknown [id number] 1970 Unknown [id number] 1970 Unknown [id number] 1970 Unknown [id number] 1968 Unknown [id number] 1968 Unknown [id number] 1968 Unknown [id number] 1970 Unknown [id number] Unknown Unknown [id number] Social History Date Type Detail Facility [facility] Work Phone: Start: 1970 Sex Assigned At Male [facility] [place] [facility] Start: 07-11-2022 End: 07-11-2022 Tobacco smoking status NHIS Unknown if ever smoked [facility] Start: 12-07-2023 Tobacco smoking status Heavy t obacco smoker (finding) [facility] Alcohol Use: Alcohol Use: ; Occasional alcohol use. [facility]; [employer] Caffeine Use Caffeine Use [facility]; [employer] Tobacco Use: Tobacco Use: ; F ormer smoker. [employer]; [employer] Ex-smoker [place] [employer]; [employer] Work Phone: Start: 07-11-2022 [facility] NEGATED: Highlighted row No Social History Information Available No Social History Information Available [employer]; [employer] Work Phone: Medical Equipment Procedure Code Equipment Code Equipment Origin al Text Equipment Identifier Dates Lithotripsy, ESWL STENT,URETERAL PIGTAIL [id number] FDA Start: 06-25-2022 Lithotripsy, ESWL STENT,URETERAL PIGTAIL [id number] FDA Start: 06-25-2022 Lithotripsy, ESWL STENT,URETERAL PIGTAIL [id number] FDA Start: 06-25-2022 Goals Date Patient Goal Desired Activity /State Functional Status Date Assessment Result Facility 12-12-2023 Functional Status 7am-11am [facility] 12-12-2023 Functional Status [facility] 12-12-2023 Functional Status Repositions self [facility] 12-12-2023 Functional Status [facility] 12-11-2023 Functional Status [facility] 12-11-2023 Functional Status Room check performed [facility] 12-11-2023 Functional Status [facility] 12-11-2023 Functional Status Supervised [facility] 12-11-2023 Functional Status [facility] 12-10-2023 Functional Status Reason SCD Rem xavier/Off Patient refused [facility] 12-10-2023 Functional Status Lunch Percent 75 [facility] 12-10-2023 Functional Status Min A [facility] 12-10-2023 Functional Status Home managemen t, Personal ADL, Social participation [facility] 12-10-2023 Functional Status [facility] 12-09-2023 Functional Status Sensory Deficits None A [facility] 12-09-2023 Functional Status ice on [facility] 12-09-2023 Functional Status Maintained [facility] 07-12-2022 Functional status Ambulates [facility] Work Phone: 06-25-2022 Functional status Patient Activi ty Ambulates;Bathroom Privilege [facility] Work Phone: Mental Status Date Assessment Result Facility 12-12-2023 Mental Status Oriented x 4 [facility] 12-11-2023 [facility] Status [facility] 12-10-2023 Mental Status [facility] 07-12-2022 Cognitive function Voice/Name [facility] Work Phone: 07-11-2022 Cognitive function Cooperative [facility] Work Phone: 06-25-2022 Cognitive function Voice/Name [facility] Work Phone: Clinical Notes 07-11-2022 to 06-13-2024 Note Date & Type Note Facility 06-13-2024 Note Discharge Instructio ns Discharge Summary [address] [address] [id number] 06/10/2024 Patient: MICHAEL PARIKH Sex: Male : 1970 Age: 54y Thank you for visiting [facility]. You have been evaluated today by Jason Child D.O. for the following condition(s): Principal Diagnosis Acute sialoadenitis (Sialoadenitis left submandibular gland without obstructing stone and without abscess.). INSTRUCTIONS Take Tylenol (Acetaminophen) or Motrin (Ibuprofen) as needed for fever control. Take medication according to label instructions. Drink plenty of fluids. (Take medication as prescribed. Arrange follow up with [facility]. See below.). Warnings: GENERAL WARNINGS: Return or contact your physician immediately if your condition worsens or changes unexpectedly, if not improving as expected, or if other problems arise. Prescription Medications: oxycodone-acetaminophen 5 mg-325 mg tablet: Take 1 tablet by mouth four times a day for 10 days, dispense 40 tablet. Refills 0. Pharmacy: [id number] [address] [place] [id number]. clindamycin HCl 300 mg capsule: Take 1 capsule by mouth four times a day for 10 days, dispense 40 capsule. Refills 0. Pharmacy: [id number] [address] [id number]. 1 of 5 Discharge Instructions oxycodone-acetaminophen 5 mg-325 mg tablet: Take 1 tablet by mouth every six hours as needed for pain for 3 days, dispense 12 tablet. Refills 0. Pharmacy: [facility]. - [address] [place] [address]. clindamycin HCl 300 mg capsule: Take 1 capsule by mouth four times a day for 10 days, dispense 40 capsule. Refills 0. Pharmacy: [facility]. - [address] [place] [address]. Understanding of the discharge instructions verbalized by patient and family. Follow-up with: [facility], Phone: [phone], [place], [place] [address]. Follow up in four days. Call for an appointment. Reason for referral: evaluation and treatment. Summary of care provided to patient and family. (Left submandibular salivary gland appears to be infected. No abscess.). 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 [address] [place] [address] [id number] 06/10/2024 Patient: MICHAEL PARIKH Sex: Male : 1970 Age: 54y Thank you for visiting [facility]. 2 of 5 Discharge Instructions You have been evaluated today by Jason Child D.O. for the following condition(s): Principal Diagnosis Acute sialoadenitis (Sialoadenitis left submandibular gland without obstructing stone and without abscess.). INSTRUCTIONS Take Tylenol (Acetaminophen) or Motrin (Ibuprofen) as needed for fever control. Take medication according to label instructions. Drink plenty of fluids. (Take medication as prescribed. Arrange follow up with [facility]. See below.). Warnings: GENERAL WARNINGS: Return or contact your physician immediately if your condition worsens or changes unexpectedly, if not improving as expected, or if other problems arise. Prescription Medications: oxycodone-acetaminophen 5 mg-325 mg tablet: Take 1 tablet by mouth four times a day for 10 days, dispense 40 tablet. Refills 0. Pharmacy: [facility] [id number] [address] [place] [id number]. clindamycin HCl 300 mg capsule: Take 1 capsule by mouth four times a day for 10 days, dispense 40 capsule. Refills 0. Pharmacy: [id number] [address] [id number]. oxycodone-acetaminophen 5 mg-325 mg tablet: Take 1 tablet by mouth every six hours as needed for pain for 3 days, dispense 12 tablet. Refills 0. Pharmacy: [facility], [place] - [address] [place] [address]. clindamycin HCl 300 mg capsule: Take 1 capsule by mouth four times a day for 10 days, dispense 40 capsule. Refills 0. Pharmacy: [facility], [place] - [address] [place] [address]. Understanding of the discharge instructions verbalized by patient and family. 3 of 5 Discharge Instructions Follow-up with: Dr. Jack, [facility], [facility], Phone: [phone], [place], [place] [address]. Follow up in four days. Call for an appointment. Reason for referral: evaluation and treatment. Summary of care provided to patient and family. (Left submandibular salivary gland appears to be infected. No (more content not included)... [facility] 12-12-2023 Hospital Discharge instructions Patient Education 12/12/2023 11:35:09 Acute Respiratory Failure, Adult Acute Respiratory Failure, Adult Acute respiratory failure occurs when there is not enough oxygen passing from your lungs to your body. When this happens, your lungs have trouble removing carbon dioxide from the blood. This causes your blood oxygen level to drop too low as carbon dioxide builds up. Acute respiratory failure is a medical emergency. It can develop quickly, but it is temporary if treated promptly. Your lung capacity, or how much air your lungs can hold, may improve with time, exercise, and treatment. What are the causes? There are many possible causes of acute respiratory failure, including: Lung injury. Chest injury or damage to the ribs or tissues near the lungs. Lung conditions that affect the flow of air and blood into and out of the lungs, such as pneumonia, acute respiratory distress syndrome, and cystic fibrosis. Medical conditions, such as strokes or spinal cord injuries, that affect the muscles and nerves that control breathing. Blood infection (sepsis). Inflammation of the pancreas (pancreatitis). A blood clot in the lungs (pulmonary embolism). A large-volume blood transfusion. Fine. Near-drowning. Seizure. Smoke inhalation. Reaction to medicines. Alcohol or drug overdose. What increases the risk? This condition is more likely to develop in people who have: A blocked airway. Asthma. A condition or disease that damages or weakens the muscles, nerves, bones, or tissues that are involved in breathing. A serious infection. A health problem that blocks the unconscious reflex that is involved in breathing, such as hypothyroidism or sleep apnea. A lung injury or trauma. What are the signs or symptoms? Trouble breathing is the main symptom of acute respiratory failure. Symptoms may also include: Rapid breathing. Restlessness or anxiety. Skin, lips, or fingernails that appear blue (cyanosis). Rapid heart rate. Abnormal heart rhythms (arrhythmias). Confusion or changes in behavior. Tiredness or loss of energy. Feeling sleepy or having a loss of consciousness. How is this diagnosed? Your health care provider can diagnose acute respiratory failure with a medical history and physical exam. During the exam, your health care provider will listen to your heart and check for crackling or wheezing sounds in your lungs. Your may also have tests to confirm the diagnosis and determine what is causing respiratory failure. These tests may include: Measuring the amount of oxygen in your blood (pulse oximetry). The measurement comes from a small device that is placed on your finger, earlobe, or toe. Other blood tests to measure blood gases and to look for signs of infection. Sampling your cerebral spinal fluid or tracheal fluid to check for infections. Chest X-ray to look for fluid in spaces that should be filled with air. Electrocardiogram (ECG) to look at the heart's electrical activity. How is this treated? Treatment for this condition usually takes places in a hospital intensive care unit (ICU). Treatment depends on what is causing the condition. It may include one or more treatments until your symptoms improve. Treatment may include: Supplemental oxygen. Extra oxygen is given through a tube in the nose, a face mask, or a sanchez. A device such as a continuous positive airway pressure (CPAP) or bi-level positive airway pressure (BiPAP or BPAP) machine. This treatment uses mild air pressure to keep the airways open. A mask or other device will be placed over your nose or mouth. A tube that is connected to a motor will deliver oxygen through the mask. Ventilator. This treatment helps move air into and out of the lungs. This may be done with a bag and mask or a machine. For this treatment, a tube is placed in your windpipe (trachea) so air and oxygen can flow to the lungs. Extracorporeal membrane oxygenation (ECMO). This treatment temporarily takes over the function of the heart and lungs, supplying oxygen and removing carbon dioxide. ECMO gives the lungs a chance to recover. It may be used if a ventilator is not effective. Tracheostomy. This is a procedure that creates a hole in the neck to insert a breathing tube. Receiving fluids and medicines. Rocking the bed to help breathing. Follow these instructions at home: Take bopp-ldi-zupebjr and prescription medicines only as told by your health care provider. Return to normal activities as told by your health care provider. Ask your health care provider what activities are safe for you. Keep all follow-up visits as told by your health care provider. This is important. How is this prevented? Treating infections and medical conditions that may lead to acute respiratory failure can help prevent the condition from developing. Contact a health care provider if: You have a fever. Your symptoms do not improve or they get worse. Get help right away if: You are having trouble breathing. You lose consciousness. Your have cyanosis or turn blue. You develop a rapid heart rate. You are confused. These symptoms may represent a serious problem that is an emergency. Do not wait to see if the symptoms will go away. Get medical help right away. Call your local emergency services (911 in the [place] Do not drive yourself to the hospital. This information is not intended to replace advice given to you by your health care provider. Make sure you discuss any questions you have with your health care provider. Document Released: 03/21/2014 Document Revised: 02/26/2018 Document Reviewed: 10/01/2016 [employer] Patient Education 2020 [employer]. 12/12/2023 11:35:01 Acute Pain, Adult Acute Pain, Adult Acute pain is a type of sudden pain that may last for just a few days or for as long as six months. It is often related to an illness, injury, or medical procedure. Acute pain may be mild, moderate, or severe. Pain can make it hard for you to do your normal, daily activities. It can cause anxiety and lead to other problems if it is left untreated. Treatment depends on the cause and severity of your pain. Acute pain usually goes away once your injury has healed or you are no longer ill. Follow these instructions at home: Medicines Take lquv-ohf-pfbooej and prescription medicines only as told by your health care provider. Take the lowest dose of medicine for the shortest amount of time needed to relieve the pain. If you are taking prescription pain medicine: ?Do not stop taking the medicine suddenly. Talk to your health care provider about how and when to discontinue prescription medicine. ?Do not take more pills than told by your health care provider even if your pain is severe. ?Do not take other fwgk-ijq-xqtbmfo pain medicines in addition to prescription pain medicine unless told by your health care provider. ?Ask your health care provider if the medicine requires you to avoid driving or using heavy machinery. ?Ask your health care provider if the medicine can cause constipation. You may need to take these actions to prevent or treat constipation: ?Drink enough fluid to keep your urine pale yellow. ?Eat foods that are high in fiber, such as beans, whole grains, and fresh fruits and vegetables. ?Take qafy-vbk-fljtkuu or prescription medicines. ?Limit foods that are high in fat and processed sugars, such as fried or sweet foods. Managing pain, stiffness, and swelling If directed, put ice on the affected area. To do this: Put ice in a plastic bag. Place a towel between your skin and the bag. Leave the ice on for 20 minutes, 2 3 times a day. If directed, apply heat to the affected area as often as told by your health care provider. Use the heat source that your health care provider recommends, such as a moist heat pack or a heating pad. Place a towel between your skin and the heat source. Leave the heat on for 20 30 minutes. Remove the heat if your skin turns bright red. This is especially important if you are unable to feel pain, heat, or cold. You may have a greater risk of getting burned. Activity Rest as told by your health care provider. Return to your normal activities as told by your health care provider. Ask your health care provider what activities are safe for you. General instructions Check your pain level as told by your health care provider. Ask your health care provider if other strategies such as distraction, relaxation, or physical therapies can help your pain. Keep all follow-up visits as told by your health care provider. This is important. Contact a health care provider if: Your pain is not controlled by medicine. Your pain does not improve or gets worse. You have side effects from pain medicines, such as vomiting or confusion. Get help right away if you: Have severe pain. Have trouble breathing. Lose consciousness. Have chest pain or pressure that lasts for more than a few minutes, or if you have other symptoms along with chest pain, including if you: ?Have pain or discomfort in one or both arms, your back, neck, jaw, or stomach. ?Have shortness of breath. ?Break out in a cold sweat. ?Feel nauseous. ?Become light-headed. These symptoms may represent a serious problem that is an emergency. Do not wait to see if the symptoms will go away. Get medical help right away. Call your local emergency services (911 in the [place] Do not drive yourself to the hospital. Summary Acute pain may be mild, moderate, or severe. It usually goes away once your injury has healed or you are no longer ill. Take ewlr-rts-lpypoov and prescription medicines only as told by your health care provider. Ask your health care provider if the medicine prescribed to you can cause constipation. Contact a health care provider if your pain is not controlled by medicine. This information is not intended to replace advice given to you by your health care provider. Make sure you discuss any questions you have with your health care provider. Document Released: 03/30/2016 Document Revised: 08/01/2019 Document Reviewed: 08/01/2019 [employer] Patient Education 2020 [employer] Follow Up Care 12/04/2023 10:11:59 With:LUIS LUCIANO DO, Orthopedic Address: [address] [place] [address], [address] [facility] [place] [address]- [phone] When:12/30/2023 13:30:00 Comments:This is your post-op appointment and is in the [facility] office. Follow-up as scheduled. [facility] 12-12-2023 Note Discharge Instructions Thank you for allowing [facility] to assist you with your healthcare needs. The following is important discharge information regarding your hospital visit. Your Care Team [facility] Team Your Diagnosis Acute pain Acute respiratory failure with hypoxia Pleural effusion Pneumonia S/P laminectomy Sleep apnea Tobacco use What to do next Instructions From Your Doctor FROM THE SURGICAL TEAM 1. During your procedure, you received sedation through your IV. Please follow these instructions for the next 24 hours: Do not drive a motor vehicle, do not drink any alcoholic beverages, do not sign any legal documents or make personal or business decisions. A responsible adult should stay with you at least 6 hours after the procedure. 2. Keep your surgical site/incision clean and the dressing dry and intact. Change dressing daily. Do not get the dressing wet. No showering or bathing during the stimulator trial. If you have a permanent spinal cord stimulator, you must cover your incisions with a waterproof dressing to shower. Do not use bathtubs, hot tubs, swimming pools etc. You may use an ice pack at the surgical site to reduce swelling or discomfort. 3. Monitor the incision for any signs or symptoms of infection. Watch for redness, excessive swelling or drainage, or continued pain at the incision site after 3 days. Contact your physician immediately for a fever, chills, or a temperature of 101.5 Fahrenheit or greater. #4 take your medication exactly as prescribed by your physician. Do not attempt to wean yourself off any of your medication even though your pain is improving. This process needs to be carefully monitored by your doctor. Take any antibiotics prescribed exactly as directed until they are gone. 5. Avoid stretching, bending, pulling, twisting or any sudden movements. Do not bend or twist at the waist. Do not raise your arms above your head. Do not lie on your stomach. 6. no lifting greater than 5 pounds. 7. Do not operate a motor vehicle, equipment or power tools while your stimulator is on. 8. Do not have any manipulation done by a chiropractor or any other physician without first consulting with the physician who placed your spinal cord stimulator. 9. Please call if you have any questions, problems, or concerns FROM THE MEDICAL TEAM: After your surgery you were treated for pneumonia and pulmonary edema (fluid in your lungs). You received IV antibiotics and IV Lasix (a diuretic that removed the fluid from your lungs). You are being discharged with a prescription for cefdinir to be taken twice daily for 5 days. You may start this on 12/13/2023 as the antibiotic you received in the hospital will last 24 hours. I would recommend follow-up with your PCP to have an echocardiogram done to determine the cause of the pulmonary edema. Follow Up Appointments Follow Up with LUIS LUCIANO DO, Orthopedic When:12/30/2023 01:30 PM EDT Where:[address] [place] [address], [address] [facility] [place] [address]- [phone] Additional Information: This is your post-op appointment and is in the [facility] office. Follow-up as scheduled. The Following Activity and Diet Have Been Ordered for You No qualifying data available. Discharge Diet - Ordered -- No changes were made to your diet during your hospital stay. Please resume your pre hospitalization diet on discharge., 12/12/23 11:33:00 EDT The Following Equipment Has Been Ordered for You No qualifying data available. The Following Treatments Have Been Ordered for You Discharge Labs No qualifying data available. Discharge Radiology No qualifying data available. Other Therapies No qualifying data available. Post Acute Orders No qualifying data available. Someone Will Contact You Regarding These Home Health Referrals No home referrals have been ordered for you. No one will call you. Allergies Wellbutrin Aggressive behavior penicillin Hives Medications Please ask your primary doctor or pharmacist before taking any other medication not listed, including over the counter drugs, herbal medications, vitamins and or supplements as they may interact with your home medications. What How Much When Why Instructions Last Dose New cefdinir (cefdinir 300 mg oral capsule) 1 cap by mouth Every 12 hours Duration: 5 Days Printed Prescription Changed acetaminophen-hydrocodone (Chauvin 325- 5 mg oral tablet) 1 tab(s) by mouth Every 6 hours as needed for for pain Lumbar spondylosis Duration: 7 Days Pickup at [facility]. Changed acetaminophen-hydrocodone (Chauvin 325- 5 mg oral tablet) 1 tab(s) by mouth Every 6 hours as needed for for pain Acute pain Duration: 2 Days Printed Prescription Unchanged acetaminophen (Tylenol Extra Strength 500 mg oral powder) 2 Packet(s) by mouth Every 6 hours as needed for as needed for pain Unchanged busPIRone (busPIRone 10 mg oral tablet) 2 tab(s) by mouth Two (2) times a day Unchanged cyclobenzaprine (cyclobenzaprine 10 mg oral tablet) 1 tab(s) by mouth Daily at bedtime as needed for as needed for spasm Unchanged doxazosin (doxazosin 1 mg oral tablet) 1 tab(s) by mouth Daily at bedtime Unchanged doxazosin (doxazosin 2 mg oral tablet) 1 tab(s) by mouth Daily at bedtime Unchanged hydrOXYzine (hydrOXYzine pamoate 50 mg oral capsule) 1 cap by mouth Two (2) times a day as needed for for anxiety Unchanged pantoprazole (pantoprazole 20 mg oral enteric coated tablet) 1 tab(s) by mouth Once a day before a meal Unchanged pregabalin (pregabalin 150 mg oral capsule) 1 cap by mouth Three (3) times a day Unchanged rOPINIRole (rOPINIRole 1 mg oral tablet) 1 tab(s) by mouth Daily at bedtime Unchanged venlafaxine (venlafaxine 150 mg oral capsule, extended release) 1 cap by mouth Twice daily with meals Unchanged zolpidem (zolpidem 10 mg oral tablet) 1 tab(s) by mouth Daily at bedtime as needed for for sleep Pharmacy Information [facility], [facility] [address] [place], [place] [id number] [phone] What How Much When Comments Stop Taking oxyCODONE (oxyCODONE 5 mg oral tablet ( IMMEDIATE release )) 1 tab(s) by mouth Every 6 hours as needed for as needed for pain Please take this list to your next doctor s visit. Bring all medications you take, including over the counter medications, herbals and other supplements with you to your doctor s visit. Patients and families are reminded to discard old lists and to update any records with all medication providers or retail pharmacies. Education Materials Acute Respiratory Failure, Adult Acute respiratory failure occurs when there is not enough oxygen passing from your lungs to your body. When this happens, your lungs have trouble removing carbon dioxide from the blood. This causes your blood oxygen level to drop too low as carbon dioxide builds up. Acute respiratory failure is a medical emergency. It can develop quickly, but it is temporary if treated promptly. Your lung capacity, or how much air your lungs can hold, may improve with time, exercise, and treatment. What are the causes? There are many possible causes of acute respiratory failure, including: Lung injury. Chest injury or damage to the ribs or tissues near the lungs. Lung conditions that affect the flow of air and blood into and out of the lungs, such as pneumonia, acute respiratory distress syndrome, and cystic fibrosis. Medical conditions, such as strokes or spinal cord injuries, that affect the muscles and nerves that control breathing. Blood infection (sepsis). Inflammation of the pancreas (pancreatitis). A blood clot in the lungs (pulmonary embolism). A large-volume blood transfusion. Fine. Near-drowning. Seizure. Smoke inhalation. Reaction to medicines. Alcohol or drug overdose. What increases the risk? This condition is more likely to develop in people who have: A blocked airway. Asthma. A condition or disease that damages or weakens the muscles, nerves, bones, or tissues that are involved in breathing. A serious infection. A health problem that blocks the unconscious reflex that is involved in breathing, such as hypothyroidism or sleep apnea. A lung injury or trauma. What are the signs or symptoms? Trouble breathing is the main symptom of acute respiratory failure. Symptoms may also include: Rapid breathing. Restlessness or anxiety. Skin, lips, or fingernails that appear blue (cyanosis). Rapid heart rate. Abnormal heart rhythms (arrhythmias). Confusion or changes in behavior. Tiredness or loss of energy. Feeling sleepy or having a loss of consciousness. How is this diagnosed? Your health care provider can diagnose acute respiratory failure with a medical history and physical exam. During the exam, your health care provider will listen to your heart and check for crackling or wheezing sounds in your lungs. Your may also have tests to confirm the diagnosis and determine what is causing respiratory failure. These tests may include: Measuring the amount of oxygen in your blood (pulse oximetry). The measurement comes from a small device that is placed on your finger, earlobe, or toe. Other blood tests to measure blood gases and to look for signs of infection. Sampling your cerebral spinal fluid or tracheal fluid to check for infections. Chest X-ray to look for fluid in spaces that should be filled with air. Electrocardiogram (ECG) to look at the heart's electrical activity. How is this treated? Treatment for this condition usually takes places in a hospital intensive care unit (ICU). Treatment depends on what is causing the condition. It may include one or more treatments until your symptoms improve. Treatment may include: Supplemental oxygen. Extra oxygen is given through a tube in the nose, a face mask, or a sanchez. A device such as a continuous positive airway pressure (CPAP) or bi-level positive airway pressure (BiPAP or BPAP) machine. This treatment uses mild air pressure to keep the airways open. A mask or other device will be placed over your nose or mouth. A tube that is connected to a motor will deliver oxygen through the mask. Ventilator. This treatment helps move air into and out of the lungs. This may be done with a bag and mask or a machine. For this treatment, a tube is placed in your windpipe (trachea) so air and oxygen can flow to the lungs. Extracorporeal membrane oxygenation (ECMO). This treatment temporarily takes over the function of the heart and lungs, supplying oxygen and removing carbon dioxide. ECMO gives the lungs a chance to recover. It may be used if a ventilator is not effective. Tracheostomy. This is a procedure that creates a hole in the neck to insert a breathing tube. Receiving fluids and medicines. Rocking the bed to help breathing. Follow these instructions at home: Take vgew-tmc-ostzclu and prescription medicines only as told by your health care provider. Return to normal activities as told by your health care provider. Ask your health care provider what activities are safe for you. Keep all follow-up visits as told by your health care provider. This is important. How is this prevented? Treating infections and medical conditions that may lead to acute respiratory failure can help prevent the condition from developing. Contact a health care provider if: You have a fever. Your symptoms do not improve or they get worse. Get help right away if: You are having trouble breathing. You lose consciousness. Your have cyanosis or turn blue. You develop a rapid heart rate. You are confused. These symptoms may represent a serious problem that is an emergency. Do not wait to see if the symptoms will go away. Get medical help right away. Call your local emergency services (911 in the [place] Do not drive yourself to the hospital. This information is not intended to replace advice given to you by your health care provider. Make sure you discuss any questions you have with your health care provider. Document Released: 03/21/2014 Document Revised: 02/26/2018 Document Reviewed: 10/01/2016 [employer] Patient Education 2020 [employer] Acute Pain, Adult Acute pain is a type of sudden pain that may last for just a few days or for as long as six months. It is often related to an illness, injury, or medical procedure. Acute pain may be mild, moderate, or severe. Pain can make it hard for you to do your normal, daily activities. It can cause anxiety and lead to other problems if it is left untreated. Treatment depends on the cause and severity of your pain. Acute pain usually goes away once your injury has healed or you are no longer ill. Follow these instructions at home: Medicines Take rfie-dzj-kosklek and prescription medicines only as told by your health care provider. Take the lowest dose of medicine for the shortest amount of time needed to relieve the pain. If you are taking prescription pain medicine: ? Do not stop taking the medicine suddenly. Talk to your health care provider about how and when to discontinue prescription medicine. ? Do not take more pills than told by your health care provider even if your pain is severe. ? Do not take other jmrf-pwo-pekljuz pain medicines in addition to prescription pain medicine unless told by your health care provider. ? Ask your health care provider if the medicine requires you to avoid driving or using heavy machinery. ? Ask your health care provider if the medicine can cause constipation. You may need to take these actions to prevent or treat constipation: ? Drink enough fluid to keep your urine pale yellow. ? Eat foods that are high in fiber, such as beans, whole grains, and fresh fruits and vegetables. ? Take glrq-gyj-nbsfsfb or prescription medicines. ? Limit foods that are high in fat and processed sugars, such as fried or sweet foods. Managing pain, stiffness, and swelling If directed, put ice on the affected area. To do this: Put ice in a plastic bag. Place a towel between your skin and the bag. Leave the ice on for 20 minutes, 2 3 times a day. If directed, apply heat to the affected area as often as told by your health care provider. Use the heat source that your health care provider recommends, such as a moist heat pack or a heating pad. Place a towel between your skin and the heat source. Leave the heat on for 20 30 minutes. Remove the heat if your skin turns bright red. This is especially important if you are unable to feel pain, heat, or cold. You may have a greater risk of getting burned. Activity Rest as told by your health care provider. Return to your normal activities as told by your health care provider. Ask your health care provider what activities are safe for you. General instructions Check your pain level as told by your health care provider. Ask your health care provider if other strategies such as distraction, relaxation, or physical therapies can help your pain. Keep all follow-up visits as told by your health care provider. This is important. Contact a health care provider if: Your pain is not controlled by medicine. Your pain does not improve or gets worse. You have side effects from pain medicines, such as vomiting or confusion. Get help right away if you: Have severe pain. Have trouble breathing. Lose consciousness. Have chest pain or pressure that lasts for more than a few minutes, or if you have other symptoms along with chest pain, including if you: ? Have pain or discomfort in one or both arms, your back, neck, jaw, or stomach. ? Have shortness of breath. ? Break out in a cold sweat. ? Feel nauseous. ? Become light-headed. These symptoms may represent a serious problem that is an emergency. Do not wait to see if the symptoms will go away. Get medical help right away. Call your local emergency services (911 in the [place] Do not drive yourself to the hospital. Summary Acute pain may be mild, moderate, or severe. It usually goes away once your injury has healed or you are no longer ill. Take aisg-svi-ivjcalb and prescription medicines only as told by your health care provider. Ask your health care provider if the medicine prescribed to you can cause constipation. Contact a health care provider if your pain is not controlled by medicine. This information is not intended to replace advice given to you by your health care provider. Make sure you discuss any questions you have with your health care provider. Document Released: 03/30/2016 Document Revised: 08/01/2019 Document Reviewed: 08/01/2019 [employer] Patient Education 2020 [employer] Additional Information VACCINATE! IT SAVES LIVES! Members of the community who have not yet received the COVID-19 vaccine and would like to receive it can visit one of [facility] vaccine clinics. There are many vaccine clinic locations within the [facility]. For locations and available times, please visit [email or web address] [email or web address] It is important to note that some COVID mobile vaccine clinics are held outdoors and may be canceled in rainy or stormy conditions. To learn more about pediatric vaccinations (ages 5-11), we invite you to visit the [facility] webpage. [email or web address]/pages [email or web address]-Adwpzydtaoi-[email or web address] sked-Questions.html To learn more about the COVID-19 vaccine, we invite you to visit the CDC website for a list of frequently asked questions.https://www.cdc.gov/slaughter virus/2019-ncov/vaccines/faq.html [facility] Patient Portal Access Instructions: Stay connected with your healthcare team and access your personal medical information anytime with the [facility] Patient Portal. Please follow the directions below to create your [facility] account: 1.Access the email account you provided upon registration to the hospital/physician office.2.Look for an invitation email from [facility].3.Open the email and access the invitation link: Accept Invitation to [facility].4.Fill in the required whitman to create your account. To access your account, visit [email or web address]. Click the blue button labeled Access Patient Portal and then log in with the username and password that you created in the steps above. You will be able to view your test results, lab results, a summary of your visits, upcoming appointments and more. There is also a convenient messaging option where you can send secure messages to your provider. In addition, you will have the ability to download any documents or summaries to your computer and/or send the information securely to a physician. Remember that your healthcare information is confidential, so carefully consider who you will allow to register on the [facility] Patient Portal for access to your information. You can also access the [facility] Patient Portal on the [facility] [place]. Simply click on Patient Portal and then log into your account. If you would like to receive a full copy of your medical records, please contact the [facility] Medical Records Department by calling [phone], Thursday through Thursday between 8 a.m. and 4:30 p.m. HOW TO SAFELY DISPOSE OF PRESCRIPTION MEDICATIONS Please use one of the following methods to safely dispose of your unused medications. 1.Use a drug disposal kit: the drug disposal pouch allows you to safely discard your old and unused drugs. Ask your nurse to give you one when you are discharged.2.Visit a local take-back location: Many local pharmacies and police departments have programs that collect old and unwanted prescription drugs. Call your local pharmacy or go to http://Retrophin.BevSpot/6M5Xy2o to find one close to you.3.Make use of household items: Use cat litter or old coffee grounds to dispose medications if other options are not available. Mix your drugs with these household products, seal them in an airtight container and throw it into the garbage. Call [facility]: [phone] to be sure your drugs can be disposed of in this way. Some medicines may require a different approach.4.Never flush your medications down the toilet. IF YOU HAVE BEEN PRESCRIBED AN OPIOID FOR PAIN If you have been prescribed an opioid (such as hydrocodone, oxycodone or morphine), it is critical to understand the possible side effects and risks of opioid pain medications. Even when taken as directed, opioids can have several side effects including: Tolerance, meaning you might need to take more of a medication for the same pain relief. Nausea, vomiting and/or constipation. Sleepiness, dizziness, dry mouth, confusion, depression or itching. Physical dependence, meaning you have withdrawal symptoms when a medication is stopped, can develop within a few days. KNOW YOUR RESPONSIBILITIES It is important to know exactly how much and how often to take the opioid pain medications you are prescribed. Never take opioids in higher amounts or more often than prescribed. Do not combine opioids with alcohol or other drugs that cause drowsiness, such as benzodiazepines, also known as benzos, including diazepam and alprazolam, muscle relaxants or sleep aids. Never sell or share prescription opioids. This is illegal. Store opioids in a secure place and out of reach of others (including children, family, friends and visitors). The last page of this document has been signed and retained as a CHART COPY. Signatures Patient Education Materials Acute Respiratory Failure, Adult Acute Pain, Adult Medication Leaflets My discharge plan and instructions have been reviewed and explained to me and I,MICHAEL PARIKH understand my current condition and have read and understand these discharge instructions. I have received a written copy of the plan/instructions. If I have questions, I am aware that I should contact my doctor. 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 [facility] 12-11-2023 Note . MICRO - Microbiology PROCEDURE: Legionella Urine Ag [*1] SOURCE: Urine BODY SITE: COLLECTED DATE/TIME: 12/11/2023 08:11 EDT RECEIVED DATE/TIME: 12/11/2023 15:50 EDT START DATE/TIME: 12/11/2023 15:50 EDT FREE TEXT SOURCE: FINAL REPORTS Final Report [] Verified Date/Time/Personnel: 12/11/2023 16:09 EDT Presumptive negative for L. pneumophila serogroup 1 antigen in urine, suggesting no recent or current infection. Legionnaire's disease cannot be ruled out since other serogroups and species may also cause disease. Performing Locations *1: This test was performed at: [facility], [address] [place] [address], [id number] , [facility] 12-11-2023 Note ORIGINAL EXAMINATION: TWO XRAY VIEWS OF THE CHEST 12/11/2023 12:14 pm COMPARISON: 12/10/2023 HISTORY: ORDERING SYSTEM PROVIDED HISTORY: Reason for Exam: F/U PNA FINDINGS: Pulmonary vascular cephalization and veiling of the lower lobe vessels is seen. There are patchy areas of interstitial disease in both bases, unchanged. No cardiomegaly or pneumothorax is seen. Patient status post placement of a intrathecal lower thoracic spinal stimulator. IMPRESSION: 1. Mild pulmonary edema pattern. 2. Bibasilar interstitial infiltrates, unchanged. Interpreted by: Neil Cruz DO Preliminary Report By: Neil Cruz DO Electronically signed By Neil Cruz DO Dictated Date: 12/11/2023 12:35:46 PM Prelim Date: 12/11/2023 12:36:31 PM Sign Date: 12/11/2023 12:36:31 PM Ordering Provider: YOSI ARROYO [facility] 12-11-2023 Note Date of Service 12/11/2023 Subjective 53-year-old male with past medical history significant for BISMARK, migraines, kidney stones, GERD, depression, asthma, anxiety, PTSD, BPH, RLS, chronic back pain, tobacco dependence, gastric bypass. Patient presented to [facility] on 12/09/2023 for elective T9-10 partial bilateral laminectomies and spinal cord stimulator placement by Dr. Luciano. Postoperatively patient was requiring simple mask and then BiPAP. He was able to be weaned down to 3 L nasal cannula in PACU. Patient was placed on BiPAP the evening following surgery. On the morning of 12/09 patient was still hypoxic requiring 5 L nasal cannula. He was also febrile at 38 C. X-ray showed Small right effusion and interstitial and alveolar opacities bilaterally. Patient was initiated on ceftriaxone, Mucinex, and DuoNebs. He was given a dose of Lasix 20 mg IV This morning white blood cell count is 12.9. Magnesium level 1.7. Temperature 37.5. He has been hemodynamically stable. RT was able to wean him down to 3 L via nasal cannula. States that he is clearing more secretions today. Denies any fever or chills. Pain is well-controlled. Objective Vitals and Measurements T: 37.5 C (Axillary) TMIN: 36.8 C (Oral) TMAX: 38.4 C (Oral) HR: 73 RR: 20 BP: 107/68 SpO2: 93% Intake and Output 7AM Yesterday to 7AM Today Intake and Output (Last 24 hours) Intake Oral Intake 400.00 Output Urine Voided 300.00 Total Summary Total Intake 400.00 Total Output 300.00 Fluid Balance 100.00 Physical Exam GEN: Appears chronically ill CHEST: Normal S1 and S2. Rhythm is regular. Diminished throughout ABD: Positive bowel sounds x 4 quads. Soft, nondistended, nontender. EXT: No significant deformity or joint abnormality. Peripheral pulses intact. NEURO: Sensation grossly intact SKIN: Surgical dressing in place PSYCH: The mental examination revealed the patient was alert and oriented x 4 Weight Dosing Weight: 100 kg (12/09/23) Dosing Weight: 100 kg (12/09/23) Medications Medications (26) Active Scheduled: (14) acetaminophen 500 mg Tablet 1,000 mg 2 tab(s), Oral, TID albuterol - ipratropium 2.5 mg-0.5 mg/3 mL Inhal Donna UD 3 mL, Inhalation, QIDRT azithromycin IV 500 mg 5 mL, IV Piggyback, qDay busPIRone 5 mg Tablet 20 mg 4 tab(s), Oral, BID cefTRIAXone 2 gram(s), IV Piggyback, qDay docusate sodium 100 mg Capsule 100 mg 1 cap(s), Oral, BID docusate-senna (Senokot S) 50 mg-8.6 mg Tablet 2 tab(s), Oral, BID famotidine 20 mg tablet 20 mg 1 tab(s), Oral, qDay guaifenesin 600 mg ER 1,200 mg 2 tab(s), Oral, BID magnesium hydroxide 8% Suspension 30 mL UD 30 mL, Oral, Daily pregabalin 50 mg capsule 150 mg 3 cap(s), Oral, TID rOPINIRole 1 mg tablet 1 mg 1 tab(s), Oral, qHS terazosin 1 mg Capsule 3 mg 3 cap(s), Oral, qHS venlafaxine 75 mg ER capsule 150 mg 2 cap(s), Oral, BIDM Continuous: (0) PRN: (12) acetaminophen 325 mg Tablet 650 mg 2 tab(s), Oral, q4h acetaminophen 325 mg Tablet 650 mg 2 tab(s), Oral, q4h albuterol - ipratropium 2.5 mg-0.5 mg/3 mL Inhal Donna UD 3 mL, Inhalation, q4hRT cyclobenzaprine 10 mg Tablet 10 mg 1 tab(s), Oral, qHS diphenhydramine 25 mg tablet 25 mg 1 tab(s), Oral, q6h diphenhyDRAMINE 50 mg/mL (1 mL) INJ 25 mg 0.5 mL, IV Push, q6h hydroxyzine pamoate 25 mg capsule 50 mg 2 cap(s), Oral, BID ondansetron 2 mg/ 1 mL 2 mL INJ 4 mg 2 mL, IV Push, q8h oxycodone 5 mg tablet (immediate release) 10 mg 2 tab(s), Oral, q4h oxycodone 5 mg tablet (immediate release) 5 mg 1 tab(s), Oral, q4h scopolamine 1.5 mg (1 mg / 72 hours patch) 1 patch(es), Transdermal, q72h sodium biphosphate-sodium phosphate 19 gm-7 gm Enema 133 mL, Rectal, qDay Lab Results 12/10 05:32 WBC: 12.9 H Hgb: 13.0 L Hct: 38.6 L Platelet: 242 Neutrophil %: 81.5 H Glucose Level: 117 H Sodium Level: 134 L Potassium Level: 4.0 BUN: 13 Creatinine Lvl (s): 0.82 12/09 05:38 WBC: 12.0 H Hgb: 13.1 L Hct: 39.6 L Platelet: 249 Neutrophil %: 78.3 Glucose Level: 103 Sodium Level: 138 Potassium Level: 4.5 BUN: 12 Creatinine Lvl (s): 0.86 Imaging Results and Diagnostics XR Chest 1 View Result Date: December 10, 2023 Verified By: EDITH BOB MD CLINICAL STATEMENT: IMPRESSION: Suspected small right effusion. Interstitial and alveolar opacitiesbilaterally could represent mild congestion/edema versus developinginfectious or inflammatory process. XR Fluoro 2 Hrs Tech Time Result Date: December 09, 2023 Verified By: CLINICAL STATEMENT: IMPRESSION: Assessment/Plan 1. Acute respiratory failure with hypoxia 2. Pneumonia 3. Pleural effusion 4. Sleep apnea 5. S/P laminectomy Acute hypoxic respiratory failure secondary to pneumonia X-ray chest Showing suspected small right pleural effusion. Interstitial and alveolar opacities bilaterally could represent mild congestion/edema versus developing infectious or inflammatory process. Continue ceftriaxone 2 g daily for pneumonia. Add azithromycin and check for atypicals. Continue DuoNebs 4 times daily. Continue to encourage incentive spirometer, Acapella device. Keep oxygen saturations 92% or greater. Attempted to wean to room air when possible. Repeat chest x-ray today. BISMARK Patient is unaware of his CPAP settings. BiPAP was ordered by GUN FITTER. Will continue this at at bedtime and as needed during the day. S/p laminectomy POD #2 for T9-10 partial bilateral laminectomies and spinal cord stimulator. Pain is not well-controlled. Continue Tylenol 1000 mg 3 times daily. Oxycodone 5 to 10 mg every 4 hours as needed pain. Suspend morphine per family request due to confusion and hypoxia with this. Hypomagnesemia magnesium sulfate 2 g IV. DVT prophylaxis: SCDs and FLORI walker Code Status: Full code Plan of care discussed with patient. All questions answered. Patient verbalizes understanding is agreeable to plan of care. This dictation was performed using voice recognition software and may include grammatical and/or spelling errors. Spoke with patient and in the room. Updated daughter, Catina via phone at [phone]. Anticipated Date of Discharge Within the next 24 hours Time Spent 40 minutes Digitally Signed by YOSI ARROYO on 12/11/2023 12:00 PM [facility] 12-10-2023 Note Date of Service 12/10/2023 Chief Complaint Degenerative disc disease Subjective 53-year-old male with past medical history significant for BISMARK, migraines, kidney stones, GERD, depression, asthma, anxiety, PTSD, BPH, RLS, chronic back pain, tobacco dependence, gastric bypass. Patient presented to [facility] on 12/09/2023 for elective T9-10 partial bilateral laminectomies and spinal cord stimulator placement by Dr. Luciano. Postoperatively patient was requiring simple mask and then BiPAP. He was able to be weaned down to 3 L nasal cannula in PACU. Overnight he used BiPAP as he has BISMARK. This morning oxygen requirements increased where he was requiring 5 L nasal cannula. He had a low-grade temperature of 37.5. White blood cell count this morning is 12. He has been hemodynamically stable. On exam today, pt denies any fever or chills. No headache or dizziness. Denies chest pain, palpitations. Admits cough that is productive of thick, yellow sputum. Admits dyspnea.. Denies N/V/D/C. No melena/hematochezia. No dysuria or hematuria. No new paresthesias. Pain is not well-controlled. Objective Vitals and Measurements T: 38.0 C (Oral) TMIN: 35.8 C (Axillary) TMAX: 38.0 C (Oral) HR: 87 RR: 20 BP: 116/54 SpO2: 91% HT: 172.7 cm WT: 100.0 kg BMI: 33.53 Intake and Output 7AM Yesterday to 7AM Today Intake and Output (Last 24 hours) Intake Administration Information 1849.00 Oral Intake 100.00 Output Urine Voided 1475.00 Intra-Op EBL 10.00 Total Summary Total Intake 1949.00 Total Output 1485.00 Fluid Balance 464.00 Physical Exam GEN: Appears chronically ill EYES: No conjunctival erythema, drainage. EOMI EARS: Hearing grossly intact. NOSE: No nasal discharge. THROAT: Oral cavity and pharynx pink and moist. CHEST: Normal S1 and S2. Rhythm is regular. Diminished throughout ABD: Positive bowel sounds x 4 quads. Soft, nondistended, nontender. EXT: No significant deformity or joint abnormality. Peripheral pulses intact. NEURO: Sensation grossly intact SKIN: Surgical dressing in place PSYCH: The mental examination revealed the patient was alert and oriented x 4 Weight Dosing Weight: 100 kg (12/09/23) Dosing Weight: 100 kg (12/09/23) Medications Medications (25) Active Scheduled: (13) acetaminophen 500 mg Tablet 1,000 mg 2 tab(s), Oral, TID albuterol - ipratropium 2.5 mg-0.5 mg/3 mL Inhal Donna UD 3 mL, Inhalation, QIDRT busPIRone 5 mg Tablet 20 mg 4 tab(s), Oral, BID cefTRIAXone 2 gram(s), IV Piggyback, qDay docusate sodium 100 mg Capsule 100 mg 1 cap(s), Oral, BID docusate-senna (Senokot S) 50 mg-8.6 mg Tablet 2 tab(s), Oral, BID doxazosin 1 mg Tablet 1 mg 1 tab(s), Oral, qHS doxazosin 2 mg Tablet 2 mg 1 tab(s), Oral, qHS famotidine 20 mg tablet 20 mg 1 tab(s), Oral, qDay magnesium hydroxide 8% Suspension 30 mL UD 30 mL, Oral, Daily pregabalin 50 mg capsule 150 mg 3 cap(s), Oral, TID rOPINIRole 1 mg tablet 1 mg 1 tab(s), Oral, qHS venlafaxine 75 mg ER capsule 150 mg 2 cap(s), Oral, BIDM Continuous: (0) PRN: (12) acetaminophen 325 mg Tablet 650 mg 2 tab(s), Oral, q4h acetaminophen 325 mg Tablet 650 mg 2 tab(s), Oral, q4h albuterol - ipratropium 2.5 mg-0.5 mg/3 mL Inhal Donna UD 3 mL, Inhalation, q4hRT cyclobenzaprine 10 mg Tablet 10 mg 1 tab(s), Oral, qHS diphenhydramine 25 mg tablet 25 mg 1 tab(s), Oral, q6h diphenhyDRAMINE 50 mg/mL (1 mL) INJ 25 mg 0.5 mL, IV Push, q6h hydroxyzine pamoate 25 mg capsule 50 mg 2 cap(s), Oral, BID ondansetron 2 mg/ 1 mL 2 mL INJ 4 mg 2 mL, IV Push, q8h oxycodone 5 mg tablet (immediate release) 10 mg 2 tab(s), Oral, q4h oxycodone 5 mg tablet (immediate release) 5 mg 1 tab(s), Oral, q4h scopolamine 1.5 mg (1 mg / 72 hours patch) 1 patch(es), Transdermal, q72h sodium biphosphate-sodium phosphate 19 gm-7 gm Enema 133 mL, Rectal, qDay Lab Results 12/09 05:38 WBC: 12.0 H Hgb: 13.1 L Hct: 39.6 L Platelet: 249 Neutrophil %: 78.3 Glucose Level: 103 Sodium Level: 138 Potassium Level: 4.5 BUN: 12 Creatinine Lvl (s): 0.86 Imaging Results and Diagnostics XR Chest 1 View Result Date: December 10, 2023 Verified By: EDITH BOB MD CLINICAL STATEMENT: IMPRESSION: Suspected small right effusion. Interstitial and alveolar opacitiesbilaterally could represent mild congestion/edema versus developinginfectious or inflammatory process. XR Fluoro 2 Hrs Tech Time Result Date: December 09, 2023 Verified By: CLINICAL STATEMENT: IMPRESSION: Assessment/Plan 1. Acute respiratory failure with hypoxia 2. Pneumonia 3. Pleural effusion 4. Sleep apnea 5. S/P laminectomy S/pAcute hypoxic respiratory failure secondary to pneumonia X-ray chest Showing suspected small right pleural effusion. Interstitial and alveolar opacities bilaterally could represent mild congestion/edema versus developing infectious or inflammatory process. Patient has a temperature of 38 C. Mild leukocytosis with white blood cell count of 12. He does have a productive cough with thick, yellow sputum. Lasix 20 mg IV x 1 for pleural effusion. Start ceftriaxone 2 g daily for pneumonia. Continue DuoNebs 4 times daily. Continue to encourage incentive spirometer. Add Acapella device. Transfer service from Ortho to hospitalist. Patient will also be admitted to inpatient given acute change. Keep oxygen saturations 92% or greater. Attempted to wean to room air when possible. BISMARK Patient is unaware of his CPAP settings. BiPAP was ordered by GUN FITTER. Will continue this at at bedtime and as needed during the day. S/p laminectomy POD #1 for T9-10 partial bilateral laminectomies and spinal cord stimulator. Pain is not well-controlled. Add Tylenol 1000 mg 3 times daily. Oxycodone 5 to 10 mg every 4 hours as needed pain. Suspend morphine per family request due to confusion and hypoxia with this. DVT prophylaxis: SCDs and FLORI walker Code Status: Full code Plan of care discussed with patient. All questions answered. Patient verbalizes understanding is agreeable to plan of care. This dictation was performed using voice recognition software and may include grammatical and/or spelling errors. Spoke with patient and in the room. Updated daughter, Catina via phone at [phone]. Anticipated Date of Discharge 24 to 48 hours Time Spent 52 minutes Digitally Signed by YOSI ARROYO on 12/10/2023 11:47 AM [facility] 12-10-2023 Pastoral care Progress note Pastoral Care Note Entered On: 12/10/2023 8:53 EDT Performed On: 12/10/2023 8:50 EDT by Jamir Mo Pastoral Care Type of Pastoral Visit : Initial visit Spiritual Care Visit Initiated by : Packaging Machine Operator Spiritual Care Reason for Visit : General Spiritual Assessment : Coping well with illness, Positive Image of God Spiritual Care Emotional Assessment : Accepting of Situation, Has Support Network Spiritual Care Intervention : Affirmation, Explore Emotional Needs, Prayer with Patient/Family Spiritual Outcomes : Expresses Confidence Spiritual Plan of Care : Visit as Requested Pastoral Care Comments : patient is on the bi-pap but welcoming of visit and able to talk clearly and without effort; pt states that he is doing well after surgery and has had other surgeries so this is not new to him; pt has family and accepts their support; pt welcomes a prayer and states no other concerns Pastoral Care Visit Length : 10 minute(s) Jamir Mo - 12/10/2023 8:50 EDT Digitally Signed by Jamir Mo on 12/10/2023 08:50 AM [facility] 12-10-2023 Note ORIGINAL EXAMINATION: ONE XRAY VIEW OF THE CHEST 12/10/2023 7:45 am COMPARISON: None. HISTORY: ORDERING SYSTEM PROVIDED HISTORY: Reason for Exam: hypoxia FINDINGS: Interstitial and alveolar haziness throughout the lungs bilaterally. No pneumothorax or large effusion. Central vascular prominence is noted. Possible small right effusion. IMPRESSION: Suspected small right effusion. Interstitial and alveolar opacities bilaterally could represent mild congestion/edema versus developing infectious or inflammatory process. Interpreted by: Edith Bob MD Preliminary Report By: Edith Bob MD Electronically signed By Edith Bob MD Dictated Date: 12/10/2023 8:01:07 AM Prelim Date: 12/10/2023 8:02:42 AM Sign Date: 12/10/2023 8:02:42 AM Ordering Provider: YOSI ARROYO [facility] 12-09-2023 Note ORIGINAL Images acquired, not reported on this accession number. [facility] 12-09-2023 Anesthesiology Progress note Patient decompensated post-extubation in OR requiring BiPAP in PACU. Past medical history 40 pack years as well as BISMARK uses CPAP at home. Patient had laryngospasm on extubation that required 20mg Succinylcholine IV push. Placed on 15L/min O2 face mask with spO2 88%. LS wheezing bilateral. Respiratory called to give breathing nebulized treatment upon arrival to PACU. Breathing treatment given and patient awaking to voice; able to provide a few deep coughs. SpO2 89% briefly and then reduced to low 80s after a few minutes, BP HR stable. Decision to place on BiPap and provide another breathing treatment in-line was made by GUN FITTER with respiratory therapist at bedside. On Bipap and breathing treatment patient improving, will monitor closely. Digitally Signed by CARLOS HARGROVE on 12/09/2023 12:52 PM [facility] 12-09-2023 Note Date of Service 12/09/2023 Subjective Seen and examined postop. Resting comfortably. Pain controlled. No complaints Objective Vitals and Measurements T: 36.5 C (Temporal Artery) HR: 66 RR: 13 BP: 116/73 SpO2: 99% HT: 172.7 cm WT: 100.0 kg Intake and Output 7AM Yesterday to 7AM Today Intake and Output (Last 24 hours) Intake Output Total Summary Total Intake 0.00 Total Output 0.00 Fluid Balance 0.00 Physical Exam A&O, NAD NCAT, EOMI Regular rate and rhythm Clear to auscultation bilaterally Abdomen soft and nontender Dressings clean dry and intact Extremities: Sensation and motor intact grossly without focal deficit. Pulses and reflexes normal and symmetric Weight Dosing Weight: 100 kg (12/09/23) Medications Medications (1) Active Scheduled: (1) clindamycin PMX 600 mg 50 mL, IV Piggyback, PREOP pharm Continuous: (0) PRN: (0) Lab Results No 36 Hour Lab Data EKG No qualifying data available. Assessment/Plan Orders: Bed Request - Admit, 12/09/23 8:11:00 EDT, Care Level Regular Floor, Care Service Surgical, Telemetry No, Cognitive Impairment None, Dialysis No, Neg Pressure No, Precautions None, Isolation Type None Communication Order (scheduled), 12/09/23 8:49:00 EDT, Once, 12/09/23 8:49:00 EDT, STAT PT/INR IF PATIENT ON COUMADIN IV Catheter Insertion/Care, 12/09/23 8:49:00 EDT, IV Care: q4h, Rotate when clinically indicated & q7day drsg change NPO, 12/09/23 8:49:00 EDT, Constant Order Prn Adapter, 12/09/23 8:49:00 EDT Sequential Compression Device Application, 12/09/23 8:49:00 EDT, Knee high, q4h, Bilateral Skin Prep/Scrub, 12/09/23 8:49:00 EDT, Once Vital Signs, 12/09/23 8:49:00 EDT, 12/09/23 8:49:00 EDT Okay to admit See orders Discharge planning, likely home tomorrow Digitally Signed by LUIS LUCIANO DO on 12/10/2023 06:45 AM [facility] 12-09-2023 Anesthesiology Consult note Patient: MICHAEL PARIKH Age: 53 years Sex: Male : 1970 Associated Diagnoses: None Author: CARLOS HARGROVE REPROGRAPHICS TECHNICIAN-GUN FITTER Preoperative Information Time of last food or liquid consumption: 12/08/2023 23:59:00 Anesthesia history Patient's history: negative. Family's history: negative. Review of Systems Ear/Nose/Mouth/Throat: Negative except as documented in history of present illness. Respiratory: Negative except as documented in history of present illness. Cardiovascular: Negative except as documented in history of present illness. Gastrointestinal: Negative except as documented in history of present illness. Genitourinary: Negative except as documented in history of present illness. Endocrine: Negative except as documented in history of present illness. Musculoskeletal: Negative except as documented in history of present illness. Integumentary: Negative except as documented in history of present illness. Neurologic: Negative except as documented in history of present illness. Health Status Allergies: Allergic Reactions (Selected) Severity Not Documented Penicillin- Hives. Wellbutrin- Aggressive behavior., Allergies (2) ActiveSeverityReaction penicillinHives WellbutrinAggressive behavior Current medications: (Selected) Inpatient Medications Ordered Cleocin Phosphate: 600 mg, 50 mL, 100 mL/hr, IV Piggyback, PREOP pharm Documented Medications Documented Multivitamin: 1 tab(s), Oral, Daily, 0 Refill(s) Tylenol Extra Strength 500 mg oral powder: 2 packet(s), Oral, q6h, PRN: as needed for pain, 12 packet(s), 0 Refill(s) busPIRone 10 mg oral tablet: 20 mg, 2 tab(s), Oral, BID, 0 Refill(s) cyclobenzaprine 10 mg oral tablet: 10 mg, 1 tab(s), Oral, qHS, PRN: as needed for spasm, 30 tab(s), 0 Refill(s) doxazosin 1 mg oral tablet: 1 mg, 1 tab(s), Oral, qHS, 30 tab(s), 0 Refill(s) doxazosin 2 mg oral tablet: 2 mg, 1 tab(s), Oral, qHS, 30 tab(s), 0 Refill(s) hydrOXYzine pamoate 50 mg oral capsule: 50 mg, 1 cap(s), Oral, BID, PRN: for anxiety, 40 cap(s), 0 Refill(s) oxyCODONE 5 mg oral tablet ( IMMEDIATE release ): 5 mg, 1 tab(s), Oral, q6h, PRN: as needed for pain, 0 Refill(s) pantoprazole 20 mg oral enteric coated tablet: 20 mg, 1 tab(s), Oral, qDayAC, 0 Refill(s) pregabalin 150 mg oral capsule: 150 mg, 1 cap(s), Oral, TID, 180 cap(s), 0 Refill(s) rOPINIRole 1 mg oral tablet: 1 mg, 1 tab(s), Oral, qHS, 270 tab(s), 0 Refill(s) sulfamethoxazole-trimethoprim 800 mg-160 mg oral tablet: 1 tab(s), Oral, BID, 0 Refill(s) venlafaxine 150 mg oral capsule, extended release: 150 mg, 1 cap(s), Oral, BIDM, 0 Refill(s) zolpidem 10 mg oral tablet: 10 mg, 1 tab(s), Oral, qHS, PRN: for sleep, 0 Refill(s), Medications (1) Active Scheduled: (1) clindamycin PMX 600 mg 50 mL, IV Piggyback, PREOP pharm Continuous: (0) PRN: (0) Problem list: No problem items selected or recorded., Active Problems (7) Anxiety GERD (gastroesophageal reflux disease) Osteoarthritis PTSD (post-traumatic stress disorder) Seizure disorder Sleep apnea Tobacco use Histories Past Medical History: No active or resolved past medical history items have been selected or recorded. Family History: Heart attack Grandparent Procedure history: Total hip replacement ([id number]). Comments: 12/07/2023 11:13 DIDI Spears MARCIA Cholecystectomy ([id number]). Tonsillectomy ([id number]). Spinal cord stimulation ([id number]). Comments: 12/07/2023 11:13 DIDI Spears TRIAL Social History: Social & Psychosocial Habits Alcohol 12/09/2023 Use: Current Frequency: 1-2 times per month Substance Abuse 12/09/2023 Use: Never Tobacco 12/09/2023 Tobacco Use: 10 or more cigarettes (1/ Number of years: 38 Home/Environment 12/09/2023 Domestic Concerns None Lives In 1st floor bathroom, 1st floor bedroom, Multilevel home Spouse Name MANISH Marital Status of Patient if Patient Independent Adult: Nutrition/Health 12/09/2023 Type of diet: Regular Eating Difficulties None Physical Examination Vital Signs 12/09/2023 9:00 EDT Temperature Temporal Artery 36.5 DegC Peripheral Pulse Rate 66 bpm Respiratory Rate 13 br/min LOW Systolic Blood Pressure Non-Invasive 116 mmHg Diastolic Blood Pressure Non-Invasive 73 mmHg Vital Signs (last 24 hrs) Last Charted Temp Noagysnu24.5 DegC (DEC 08 09:00) NNH093 mmHg (DEC 08 09:00) DBP73 mmHg (DEC 08 09:00) Measurements from flowsheet : Measurements 12/09/2023 9:00 EDT Height 172.7 cm Height in inches 68 inch(es) Admission Weight 100.0 kg [place] Body Weight 68.38 kg Admission Body Mass Index 33.53 m2 Pain assessment: Pain Assessment 12/09/2023 9:00 EDT Primary Pain Intensity 0 Pain Scale Type 0-10 Pain scale . General: Alert and oriented. Airway: Normal neck range of motion. Mallampati classification: II (soft palate, fauces, uvula visible). Head: Normocephalic. Dentition Evaluation: Intact, Own teeth. Neck: Full range of motion. Respiratory: Lungs are clear to auscultation. Cardiovascular: Normal rate. Heart Sounds: Normal. Gastrointestinal: Soft. Musculoskeletal Normal range of motion. Integumentary: Intact, Warm, Dry. Neurologic: Alert, Oriented. Review / Management Results review: No qualifying data available , Lab results 12/09/2023 9:52 EDT SN - XI - X-Ray Type C-Arm 12/09/2023 9:51 EDT SN - Assess - LOC Alert, Awake SN - Assess - Orientation Oriented X 3 SN - Assess - Post-op Skin Integrity Intact/Dry 12/09/2023 9:51 EDT SN - CAt - Case Attendee SN - CAt - Case Attendee SN - CAt - Case Attendee SN - CAt - Case Attendee SN - CAt - Case Attendee SN - CAt - Case Attendee SN - CAt - Case Attendee SN - CAt - Case Attendee SN - CAt - Case Attendee SN - CAt - Case Attendee SN - CAt - Case Attendee SN - CAt - Case Attendee SN - CAt - Role Performed Primary Surgeon SN - CAt - Role Performed GUN FITTER SN - CAt - Role Performed Hardware Design Engineer 1 SN - CAt - Role Performed Scrub 1 SN - CAt - Role Performed Market Risk Manager 1 SN - CAt - Role Performed X-Ray Tech SN - CAt - Role Performed System Configuration Specialist 12/09/2023 9:20 EDT SN - Preop - CTm Pt Ready for OR/Proced 12/09/2023 9:20 12/09/2023 9:20 EDT Lactated Ringers Injection 1,000 mL mL 12/09/2023 9:19 EDT Hand Left 12/09/2023 20 gauge Peripheral IV Activity: Field start Peripheral IV Dressing Condition: Clean, Dry, Intact Peripheral IV Dressing Activity: Applied Peripheral IV Line Status/Patency: Flushes easily Peripheral IV Site Condition: No complications Peripheral IV Equipment: Extension set Peripheral IV Number of Attempts: 1 12/09/2023 9:00 EDT Height 172.7 cm Height in inches 68 inch(es) Admission Weight 100.0 kg [place] Body Weight 68.38 kg Admission Body Mass Index 33.53 m2 Temperature Temporal Artery 36.5 DegC Peripheral Pulse Rate 66 bpm Respiratory Rate 13 br/min LOW Systolic Blood Pressure Non-Invasive 116 mmHg Diastolic Blood Pressure Non-Invasive 73 mmHg Primary Pain Intensity 0 Pain Scale Type 0-10 Pain scale Heart Rhythm Regular Dorsalis Pedis Pulse, Left 2+ Normal Dorsalis Pedis Pulse, Right 2+ Normal Radial Pulse, Left 2+ Normal Radial Pulse, Right 2+ Normal Respirations Unlabored Respiratory Pattern Regular Breath Sounds Auscultated Anterior and posterior All Lobes Breath Sounds Clear Cough None Oxygen Therapy Room air Oxygen Saturation 99 % Abdomen Description Non-distended, Soft Abdomen Palpation Non-Tender, Soft Bowel Sounds All Quadrants Present Skin Temperature Warm Skin Description [employer] [place], Normal for ethnicity Skin Integrity Intact Neurological Symptoms Patient denies Extremity Movement Equal Characteristics of Speech Clear Level of Consciousness Alert Strength All Extremities Strong Tone All Extremities Normal Sensation All Extremities Intact Affect/Behavior Appropriate, Calm, Cooperative Orientation Oriented x 4 Kathryn Motor (2) Moves 4 extremities voluntarily or on command Kathryn Respirations (2) Spontaneous respiration without support, RR > 10 Kathryn Blood Pressure (2) BP 20% above or below preanesthetic level Kathryn Pulse (2) Pulse 20% above or below preanesthetic level Kathryn Oxygen Saturation (2) 94% or more Kathryn Level of Consciousness (2) Fully awake Kathryn III Score 12 Orientation Assessment Oriented x 4 Assistive Device None Positioning Repositions self Activity Status ADL Up ad james Sequential Compression Device bilateral knee high applied/on Standard Safety ID band on, Allergy Band on, Call device within reach, Bed in low position, Wheels locked, Upper/Half-Length side-rails up 12/09/2023 8:56 EDT Designated Person #1 We May Share MARKUS HAMMOND [phone] Designated Person #1 Relationship Spouse Privacy Restrictions Requested None Status N/A Sensory Deficits None Diagnosed With Sleep Apnea Yes Advanced Directives Yes Advance Directive Location Indicates that Alda has been given copy Infectious Disease Symptoms Patient states no symptoms Infectious Disease Recent Exposure No Alcohol and Drug Use No Employee of Institutional Living No Health Care Employee No History of Exposure to TB No History of Positive Chest X-Ray for TB No History of Positive TB Skin Test No Homeless No Known Immunosuppression No Recent Immigrant No Resident of Institutional Living No Bloody Sputum No Fatigue No Fever No Loss of Appetite No Night Sweats No Persistent Cough > 3 Weeks No Weight Loss No Pre-Op Patient Education NPO after midnight, No smoking after midnight, No makeup, No jewelry, Aware of surgery location, Pre-op education done, Instructed to take ordered medications SN - Preprocedure Comments Spoke with patient, Verbalizes/Nonverbally indicates understanding, Other: PANTOPRAZOLE, VENLAFAXINE Barriers to Learning None evident Teaching Method Explanation Preferred Spoken Language Uzbek Preferred Written Language Uzbek Teaching Evaluation No further teaching needed Safety Brochure Information Reviewed Unable to complete Alda Kuo Video Viewed Patient refused Information Given by Patient Patient's Current Physicians Patient's Current Physicians Discharge To, Anticipated Home with family care Prev Test Positive/Diagnosis w/COVID-19 Yes Previous COVID-19 Positive Date 2020 Current Quarantine/Isolated any Illness No Any Contact with Sick Animals/Birds No Traveled Anywhere in Last 30 Days No Lost Weight Unintentionally Recently No Eat Poorly Due to Decreased Appetite No Total MST Score 0 N/A Personal Devices, Patient Valuables Glasses, Hearing aid, left, Hearing aid, right Anesthesia/Transfusions Prior anesthesia Admission Note-Nursing Same Day Patient History 12/09/2023 8:54 EDT Urinary Elimination Voiding, no difficulties Allergies Yes Consent Form Signed Yes Patient Dressed In Hospital gown CHG Preoperative Wash/Wipe Night before procedure, Day of procedure, Site specific wipe Preop Nasal Swab Povidone-Iodine CHG Skin Prep Completed for Eligible Surgery History & Physical Update On Chart No History & Physical On Chart No Obstructive Sleep Apnea Assess Completed Yes NPO Status Maintained Allergy Band on and Verified Yes Patient ID Band on and Verified Yes Implants Verified Yes Pacemaker/AICD Verified Yes Site Verified by Patient/Family Yes Anesthesia Consent Signed Yes Blood Consent Signed Yes Last Fluid Intake 12/08/2023 21:00 Last Food Intake 12/08/2023 21:00 Last Void 12/09/2023 8:56 12/09/2023 8:48 EDT SN - Preop - CTm Pt in SDS Room 12/09/2023 8:48 . Assessment and Plan [place] [employer] (ASA) physical status classification: Class II. Anesthetic Preoperative Plan Premedication: intravenous. Anesthetic technique: General. Induction: intravenously. Maintenance airway: Oral endotracheal tube. Postoperative pain management: Per surgeon. Risks discussed: nausea, vomiting, headache, sore throat, dental injury, hypotension, allergic reaction, serious complications. Informed consent: signed by patient. Digitally Signed by CARLOS HARGROVE on 12/09/2023 10:11 AM [facility] 07-12-2022 Discharge summary Note Date/Time July 12, 2022 8:05am [facility] Medical Records Department [address] [place] [address] Discharge Summary 07/12/22 0803 MR#: [id number] Acct: [id number] Name: MICHAEL PARIKH Rep #:[id number] : 1970 52 From: Kervin Nielson MD PCP: Dr. Kristin Holliday, Status:[facility] Location: [place] [address] Providers Date of Admission: 07/11/22 Primary Care Physician: Dr. Kristin Holliday, Reason For Visit: KIDNEY STONE Diagnosis Discharge Diagnosis (1) Kidney stone on left side: Status: Acute Code(s): N20.0 - Calculus of kidney Plan: Plan for laser and basket extraction of stones on the left side and stent placement Medications at Discharge Home Medications acetaminophen 650 mg tablet 650 mg PO Q6H PRN Pain 06/18/22 calcium carbonate 333 mg-magnesium oxide 133 mg-zinc gluc 5 mg tablet 3 tab PO DAILY supplement 06/18/22 diclofenac sodium 1 % topical gel 1 g topical BID joint pain 06/18/22 ferrous sulfate 325 mg (65 mg iron) tablet 325 mg PO BID supplement 06/18/22 gabapentin 600 mg tablet 600 mg PO TID joint pain 06/18/22 crnliuvd-oqk-cjqjq acid 300 mcg-lycopene 600 mcg-lutein 300 mcg tablet (Centrum Silver Men) 1 tab PO DAILY supplement 06/18/22 pantoprazole 20 mg tablet,delayed release 20 mg PO DAILY GERD 06/18/22 prazosin 2 mg capsule 2 mg PO QHS nightmares 06/18/22 tramadol 50 mg tablet 100 mg PO TID pain 06/18/22 venlafaxine 75 mg capsule,extended release 24 hr (Effexor XR) 225 mg PO DAILY anxiety 06/18/22 zolpidem 10 mg tablet (Ambien) 10 mg PO QHS PRN Sleep 06/18/22 oxycodone-acetaminophen 5 mg-325 mg tablet (Endocet) 2 tab PO Q4H PRN pain 7 days #20 tabs 07/10/22 Hospital Course Summary of Care Provided Hospital Course: Patient was admitted for severe pain on the left side after stent removal he hadshockwave lithotripsy the week before and had broken up a large stone and he haddeveloped severe fragments in the distal left ureter causing severe pain so he was admitted for pain control he did pass some fragments initially we got an x-ray still showed a lot of fragments left and then we put him on the schedule forthe next day. Overnight he did pass a few more fragments the next day took him to surgery we did ureteroscopy and he had passed all the fragments so at that point in surgery we did not put a stent in he was taken back to PACU good condition he will go home today and follow-up as planned. Physical Exam Const alert and oriented x3 General Appearance: cooperative HEENT normocephalic, head/scalp atraumatic, EAC's normal and TM's normal bilaterally Eyes PERRL and EOMs intact bilaterally Pupil: sluggish Neck no lymphadenopathy, supple and no JVD General: trachea midline Lymph Lymphatic: no lymphadenopathy noted, lymphedema and lymphadenopathy Resp normal respiratory effort, normal air movement and clear to auscultation bilaterally Cardio regular rate, regular rhythm and peripheral pulses 2+ throughout GI soft to palpation, non-tender and non-distended Extremity normal capillary refill and no clubbing, cyanosis or edema General Extremity: no tenderness to palpation of joints or extremities Skin no rashes or lesions noted General Skin Exam: turgor normal Lesions: no lesions Rashes: no rashes Neuro CN's II-XII intact bilaterally Speech: speech normal Motor Exam: strength 5/5 throughout; Negative for general weakness Psych thought process normal, cooperative and affect normal Appearance: appropriate Weight / BMI Weight Weight: 94.376 kg Body Mass Index (BMI) 31.6 ABG / Lab / Microbiology Data Result Diagrams: 07/11/22 06:26 Radiography Diagnostic Testing: Radiology Impression KUB X-Ray 07/11/22 14:00 IMPRESSION: Status post removal of the left-sided JJ stent. Persistent subtle densities in the left hemipelvis likely sequela from previous lithotripsy No acute findings Electronically Signed: Ezequiel Jimenez MD at 14:01 EDT , D/C Instructions Discharge Diet: No restrictions Call your doctor if your incision/area has: Continuous Slow Oozing, Increased Pain/ Swelling, Increased Redness and Foul Smelling Discharge Call your doctor if you observe: Fever of 101 or Higher, Numbness or Tingling, Shortness of breath, Dizziness, Calf discomfort and Uncontrolled pain Please Follow Up With: Kervin Nielson MD Meaningful Use Info Meaningful Use Diagnoses (Choose all that apply): None applicable Discharge Plan Admission Admit Date/Time: 07/11/22 00:43 Primary Reason for Your Visit: stone Attending Provider: Kervin Nielson Primary Care Provider: Kristin Holliday Discharge Orders/Prescriptions Prescriptions: No Action venlafaxine [Effexor XR] 75 mg Capsule,Extended Release 24hr 225 mg PO DAILY gabapentin 600 mg tablet 600 mg PO TID acetaminophen 650 mg Tablet 650 mg PO Q6H PRN (Reason: Pain) tramadol 50 mg tablet 100 mg PO TID Label Comments: TAKE 1 TO 2 TABLETS BY MOUTH THREE TIMES DAILY NEEDED FOR SEVERE PAIN pantoprazole 20 mg tablet,delayed release (DR/EC) 20 mg PO DAILY ferrous sulfate 325 mg (65 mg iron) Tablet 325 mg PO BID zolpidem [Ambien] 10 mg Tablet 10 mg PO QHS PRN (Reason: Sleep) prazosin 2 mg capsule 2 mg PO QHS diclofenac sodium 1 % gel 1 g TOPICAL BID Centrum Silver Men 300-600-300 mcg Tablet 1 tab PO DAILY calcium carb-mag ox-zinc gluc 333-133-5 mg Tablet 3 tab PO DAILY oxycodone-acetaminophen [Endocet] 5-325 mg tablet 2 tab PO Q4H PRN (Reason: pain) 7 Days Qty: 20 0RF Referrals / Follow Up: Kristin Holliday DO [Primary Care Provider] - Kervin Nielson MD [Med Staff - Active Staff] - Disposition Discharge Orders: Discharge Patient (Routine); Ordered 07/12/22 Ordered By: Dr. Kervin Nielson 07/12/22 0805 <Electronically signed by Kervin Nielson MD> Cosigner Signature (if applicable): CC: Dr. Kristin Holliday DO; Dr. Kervin Nielson MD~ Signed [facility] Work Phone: [phone]) 452-855304-15-[address] Nielson [facility] July 12, 2022 7:59am Note Date/Time July 12, 2022 7:5 9am [facility] Medical Records Department [address] [place] [address] Instructions for Home/Discharge Instructions 07/12/22 0759 MR#: [id number] Acct: [id number] Name: MICHAEL PARIKH Rep #:[id number] : 1970 52 From: Kervin Nielson MD PCP: Dr. Kristin Holliday, Status:[facility] Discharge Instructions Diet Discharge Diet: No restrictions Dressing / Incision Call your doctor if your incision/area has: Continuous Slow Oozing, Increased Pain/ Swelling, Increased Redness and Foul Smelling Discharge Call your doctor if you observe: Fever of 101 or Higher, Numbness or Tingling, Shortness of breath, Dizziness, Calf discomfort and Uncontrolled pain Follow Up Care Please Follow Up With: Kervin Nielson MD Test Results: Test results from this visit will be discussed in further detail at your follow- up appointment, if applicable. Discharge Plan Admission Admit Date/Time: 07/11/22 00:43 Primary Reason for Your Visit: krystyna Attending Provider: Kervin Nielson Primary Care Provider: Kristin Holliday Discharge Orders/Prescriptions Prescriptions: No Action venlafaxine [Effexor XR] 75 mg Capsule,Extended Release 24hr 225 mg PO DAILY gabapentin 600 mg tablet 600 mg PO TID acetaminophen 650 mg Tablet 650 mg PO Q6H PRN (Reason: Pain) tramadol 50 mg tablet 100 mg PO TID Label Comments: TAKE 1 TO 2 TABLETS BY MOUTH THREE TIMES DAILY NEEDED FOR SEVERE PAIN pantoprazole 20 mg tablet,delayed release (DR/EC) 20 mg PO DAILY ferrous sulfate 325 mg (65 mg iron) Tablet 325 mg PO BID zolpidem [Ambien] 10 mg Tablet 10 mg PO QHS PRN (Reason: Sleep) prazosin 2 mg capsule 2 mg PO QHS diclofenac sodium 1 % gel 1 g TOPICAL BID Centrum Silver Men 300-600-300 mcg Tablet 1 tab PO DAILY calcium carb-mag ox-zinc gluc 333-133-5 mg Tablet 3 tab PO DAILY oxycodone-acetaminophen [Endocet] 5-325 mg tablet 2 tab PO Q4H PRN (Reason: pain) 7 Days Qty: 20 0RF Referrals / Follow Up: Kristin Holliday DO [Primary Care Provider] - Kervin Nielson MD [Med Staff - Active Staff] - 07/12/22 0758<Electronically signed by Kervin Nielson MD>Kervin Nielson MD CC: Dr. Kristin Holliday, ~ Signed [facility] Work Phone: 1(110) 438-576004-15-2023 Procedure [facility] 07-11-2022 History and physical note Author Dr. Nielson [facility] July 11, 2022 6:00pm Note Date/Time July 11, 2022 6:0 0pm [facility] Medical Records Department [address] [place] [address] History & Physical Exam 07/11/221758 MR#: [id number] Acct: [id number] Name: MICHAEL PARIKH Rep #:[id number] : 1970 52 From: Kervin Nielson MD PCP: Dr. Kristin Holliday, Status:[facility] Location: [facility] [id number] HPI - General General Date of Admission: 07/11/22 Chief Complaint: Severe left flank pain HPI Narrative MICHAEL PARIKH, is a 52 M who presents to the hospital with severe pain on the left side status post left ESWL and stent placement stent was removed then he presented to an outside emergency room with severe left flank pain he was transferred here for further care KUB demonstrates multiple fragments of distal left ureter has not been able to pass so plan to take him to surgery tomorrow for laser lithotripsy of these fragments and extraction of these fragments and stent placement to left side. [facility] Medical History (Updated 07/11/22 @ 00:22 by Lei Gunn) Alcohol use Anemia Anxiety Arthritis Asthma Depression Gastric reflux History of echocardiogram History of pain when walking History of ulceration Injury of back Injury of head and neck Kidney stones Leg cramps Migraine headache Seizures Sleep apnea Wears glasses Home Medications acetaminophen 650 mg tablet 650 mg PO Q6H PRN Pain 06/18/22 [History Last Taken Unknown] calcium carbonate 333 mg-magnesium oxide 133 mg-zinc gluc 5 mg tablet 3 tab PO DAILY supplement 06/18/22 [History Last Taken 07/10/22] diclofenac sodium 1 % topical gel 1 g topical BID joint pain 06/18/22 [History Last Taken Unknown] ferrous sulfate 325 mg (65 mg iron) tablet 325 mg PO BID supplement 06/18/22 [History Last Taken 07/10/22] gabapentin 600 mg tablet 600 mg PO TID joint pain 06/18/22 [History Last Taken 07/10/22] sfqgkloz-nff-tqktx acid 300 mcg-lycopene 600 mcg-lutein 300 mcg tablet (Centrum Silver Men) 1 tab PO DAILY supplement 06/18/22 [History Last Taken 07/10/22] pantoprazole 20 mg tablet,delayed release 20 mg PO DAILY GERD 06/18/22 [History Last Taken 07/10/22] prazosin 2 mg capsule 2 mg PO QHS nightmares 06/18/22 [History Last Taken 07/09/22] tramadol 50 mg tablet 100 mg PO TID pain 06/18/22 [History Last Taken 07/10/22] venlafaxine 75 mg capsule,extended release 24 hr (Effexor XR) 225 mg PO DAILY anxiety 06/18/22 [History Last Taken 07/10/22] zolpidem 10 mg tablet (Ambien) 10 mg PO QHS PRN Sleep 06/18/22 [History Last Taken 07/09/22] oxycodone-acetaminophen 5 mg-325 mg tablet (Endocet) 2 tab PO Q4H PRN pain 7 days #20 tabs 07/10/22 [Rx Last Taken Unknown] Allergy/AdvReac Type Severity Reaction Status Date / Time amoxicillin Allergy Rash Verified 06/25/22 14:31 bupropion [From Wellbutrin] Allergy Other Verified 06/25/22 14:31 Penicillins [PCN] Allergy Rash Verified 06/25/22 14:31 Surgical History History of esophagogastroduodenoscopy (EGD) Hx laparoscopic cholecystectomy Hx of arthroscopic knee surgery Hx of arthroscopy of shoulder Hx of colonoscopy Hx of gastric bypass Hx of hernia repair Hx of tonsillectomy Hx of total hip arthroplasty Hx of vasectomy Social History Smoking Status: Current every day smoker tobacco type: cigarettes Vital Signs Vital Signs Vital Signs: 07/11/22 00:08 07/11/22 07:55 07/11/22 15:32 Temperature 97.4 F L 97.7 F L 97.2 F L Temperature Source Oral Temporal Temporal Pulse Rate 67 69 68 Respiratory Rate 18 18 18 Blood Pressure 140/92 H 133/90 H 123/72 H Blood Pressure Mean 108 104 89 Blood Pressure Source Monitor Blood Pressure Position Semi-Fowlers Blood Pressure Location Left Arm Pulse Ox 98 96 97 Oxygen Delivery Method Room Air Room Air Room Air Weight Weight: 94.7 kg Body Mass Index (BMI) 31.7 Physical Exam Const alert and oriented x3 General Appearance: cooperative HEENT normocephalic, head/scalp atraumatic, EAC's normal and TM's normal bilaterally Eyes PERRL and EOMs intact bilaterally Pupil: sluggish Neck no lymphadenopathy, supple and no JVD General: trachea midline Lymph Lymphatic: no lymphadenopathy noted, lymphedema and lymphadenopathy Resp normal respiratory effort, normal air movement and clear to auscultation bilaterally Cardio regular rate, regular rhythm and peripheral pulses 2+ throughout GI soft to palpation, non-tender and non-distended Extremity normal capillary refill and no clubbing, cyanosis or edema General Extremity: no tenderness to palpation of joints or extremities Skin no rashes or lesions noted General Skin Exam: turgor normal Lesions: no lesions Rashes: no rashes Neuro CN's II-XII intact bilaterally Speech: speech normal Motor Exam: strength 5/5 throughout; Negative for general weakness Psych thought process normal, cooperative and affect normal Appearance: appropriate Results Lab / Micro Data Result Diagrams: 07/11/22 06:26 Labs: Laboratory Results - last 24 hr 07/11/22 06:26: WBC 8.5, RBC 4.32 L, Hgb 13.8, Hct 42.2, MCV 97.7 H, MCH 31.9, MCHC 32.7, RDW Std Deviation 44.7 H, RDW Coeff of Nichole 12.4, Plt Count 284, MPV 10.1, Immature Gran % (Auto) 0.400, Neut % (Auto) 55.7, Lymph % (Auto) 28.0, Cataño % (Auto) 12.4 H, Eos % (Auto) 2.8, Baso % (Auto) 0.7, Absolute Neuts (auto)4.7, Absolute Lymphs (auto) 2.37, Nucleated RBC % 0 Radiology Impression KUB X-Ray 07/11/22 14:00 IMPRESSION: Status post removal of the left-sided JJ stent. Persistent subtle densities in the left hemipelvis likely sequela from previous lithotripsy No acute findings Electronically Signed: Ezequiel Jimenez MD at 14:01 EDT Reading Location ID and State: [facility] / [place] , Service support , Assessment & Plan Assessment/Plan (1) Kidney stone on left side: PLAN: Plan for laser and basket extraction of stones on the left side and stent placement 07/11/22 1800 <Electronically signed by Kervin Nielson MD> Cosigner Signature (if applicable): CC: Dr. Kristin Holliday DO; Dr. Kervin Nielson MD~ Signed [facility] Work Phone: Evaluation + Plan note No data available for this section [facility] Evaluation noteNo assessment information available [facility] Work Phone: Evaluation note* Diagnosis Onset Date Resolution Status Kidney stone on left side ac [place] [facility] Work Phone: Reason for referral (narrative)No reason for referral information [facility]WSouthern [facility] Work Phone: Summary Purpose Family History No Family History Records Found No Known Family History Onset:04-Oct-2024 Status:Active No Known Family History Onset:04-Oct-2024 Status:Active No Known Family History Onset:04-Oct-2024 Status:Active No Known Family History Onset:04-Oct-2024 Status:Active No Known Family History Onset:04-Oct-2024 Status:Active Advance Directives No Advanced Directives Records Found Advance Directive Response Recorded Date/ Time Name of Medical Power of Building Architectural Designer Manish Parikh July 11, 2022 12:24am Living Will No July 11, 2022 12:24am Power of Building Architectural Designer Yes July 11 12:24am Advance Directive Response Recorded Date/ Time Living Will No July 10, 2022 11:24pm Power of Building Architectural Designer Yes July 10 11:24pm Chief Complaint and Reason for Visit Chief Complaint NEOPLASMA OF PROSTAT E Chief Complaint NEOPLASMA OF PROSTAT E ABD PAIN Chief Complaint NEOPLASMA OF PROSTAT E ABD PAIN lt eswl with stent ALSO IN AN EORDER KIDNEY STONE Reason for Visit Kidney stone on left side Additional Source Comments (unrecognized sect ion and content) No Status Records FoundNo Status Records FoundNo Status Records FoundNo Status Records FoundNo Status Records FoundNo Status Records Found INFORMATION SOURCE (unrecogn ized section and content) DATE CREATED AUTHOR 11/27/[address] [facility] DATE CREATED AUTHOR AUTHOR'S ORGANIZ ATION 08/01/2022 [facility] ([place]) DATE CREATED AUTHOR AUTHOR'S ORGANIZ ATION 12/25/2023 DATE CREATED AUTHOR AUTHOR'S ORGANIZ ATION 10/27/2024 [facility] DATE CREATED AUTHOR AUTHOR'S ORGANIZ ATION 01/14/2025 [facility] DATE CREATED AUTHOR AUTHOR'S ORGANIZ ATION 01/21/2025 [facility] Care Teams (unrecognized sec tion and content) Team Status: Active Member Role Status Dates Dr. Roxi Stallworth MD Family Provider Active Dr. Kristin Holliday , DO Primary Care Provider Active Team Status: Inactive Member Role Status Dates Dr. Kristin Holliday DO Primary Care Provider Active Dr. Kervin Nielson MD Attending Provider, Referr ing Provider Active Team Status: Active Member Role Status Dates Dr. Kristin Holliday DO Primary Care Provider Active Dr. Kervin Nielson MD Attending Provider, Referr ing Provider Active Team Status: Inactive Member Role Status Dates Dr. Kristin Holliday DO Primary Care Provider Active Dr. Kervin Nielson MD Admit Provider, Attending Provider Active Team Status: Active Member Role Status Dates Dr. Roxi Stallworth MD Family Provider Active RETAIL SPECIALISTBrandie Narvaez RETAIL SPECIALIST-C Primary Care Provider Activ e Team Status: Inactive Member Role Status Dates NP. Ananya Narvaez RETAIL SPECIALIST-C Primary Care Provider Activ e Dr. Luis Lindquist MD Attending Provider, Referring Provider Active Team Status: Active Member Role/Relationship Status Dates Dr. Roxi Stallworth MD Family Provider Active LENA Miller Primary Care Provider Active Team Status: Inactive Member Role/Relationship Status Dates LENA Miller Primary Care Provider Active S tart: October 21, 2024 End: October 21, 2024 LENA Bishop Attending Provider Active Start : October 21, 2024 End: October 21, 2024 LENA Bishop Referring Provider Active Start : October 21, 2024 End: October 21, 2024 Goals (unrecognized section and content) Goals may be documented in a n alternate sectionGoals may be documented in an alternate sectionGoals may be documented in an alternate section No data available for this sectionGoals may be documented in an alternate section FOR RECORDS PERTAINING TO PATIENTS WHO ARE OR HAVE BEEN ENROLLED IN A CHEMICAL DEPENDENCY/SUBSTANCEABUSE PROGRAM, SOME INFORMATION MAY BE OMITTED. This clinical summary was aggregated from multiple sources. Caution should be exercised in using it in the provision of clinical care. This summary normalizes information from multiple sources, and as a consequence, information in this document may materially change the coding, format and clinical context of patient data. In addition, data may be omitted in some cases. CLINICAL DECISIONS SHOULD BE BASED ON THE PRIMARY CLINICAL RECORDS. [facility] [employer] [facility]. provides no warranty or guarantee of the accuracy or completeness of information in this document.
== END | disposition home or self-care (01) ==
LOC: RAD 12:47
PROVIDERS: Referring Provider Anesthesiology; Visit Provider Anesthesiology
DX: M25.552 Pain in left hip (principal); M25.551 Pain in right hip
CPT/HCPCS: 73521

== ENCOUNTER → 2025-02-27 | Outpatient (CLI) | payer MEDICARE, OTHER, SELFPAY | END | disposition home or self-care (01) | LOC: PSN 07:54 | DX: R56.9 Unspecified convulsions (principal) | CPT/HCPCS: 95819 ==

== ENCOUNTER → 2025-03-07 | Outpatient (CLI) | payer MEDICARE, OTHER, SELFPAY ==
--- NOTE | 2025-03-07 11:02 | MRI_ITS ---
PROCEDURE: BRAIN W/WO CONTRAST 03/07/2025 REASON FOR EXAM: SUSPECTED SEIZURES TECHNIQUE: Procedure Code: [id number] Modality: MR Procedure: BRAIN W/WO CONTRAST Multiplanar and multisequence images were obtained. CONTRAST: Clariscan VOLUME: 22 ML COMPARISON: None. FINDINGS: Brain: No restricted diffusion. No hemorrhage. No mass-effect or midline shift. Foci of hyperintense signal on T2 and FLAIR in the white matter which are nonspecific but most likely due to chronic small- vessel ischemia. No masses. The orbits are unremarkable. Diffusion: No restricted diffusion. Ventricles: No ventriculomegaly. Major Intracranial Vessels: Patent. Sinuses: Clear. Mastoids: Clear. MRI/Brain W/WO Contrast IMPRESSION: Few foci of hyperintense signal on T2 and FLAIR in the white matter which are n onspecific but most likely due to chronic small-vessel ischemia. No acute brain abnormalities. No masses or abnormal enhancement. Reading Location: [facility]
== END | disposition home or self-care (01) ==
LOC: MRI 11:00
DX: R56.9 Unspecified convulsions (principal); G31.84 Mild cognitive impairment of uncertain or unknown etiology
CPT/HCPCS: 70553; A9575; A4216